=== PATIENT | female | born 1930 | race Caucasian/White ===

== ENCOUNTER 2017-06-25 09:47 | Emergency (ER) | payer MEDICARE ==
[2017-06-25] MEDS ORDERED: Sodium Chloride 0.9% 2.5 ML Syringe FLUSH PRN (09:49)
[2017-06-25] MEDS ORDERED: Sodium Chloride 0.9% 10 ML Syringe FLUSH PRN (09:49)
[2017-06-25] MEDS ORDERED: Ondansetron 4 MG/2 ML SDV IVPUSH ONE (09:53)
--- NOTE | 2017-06-25 09:57 | EDM.PDOC ---
ED HPI GENERAL MEDICAL PROBLEM - General Chief Complaint: Back Pain or Injury Stated Complaint: AMB Time Seen by Provider: 06/25/17 09:48 Source of Information: Reports: EMS History Limitations: Reports: No Limitations - History of Present Illness INITIAL COMMENTS - FREE TEXT/NARRATIVE: History of present illness: []Patient fell yesterday without loss of consciousness was helped by her daughter. She arrived by EMS in a c-collar. She hit the back of her head and complains of a headache, neck pain, left shoulder pain and right knee pain. Not ambulated since this injury. She denies any chest pain or any new shortness of breath. Review of systems: As per history of present illness and below otherwise all systems reviewed and negative. Past medical history: As per history of present illness and as reviewed below otherwise noncontributory. Surgical history: As per history of present illness and as reviewed below otherwise noncontributory. Social history: No reported history of drug or alcohol abuse. Family history: As per history of present illness and as reviewed below otherwise noncontributory. Physical exam: General: Well developed, well nourished in NAD HEENT: Atraumatic, normocephalic, pupils reactive, negative for conjunctival pallor or scleral icterus, mucous membranes moist, throat clear, neck supple, nontender, trachea midline. Lungs: Clear to auscultation, breath sounds equal bilaterally, chest nontender. Heart: S1S2, regular, negative for clicks, rubs, or JVD. Abdomen: Soft, nondistended, nontender. Negative for masses or hepatosplenomegaly. Negative for costovertebral tenderness. Pelvis: Stable nontender. Genitourinary: Deferred. Rectal: Deferred. Extremities: Atraumatic, no obvious injuries, tenderness of the left shoulder without any swelling erythema or deformities, tenderness of the right knee without any obvious deformities tenderness or swelling. Neurovascular unremarkable. Neuro: Awake, alert, oriented. Cranial nerves II through XII unremarkable. Cerebellum unremarkable. Motor and sensory unremarkable throughout. Exam nonfocal. Diagnostics: []CT head and neck are negative, x-rays of her left shoulder and right knee are also negative. Labs are normal UA shows a mild UTI Therapeutics: [] Impression: []UTI, fall Plan: []Tylenol or Motrin for pain Bactrim as directed Definitive disposition and diagnosis as appropriate pending reevaluation and review of above. Lower Back Pain Score (Numeric/FACES): 6 - Related Data Allergies Allergy/AdvReac Type Severity Reaction Status Date / Time acetaminophen Allergy Hallucinati Verified 06/25/17 10:15 [From Darvocet-N] ons candesartan [From Atacand] Allergy Hallucinati Verified 06/25/17 10:15 ons enalaprilat [From Vasotec] Allergy Hallucinati Verified 06/25/17 10:15 ons lisinopril Allergy Hallucinati Verified 06/25/17 10:15 ons morphine Allergy Hallucinati Verified 06/25/17 10:15 ons propoxyphene Allergy Hallucinati Verified 06/25/17 10:15 [From Darvocet-N] ons tramadol Allergy Hallucinati Verified 06/25/17 10:15 ons Home Meds: Home Meds Acetaminophen 500 mg PO DAILY 06/25/17 [History] Albuterol [Proventil HFA] 200 puff INH DAILY 06/25/17 [History] Aspirin 325 mg PO DAILY 06/25/17 [History] Budesonide/Formoterol [Symbicort 80-4.5 MCG] 6.9 gm INH DAILYRT 06/25/17 [ History] Calcium Carbonate 1,250 mg PO DAILY 06/25/17 [History] Carboxymethylcellulose [Methocel E 4 M] 1 gm PO DAILY 06/25/17 [History] Diclofenac Sodium 1 unit TOP DAILY 06/25/17 [History] Furosemide 20 mg PO DAILY 06/25/17 [History] Losartan [Cozaar] 50 mg PO DAILY 06/25/17 [History] Lutein/Zeaxanthin [Lutein-Zeaxanthin 25-5 mg Sfgl] 1 cap PO DAILY 06/25/17 [ History] Metoprolol Tartrate 50 mg PO DAILY 06/25/17 [History] Multivitamin [Multivitamins] 1 tab PO DAILY 06/25/17 [History] Potassium Chloride 10 meq PO DAILY 06/25/17 [History] Sulfamethoxazole/Trimethoprim [Bactrim Ds Tablet] 1 each PO BID #20 tablet 06/25 [Rx] atorvaSTATin [Lipitor] 40 mg PO DAILY 06/25/17 [History] Review of Systems - Review of Systems Review Of Systems: See Below (See history of present illness) ED EXAM, GENERAL - Physical Exam Exam: See Below (See history of present illness) Course - Vital Signs Last Recorded V/S: Last Vital Signs Temp 96.6 F 06/25/17 10:37 Pulse 66 06/25/17 12:10 Resp 13 06/25/17 12:10 BP 170/77 H 06/25/17 12:10 Pulse Ox 93 L 06/25/17 12:10 - Orders/Labs/Meds Orders: Active Orders 24 hr Category Date Time Status Ibuprofen [Motrin] Med 06/25/17 12:31 Once 400 mg PO ONETIME ONE Sodium Chloride 0.9% [Saline Flush] Med 06/25/17 09:49 Active 10 ml FLUSH ASDIRECTED PRN Sodium Chloride 0.9% [Saline Flush] Med 06/25/17 09:49 Active 2.5 ml FLUSH ASDIRECTED PRN Saline Lock Insert [OM.PC] Stat Oth 06/25/17 09:49 Ordered Medication Orders Sodium Chloride (Saline Flush) 10 ml FLUSH ASDIRECTED PRN PRN Reason: Keep Vein Open Last Admin: 06/25/17 10:48 Dose: 10 ml Sodium Chloride (Saline Flush) 2.5 ml FLUSH ASDIRECTED PRN PRN Reason: Keep Vein Open Last Admin: 06/25/17 10:48 Dose: 2.5 ml Labs: Laboratory Tests 06/25/17 06/25/17 06/25/17 Range/Units 10:05 10:05 10:18 WBC 6.21 (4.0-11.0) K/uL RBC 3.85 L (4.30-5.90) M/uL Hgb 11.6 L (12.0-16.0) g/dL Hct 36.2 (36.0-46.0) % MCV 94.0 (80.0-98.0) fL MCH 30.1 (27.0-32.0) pg MCHC 32.0 (31.0-37.0) g/dL RDW Std Deviation 48.4 (28.0-62.0) fl RDW Coeff of Rosalinda 14 (11.0-15.0) % Plt Count 164 (150-400) K/uL MPV 9.20 (7.40-12.00) fL Neut % (Auto) 65.5 (48.0-80.0) % Lymph % (Auto) 18.2 (16.0-40.0) % [place] % (Auto) 7.7 (0.0-15.0) % Eos % (Auto) 8.1 H (0.0-7.0) % Baso % (Auto) 0.5 (0.0-1.5) % Neut # (Auto) 4.1 (1.4-5.7) K/uL Lymph # (Auto) 1.1 (0.6-2.4) K/uL [place] # (Auto) 0.5 (0.0-0.8) K/uL Eos # (Auto) 0.5 (0.0-0.7) K/uL Baso # (Auto) 0.0 (0.0-0.1) K/uL Nucleated RBC % 0.0 /100WBC Nucleated RBCs # 0 K/uL Sodium 138 (136-146) mmol/L Potassium 4.7 (3.5-5.1) mmol/L Chloride 106 (98-110) mmol/L Carbon Dioxide 23 (21-31) mmol/L BUN 11 (6.0-23.0) mg/dL Creatinine 0.8 (0.6-1.5) mg/dL Est Cr Clr Drug Dosing 27.85 mL/min Estimated GFR (MDRD) > 60.0 ml/min Glucose 97 (60-110) mg/dL Calcium 9.8 (8.8-10.8) mg/dL Total Bilirubin 1.0 (0.1-1.5) mg/dL AST 24 (5-40) IU/L ALT 12 (8-54) IU/L Alkaline Phosphatase 75 (40-150) Total Protein 6.3 (6.0-8.0) g/dL Albumin 3.8 (3.4-4.8) g/dL Globulin 2.5 (2.0-3.5) g/dL Albumin/Globulin Ratio 1.5 (1.3-2.8) Urine Color YELLOW Urine Appearance CLEAR Urine pH 5.5 (5.0-8.0) Ur Specific Mineral <= 1.005 (1.001-1.035) Urine Protein NEGATIVE (NEGATIVE) mg/dL Urine Glucose (UA) NEGATIVE (NEGATIVE) mg/dL Urine Ketones NEGATIVE (NEGATIVE) mg/dL Urine Occult Blood TRACE-INTACT (NEGATIVE) Urine Nitrite POSITIVE H (NEGATIVE) Urine Bilirubin NEGATIVE (NEGATIVE) Urine Urobilinogen 0.2 (<2.0) EU/dL Ur Leukocyte Esterase SMALL (NEGATIVE) Urine RBC 0-1 (0-2/HPF) Urine WBC 2-3 (0-5/HPF) Ur Epithelial Cells RARE (NONE-FEW) Urine Bacteria 3+ H (NEGATIVE) Meds: Medications Generic Name Dose Route Start Last Admin Trade Name Freq PRN Reason Stop Dose Admin Sodium Chloride 10 ml 06/25/17 09:49 06/25/17 10:48 Saline Flush FLUSH 10 ml ASDIRECTED PRN Administration Keep Vein Open Sodium Chloride 2.5 ml 06/25/17 09:49 06/25/17 10:48 Saline Flush FLUSH 2.5 ml ASDIRECTED PRN Administration Keep Vein Open Discontinued Medications Generic Name Dose Route Start Last Admin Trade Name Freq PRN Reason Stop Dose Admin Morphine Sulfate 2 mg 06/25/17 09:53 06/25/17 10:52 Morphine IVPUSH 06/25/17 09:54 Not Given ONETIME ONE Ondansetron HCl 4 mg 06/25/17 09:53 06/25/17 10:48 Zofran IVPUSH 06/25/17 09:54 4 mg ONETIME ONE Administration Departure - Departure Time of Disposition: 12:31 Disposition: Home, Self-Care 01 Condition: Good Clinical Impression: Fall Qualifiers: Encounter type: initial encounter Qualified Code(s): W19.XXXA - Unspecified fall, initial encounter UTI (urinary tract infection) Qualifiers: Urinary tract infection type: site unspecified Hematuria presence: without hematuria Qualified Code(s): N39.0 - Urinary tract infection, site not specified - Discharge Information Prescriptions: Sulfamethoxazole/Trimethoprim [Bactrim Ds Tablet] 1 each PO BID #20 tablet Referrals: Bradley Palma MD [Primary Care Provider] - Forms: ED Department Discharge Additional Instructions: The following information is given to patients seen in the emergency department who are being discharged to home. This information is to outline your options for follow-up care. We provide all patients seen in our emergency department with a follow-up referral. The need for follow-up, as well as the timing and circumstances, are variable depending upon the specifics of your emergency department visit. If you don't have a primary care physician on staff, we will provide you with a referral. We always advise you to contact your personal physician following an emergency department visit to inform them of the circumstance of the visit and for follow-up with them and/or the need for any referrals to a consulting specialist. The emergency department will also refer you to a specialist when appropriate. This referral assures that you have the opportunity for follow-up care with a specialist. All of these measure are taken in an effort to provide you with optimal care, which includes your follow-up. Under all circumstances we always encourage you to contact your private physician who remains a resource for coordinating your care. When calling for follow-up care, please make the office aware that this follow-up is from your recent emergency room visit. If for any reason you are refused follow-up, please contact the [facility] Emergency Department at and asked to speak to the emergency department charge nurse. Bactrim as directed Tylenol or Motrin for pain follow-up with PMD [facility] [address] [place] [id number] - My Orders Last 24 Hours: My Active Orders 06/25/17 09:49 Sodium Chloride 0.9% [Saline Flush] 10 ml FLUSH ASDIRECTED PRN Sodium Chloride 0.9% [Saline Flush] 2.5 ml FLUSH ASDIRECTED PRN Saline Lock Insert [OM.PC] Stat 06/25/17 12:31 Ibuprofen [Motrin] 400 mg PO ONETIME ONE - Assessment/Plan Last 24 Hours: My Active Orders 06/25/17 09:49 Sodium Chloride 0.9% [Saline Flush] 10 ml FLUSH ASDIRECTED PRN Sodium Chloride 0.9% [Saline Flush] 2.5 ml FLUSH ASDIRECTED PRN Saline Lock Insert [OM.PC] Stat 06/25/17 12:31 Ibuprofen [Motrin] 400 mg PO ONETIME ONE
[2017-06-25] MEDS: Morphine 2 MG/ML Syringe IVPUSH ONE ×2 (10:48→10:52)
[2017-06-25 10:56] LABS: CHLORIDE,CL 106 mmol/L (98-110); SODIUM,NA 138 mmol/L (136-146)
--- NOTE | 2017-06-25 11:40 | CT ---
EXAMINATION: Non contrast CT head. Coronal and sagittal reformats. HISTORY: Pain FINDINGS: No evidence of intra or extra axial hemorrhage, mass, midline shift, hydrocephalus or edema. Moderat e generalized atrophy and periventricular and subcortical white matter hypodensities. No hypoattenuation changes in the major vascular territories to suggest acute infarct. No abnormal intracranial calcifications are detected. No evidence of substantial vascular calcificat ions. Paranasal sinuses and mastoid air cells are well aerated without substantial findings. Old left lami na papyracea fracture. Pituitary fossa appears unremarkable. Calvarium is intact. No evidence of skull fracture. IMPRESSION: 1. No acute intracranial findings. 2. Generalized atrophy and small vessel ischemic changes.
--- NOTE | 2017-06-25 12:09 | CR ---
EXAMINATION: Left shoulder HISTORY: Pain COMPARISON: None TECHNIQUE: 3 views FINDINGS: Severe joint space narrowing is noted within the glenohumeral joint and moderate acromiocla vicular osseous changes. No fracture or acute osseous abnormality. Bone mineralization is normal to o steopenic. 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
--- NOTE | 2017-06-25 12:11 | CR ---
EXAMINATION: Right knee HISTORY: Pain COMPARISON: None TECHNIQUE: 3 views FINDINGS: There is no acute osseous abnormality, effusion, dislocation, or fracture. Right total knee hardware is demonstrated in good position and alignment. Joint space narrowing and degenerative limon ges noted within the patellofemoral compartment. Bone mineralization is otherwise osteopenic. Vascula r calcifications are noted. IMPRESSION: Degenerative and postoperative changes without acute findings.
--- NOTE | 2017-06-25 12:15 | CT ---
EXAMINATION: CT cervical spine HISTORY: Pain COMPARISON: None TECHNIQUE: Axial CT images obtained through the cervical spine without contrast. Coronal and sagittal reconstructions obtained. FINDINGS: Mild reversal of the normal cervical lordosis. The vertebral body heights appear maintained . No definite fracture or acute osseous abnormality. The osseous structures are notable the osteopeni c. Trace anterolisthesis of C4 on C5. Mild marginal osteophytes osteophyte disc complexes noted throu ghout the cervical spine. Mild vascular calcifications within the carotids. The lung apices are clear . Paravertebral soft tissues appear normal. IMPRESSION: 1. Moderate degenerative changes and osteopenia without acute findings.
[2017-06-25] MEDS ORDERED: Ibuprofen 400 MG Tab PO ONE (12:31)
== END 2017-06-25 12:59 | disposition home or self-care (01) ==
LOC: MW.ED 09:47
DX: M54.2 Cervicalgia (principal); R51 Headache; M25.512 Pain in left shoulder; M25.561 Pain in right knee; N39.0 Urinary tract infection, site not specified; Z79.82 Long term (current) use of aspirin; Z79.899 Other long term (current) drug therapy; Z88.5 Allergy status to narcotic agent; Z88.8 Allergy status to other drugs, medicaments and biological substances; Z88.6 Allergy status to analgesic agent; W19.XXXA Unspecified fall, initial encounter
CPT/HCPCS: 36415; 70450; 72125; 73030; 73562; 80053; 81001; 85025; 96374; 99284; A9270; J2405; J2270

== ENCOUNTER 2017-07-15 15:55 | Emergency (ER) | payer MEDICARE ==
[2017-07-15] MEDS ORDERED: Albuterol/Ipratropium 3.0-0.5 MG/3 ML Neb Soln NEB ONE (17:13)
--- NOTE | 2017-07-15 17:16 | EDM.PDOC ---
ED HPI GENERAL MEDICAL PROBLEM - General Chief Complaint: Respiratory Problem Stated Complaint: coughing up blood Time Seen by Provider: 07/15/17 16:15 Source of Information: Reports: Patient, Family History Limitations: Reports: No Limitations - History of Present Illness INITIAL COMMENTS - FREE TEXT/NARRATIVE: HISTORY AND PHYSICAL: History of present illness: [Pt is brought to the ER by her daughter, whom she lives with. Patient has had a cough for the past 3 days, which has worsened today. Daughter thinks that she may have seen some blood streaked in patient's sputum today and is concerned. Has noticed some wheezing at times. Appetite has been normal. No fever or chills. Patient denies ST, ear aches, runny nose. She has had no sputum production, abd pain, change in bowel or bladder. No chest pain, SOA or difficulty breathing. No swelling to her feet or lower legs. Denies body aches and pains. No recent illness or infection other than today's symptoms. Has not taken any medications for her symptoms. ] Review of systems: As per history of present illness and below otherwise all systems reviewed and negative. Past medical history: As per history of present illness and as reviewed below otherwise noncontributory. Surgical history: As per history of present illness and as reviewed below otherwise noncontributory. Social history: No reported history of drug or alcohol abuse. Family history: As per history of present illness and as reviewed below otherwise noncontributory. Physical exam: HEENT: Atraumatic, normocephalic. Oral mucous membranes are pink and moist. Neck supple, no lymphadenopathy. PERRLA. Conjunctiva clear. Lungs: Wheezing is appreciated throughout all lung renee. Cough is primarily dry. Heart: S1S2, regular rate and rhythm. Abdomen: Soft, nondistended, nontender. Pelvis: Stable nontender. Ambulates well with a wheeled walker. Genitourinary: Deferred. Rectal: Deferred. Extremities: Atraumatic, no swelling or cyanosis to feet or lower legs. Neurovascular unremarkable. Neuro: Awake, alert, oriented. Motor and sensory unremarkable throughout. Exam nonfocal. Diagnostics: [CBC, CMP, influenza A and B swab, chest x-ray] Therapeutics: [DuoNeb] Impression: [Bronchitis Influenza B] Plan: [Chest x-ray is clear. White count shows no elevation, hemoglobin stable. Rx's written for DuoNeb (#30) si per nebulizer TID 0 RF's, Medrol dose pack (#1) sig: use as directed 0 RF's. Daughter verbalized understanding of plan. She would like to pecan picker Rx's tomorrow at their preferred pharmacy. *Of note, it is not noticed until end of shift that patient tested positive for Influenza B. Daughter is notified of this, and that patient is outside the treatment window of benefit for Tamiflu. Encouraged close monitoring and strict return precautions. She is in agreement with today's plan and verbalized understanding.] Definitive disposition and diagnosis as appropriate pending reevaluation and review of above. back pain Pain Score (Numeric/FACES): 5 - Related Data Allergies Allergy/AdvReac Type Severity Reaction Status Date / Time acetaminophen Allergy Hallucinati Verified 06/25/17 10:15 [From Darvocet-N] ons candesartan [From Atacand] Allergy Hallucinati Verified 06/25/17 10:15 ons enalaprilat [From Vasotec] Allergy Hallucinati Verified 06/25/17 10:15 ons lisinopril Allergy Hallucinati Verified 06/25/17 10:15 ons morphine Allergy Hallucinati Verified 06/25/17 10:15 ons propoxyphene Allergy Hallucinati Verified 06/25/17 10:15 [From Darvocet-N] ons tramadol Allergy Hallucinati Verified 06/25/17 10:15 ons Home Meds: Home Meds RX: Acetaminophen 500 mg PO DAILY 06/25/17 [History] RX: Albuterol [Proventil HFA] 200 puff INH DAILY 06/25/17 [History] RX: Aspirin 325 mg PO DAILY 06/25/17 [History] RX: Budesonide/Formoterol [Symbicort 80-4.5 MCG] 6.9 gm INH DAILYRT 06/25/17 [ History] RX: Calcium Carbonate 1,250 mg PO DAILY 06/25/17 [History] RX: Carboxymethylcellulose [Methocel E 4 M] 1 gm PO DAILY 06/25/17 [History] RX: Diclofenac Sodium 1 unit TOP DAILY 06/25/17 [History] RX: Furosemide 20 mg PO DAILY 06/25/17 [History] RX: Losartan [Cozaar] 50 mg PO DAILY 06/25/17 [History] RX: Lutein/Zeaxanthin [Lutein-Zeaxanthin 25-5 mg Sfgl] 1 cap PO DAILY 06/25/17 [ History] RX: Metoprolol Tartrate 50 mg PO DAILY 06/25/17 [History] RX: Multivitamin [Multivitamins] 1 tab PO DAILY 06/25/17 [History] RX: Potassium Chloride 10 meq PO DAILY 06/25/17 [History] RX: atorvaSTATin [Lipitor] 40 mg PO DAILY 06/25/17 [History] Sulfamethoxazole/Trimethoprim [Bactrim Ds Tablet] 1 each PO BID #20 tablet 06/25 [Rx] Past Medical History HEENT History: Reports: Other (See Below) Other HEENT History: nasal polups Cardiovascular History: Reports: Afib, High Cholesterol, Other (See Below) Other Cardiovascular History: Enlagred heart Respiratory History: Reports: None Gastrointestinal History: Reports: None Genitourinary History: Reports: None TIME BUYER History: Reports: None Musculoskeletal History: Reports: None Neurological History: Reports: TIA, Other (See Below) Other Neuro History: Brain bleed Psychiatric History: Reports: None Endocrine/Metabolic History: Reports: None Hematologic History: Reports: None Immunologic History: Reports: None Oncologic (Cancer) History: Reports: None Dermatologic History: Reports: None - Past Surgical History Head Surgeries/Procedures: Reports: None HEENT Surgical History: Reports: None Cardiovascular Surgical History: Reports: None Respiratory Surgical History: Reports: None GI Surgical History: Reports: None Female Surgical History: Reports: None Endocrine Surgical History: Reports: None Neurological Surgical History: Reports: None Musculoskeletal Surgical History: Reports: Hip Replacement, Joint Replacement, Knee Replacement, Shoulder Replacement Oncologic Surgical History: Reports: None Dermatological Surgical History: Reports: None Social & Family History - Family History Family Medical History: Noncontributory - Tobacco Use Smoking Status *Q: Former Smoker Used Tobacco, but Quit: Yes Month Tobacco Last Used: 35 years ago Second Hand Smoke Exposure: No - Caffeine Use Caffeine Use: Reports: Coffee Caffeine Use Comment: 1 cup - Recreational Drug Use Recreational Drug Use: No ED ROS GENERAL - Review of Systems Review Of Systems: ROS reveals no pertinent complaints other than HPI. ED EXAM, GENERAL - Physical Exam Exam: See Below Course - Vital Signs Last Recorded V/S: Last Vital Signs Temp 97.6 F 03/04/18 16:22 Pulse 62 07/15/17 16:22 Resp 16 07/15/17 16:22 BP 129/69 07/15/17 16:22 Pulse Ox 96 07/15/17 16:22 - Orders/Labs/Meds Orders: Active Orders 24 hr Category Date Time Status RT Aerosol Therapy [RC] ASDIRECTED Care 07/15/17 17:13 Active Chest 2V [CR] Stat Exams 07/15/17 16:20 Taken Labs: Laboratory Tests 07/15/17 07/15/17 Range/Units 16:30 16:30 WBC 3.28 L (4.0-11.0) K/uL RBC 3.78 L (4.30-5.90) M/uL Hgb 11.2 L (12.0-16.0) g/dL Hct 35.2 L (36.0-46.0) % MCV 93.1 (80.0-98.0) fL MCH 29.6 (27.0-32.0) pg MCHC 31.8 (31.0-37.0) g/dL RDW Std Deviation 50.0 (28.0-62.0) fl RDW Coeff of Rosalinda 15 (11.0-15.0) % Plt Count 210 (150-400) K/uL MPV 8.60 (7.40-12.00) fL Neut % (Auto) 43.0 L (48.0-80.0) % Lymph % (Auto) 41.2 H (16.0-40.0) % [place] % (Auto) 8.8 (0.0-15.0) % Eos % (Auto) 6.7 (0.0-7.0) % Baso % (Auto) 0.3 (0.0-1.5) % Neut # (Auto) 1.4 (1.4-5.7) K/uL Lymph # (Auto) 1.4 (0.6-2.4) K/uL [place] # (Auto) 0.3 (0.0-0.8) K/uL Eos # (Auto) 0.2 (0.0-0.7) K/uL Baso # (Auto) 0.0 (0.0-0.1) K/uL Nucleated RBC % 0.0 /100WBC Nucleated RBCs # 0 K/uL Sodium 139 (136-145) mmol/L Potassium 4.4 (3.5-5.1) mmol/L Chloride 104 (98-107) mmol/L Carbon Dioxide 28.3 (21.0-32.0) mmol/L BUN 14 (7.0-18.0) mg/dL Creatinine 1.1 H (0.6-1.0) mg/dL Est Cr Clr Drug Dosing 29.24 mL/min Estimated GFR (MDRD) 46.9 ml/min Glucose 97 (74-106) mg/dL Calcium 9.2 (8.5-10.1) mg/dL Total Bilirubin 0.2 (0.2-1.0) mg/dL AST 27 (15-37) U/L ALT 18 (14-63) U/L Alkaline Phosphatase 156 H (46-116) U/L Total Protein 6.8 (6.4-8.2) g/dL Albumin 3.7 (3.4-5.0) g/dL Globulin 3.1 (2.0-3.5) g/dL Albumin/Globulin Ratio 1.2 L (1.3-2.8) Meds: Medications Discontinued Medications Generic Name Dose Route Start Last Admin Trade Name Freq PRN Reason Stop Dose Admin Albuterol/Ipratropium 3 ml 07/15/17 17:13 07/15/17 17:26 Duoneb 3.0-0.5 Mg/3 Ml NEB 07/15/17 17:14 3 ml ONETIME ONE Administration Departure - Departure Time of Disposition: 18:05 Disposition: Home, Self-Care 01 Condition: Good Clinical Impression: Bronchitis, Influenza B - Discharge Information Instructions: Acute Bronchitis, Adult Referrals: Bradley Palma MD [Primary Care Provider] - Forms: ED Department Discharge Additional Instructions: The following information is given to patients seen in the emergency department who are being discharged to home. This information is to outline your options for follow-up care. We provide all patients seen in our emergency department with a follow-up referral. The need for follow-up, as well as the timing and circumstances, are variable depending upon the specifics of your emergency department visit. If you don't have a primary care physician on staff, we will provide you with a referral. We always advise you to contact your personal physician following an emergency department visit to inform them of the circumstance of the visit and for follow-up with them and/or the need for any referrals to a consulting specialist. The emergency department will also refer you to a specialist when appropriate. This referral assures that you have the opportunity for follow-up care with a specialist. All of these measure are taken in an effort to provide you with optimal care, which includes your follow-up. Under all circumstances we always encourage you to contact your private physician who remains a resource for coordinating your care. When calling for follow-up care, please make the office aware that this follow-up is from your recent emergency room visit. If for any reason you are refused follow-up, please contact the [facility] emergency department at and asked to speak to the emergency department charge nurse. [facility] [address] [place] [id number] Follow-up with your primary care provider or at the clinic listed above in 48- 72 hours. Take medications as prescribed. Use inhaler as needed every 4-6 hours. Return to ER as needed as discussed. - My Orders Last 24 Hours: My Active Orders 07/15/17 16:20 Chest 2V [CR] Stat 07/15/17 17:13 RT Aerosol Therapy [RC] ASDIRECTED - Assessment/Plan Last 24 Hours: My Active Orders 07/15/17 16:20 Chest 2V [CR] Stat 07/15/17 17:13 RT Aerosol Therapy [RC] ASDIRECTED
--- NOTE | 2017-07-16 07:53 | CR ---
EXAM DATE: 07/15/17 PATIENT'S AGE: 87 Patient: JULIANA COOL Facility: [place], [place] Site . Site : 1930 Study: XRay Chest [id number] 4:57:32 PM Ordering Physician: Doctor Fink Final Report: HISTORY: Cough. COMPARISON: 12/04/2010. FINDINGS: Stable cardiomegaly. No evidence for pulmonary edema. The lungs are clear. No evidence for pneumonia. Costophrenic angles sharp. Right shoulder arthroplasty. Dictated by Brianna Nye MD @ Jul 15 2017 5:25PM (Electronic Signature) Report Signed by Proxy. LAMAR
== END 2017-07-15 18:53 | disposition home or self-care (01) ==
LOC: MW.ED 15:55
DX: J10.1 Influenza due to other identified influenza virus with other respiratory manifestations (principal); Z87.891 Personal history of nicotine dependence; I48.91 Unspecified atrial fibrillation; E78.00 Pure hypercholesterolemia, unspecified; Z79.82 Long term (current) use of aspirin; Z79.899 Other long term (current) drug therapy; Z88.5 Allergy status to narcotic agent; Z88.6 Allergy status to analgesic agent; Z88.8 Allergy status to other drugs, medicaments and biological substances
CPT/HCPCS: 36415; 71046; 71046-26; 80053; 85025; 87804; 94640; 99283; 99284-25

== ENCOUNTER 2017-08-20 11:18 | Observation (INO) | payer MEDICARE ==
[2017-08-20] MEDS ORDERED: Sodium Chloride 0.9% 2.5 ML Syringe FLUSH PRN (11:24)
[2017-08-20] MEDS ORDERED: Sodium Chloride 0.9% 10 ML Syringe FLUSH PRN (11:24)
--- NOTE | 2017-08-20 11:27 | EDM.PDOC ---
ED HPI GENERAL MEDICAL PROBLEM - General Stated Complaint: POSSIBLE STROKE, CONFUSE Time Seen by Provider: 08/20/17 11:22 - History of Present Illness INITIAL COMMENTS - FREE TEXT/NARRATIVE: HISTORY AND PHYSICAL: History of present illness: Patient is an 87-year-old female history of TIA who presents with concern of altered mental status this is described as a visual disturbance in which she saw [place] and black stripe color pattern on the blind in on her dog she made her daughter aware of this who brought her here her daughter states in the past she has had TIAs that have begun with these vague visual disturbances upon arrival here patient is awake she is alert she knows her name she knows she is in the hospital in [place] and that her daughter brought her here and does describe the event above. She denies any numbness weakness chest pain shortness of breath nausea vomiting or other complaints. Review of systems: As per history of present illness and below otherwise all systems reviewed and negative. Past medical history: As per history of present illness and as reviewed below otherwise noncontributory. Surgical history: As per history of present illness and as reviewed below otherwise noncontributory. Social history: No reported history of drug or alcohol abuse. Family history: As per history of present illness and as reviewed below otherwise noncontributory. Physical exam: HEENT: Atraumatic, normocephalic, pupils reactive, negative for conjunctival pallor or scleral icterus, mucous membranes right throat clear, neck supple, nontender, trachea midline. Lungs: Clear to auscultation, breath sounds equal bilaterally, chest nontender. Heart: S1S2, regular, negative for clicks, rubs, or JVD. Abdomen: Soft, nondistended, nontender. Negative for masses or hepatosplenomegaly. Negative for costovertebral tenderness. Pelvis: Stable nontender. Genitourinary: Deferred. Rectal: Deferred. Extremities: Atraumatic, negative for cords or calf pain. Neurovascular unremarkable. 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 - Related Data Allergies Allergy/AdvReac Type Severity Reaction Status Date / Time acetaminophen Allergy Hallucinati Verified 08/20/17 11:25 [From Darvocet-N] ons candesartan [From Atacand] Allergy Hallucinati Verified 08/20/17 11:25 ons enalaprilat [From Vasotec] Allergy Hallucinati Verified 08/20/17 11:25 ons lisinopril Allergy Hallucinati Verified 08/20/17 11:25 ons morphine Allergy Hallucinati Verified 08/20/17 11:25 ons propoxyphene Allergy Hallucinati Verified 08/20/17 11:25 [From Darvocet-N] ons tramadol Allergy Hallucinati Verified 08/20/17 11:25 ons Home Meds: Home Meds Acetaminophen 500 mg PO DAILY 06/25/17 [History] Albuterol [Proventil HFA] 200 puff INH DAILY 06/25/17 [History] Aspirin 325 mg PO DAILY 06/25/17 [History] Budesonide/Formoterol [Symbicort 80-4.5 MCG] 6.9 gm INH DAILYRT 06/25/17 [ History] Calcium Carbonate 1,250 mg PO DAILY 06/25/17 [History] Carboxymethylcellulose [Methocel E 4 M] 1 gm PO DAILY 06/25/17 [History] Diclofenac Sodium 1 unit TOP DAILY 06/25/17 [History] Furosemide 20 mg PO DAILY 06/25/17 [History] Losartan [Cozaar] 50 mg PO DAILY 06/25/17 [History] Lutein/Zeaxanthin [Lutein-Zeaxanthin 25-5 mg Sfgl] 1 cap PO DAILY 06/25/17 [ History] Metoprolol Tartrate 50 mg PO DAILY 06/25/17 [History] Multivitamin [Multivitamins] 1 tab PO DAILY 06/25/17 [History] Potassium Chloride 10 meq PO DAILY 06/25/17 [History] atorvaSTATin [Lipitor] 40 mg PO DAILY 06/25/17 [History] Past Medical History HEENT History: Reports: Other (See Below) Other HEENT History: nasal polups Cardiovascular History: Reports: Afib, High Cholesterol, Other (See Below) Other Cardiovascular History: Enlagred heart Respiratory History: Reports: None Gastrointestinal History: Reports: None Genitourinary History: Reports: None 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 Musculoskeletal History: Reports: None Neurological History: Reports: TIA, Other (See Below) Other Neuro History: Brain bleed Psychiatric History: Reports: None Endocrine/Metabolic History: Reports: None Hematologic History: Reports: None Immunologic History: Reports: None Oncologic (Cancer) History: Reports: None Dermatologic History: Reports: None - Past Surgical History Head Surgeries/Procedures: Reports: None HEENT Surgical History: Reports: None Cardiovascular Surgical History: Reports: None Respiratory Surgical History: Reports: None GI Surgical History: Reports: None Female Surgical History: Reports: None Endocrine Surgical History: Reports: None Neurological Surgical History: Reports: None Musculoskeletal Surgical History: Reports: Hip Replacement, Joint Replacement, Knee Replacement, Shoulder Replacement Oncologic Surgical History: Reports: None Dermatological Surgical History: Reports: None Social & Family History - Family History Family Medical History: Noncontributory - Tobacco Use Smoking Status *Q: Former Smoker Used Tobacco, but Quit: Yes Month/Year Tobacco Last Used: 35 years ago Second Hand Smoke Exposure: No - Caffeine Use Caffeine Use: Reports: Coffee Caffeine Use Comment: 1 cup - Recreational Drug Use Recreational Drug Use: No ED ROS GENERAL - Review of Systems Review Of Systems: ROS reveals no pertinent complaints other than HPI. ED EXAM, GENERAL - Physical Exam Exam: See Below (dictation) Course - Vital Signs Last Recorded V/S: Last Vital Signs Temp 35.6 C 08/20/17 11:26 Pulse 65 08/20/17 12:46 Resp 16 08/20/17 12:46 BP 157/76 H 08/20/17 12:46 Pulse Ox 96 08/20/17 12:46 - Orders/Labs/Meds Orders: Active Orders 24 hr Category Date Time Status Cardiac Monitoring [RC] . DIRECTED Care 08/20/17 11:23 Active EKG Documentation Completion [RC] STAT Care 08/20/17 11:23 Active EKG Documentation Completion [RC] STAT Care 08/20/17 11:25 Active Oxygen Therapy, ED [RC] ASDIRECTED Care 08/20/17 11:23 Active Pulse Oximetry [RC] ASDIRECTED Care 08/20/17 11:23 Active CULTURE BLOOD [BC] Stat Lab 08/20/17 11:55 Received CULTURE BLOOD [BC] Stat Lab 08/20/17 12:06 Results CULTURE URINE [RM] Stat Lab 08/20/17 11:55 Ordered DRUG SCREEN, URINE [URCHEM] Stat Lab 08/20/17 11:55 Ordered UA W/MICROSCOPIC [URIN] Stat Lab 08/20/17 11:55 Ordered Sodium Chloride 0.9% [Normal Saline] 500 ml Med 08/20/17 11:30 Active IV STAT Sodium Chloride 0.9% [Saline Flush] Med 08/20/17 11:24 Active 10 ml FLUSH ASDIRECTED PRN Sodium Chloride 0.9% [Saline Flush] Med 08/20/17 11:24 Active 2.5 ml FLUSH ASDIRECTED PRN Blood Culture x2 Reflex Set [OM.PC] Stat Oth 08/20/17 11:24 Ordered Saline Lock Insert [OM.PC] Stat Ot 08/20/17 11:23 Ordered Medication Orders Sodium Chloride (Normal Saline) 500 mls @ 999 mls/hr IV STAT CARLYN Last Admin: 08/20/17 11:58 Dose: 999 mls/hr Sodium Chloride (Saline Flush) 10 ml FLUSH ASDIRECTED PRN PRN Reason: Keep Vein Open Sodium Chloride (Saline Flush) 2.5 ml FLUSH ASDIRECTED PRN PRN Reason: Keep Vein Open Labs: Laboratory Tests 08/20/17 08/20/17 08/20/17 Range/Units 11:35 11:35 11:35 WBC 4.07 (4.0-11.0) K/uL RBC 3.52 L (4.30-5.90) M/uL Hgb 10.5 L (12.0-16.0) g/dL Hct 32.7 L (36.0-46.0) % MCV 92.9 (80.0-98.0) fL MCH 29.8 (27.0-32.0) pg MCHC 32.1 (31.0-37.0) g/dL RDW Std Deviation 51.9 (28.0-62.0) fl RDW Coeff of Rosalinda 15 (11.0-15.0) % Plt Count 210 (150-400) K/uL MPV 8.80 (7.40-12.00) fL Neut % (Auto) 49.1 (48.0-80.0) % Lymph % (Auto) 36.4 (16.0-40.0) % Beck[place] % (Auto) 6.9 (0.0-15.0) % Eos % (Auto) 6.9 (0.0-7.0) % Baso % (Auto) 0.7 (0.0-1.5) % Neut # (Auto) 2.0 (1.4-5.7) K/uL Lymph # (Auto) 1.5 (0.6-2.4) K/uL Beckham # (Auto) 0.3 (0.0-0.8) K/uL Eos # (Auto) 0.3 (0.0-0.7) K/uL Baso # (Auto) 0.0 (0.0-0.1) K/uL Nucleated RBC % 0.0 /100WBC Nucleated RBCs # 0 K/uL INR 1.13 Sodium 144 (136-145) mmol/L Potassium 3.8 (3.5-5.1) mmol/L Chloride 108 H (98-107) mmol/L Carbon Dioxide 27.7 (21.0-32.0) mmol/L BUN 14 (7.0-18.0) mg/dL Creatinine 0.9 (0.6-1.0) mg/dL Est Cr Clr Drug Dosing 37.31 mL/min Estimated GFR (MDRD) 59.1 ml/min Glucose 99 (74-106) mg/dL Calcium 9.2 (8.5-10.1) mg/dL Total Bilirubin 0.6 (0.2-1.0) mg/dL AST 19 (15-37) IU/L ALT 12 L (14-63) IU/L Alkaline Phosphatase 97 (46-116) U/L Ammonia (19-54) ug/dL Troponin I 0.090 H* (0.000-0.056) ng/mL Total Protein 6.1 L (6.4-8.2) g/dL Albumin <0.6 L (3.4-5.0) g/dL Globulin 6.1 H (2.0-3.5) g/dL Albumin/Globulin Ratio 0.0 L (1.3-2.8) Urine Color Urine Appearance Urine pH (5.0-8.0) Ur Specific [place] (1.001-1.035) Urine Protein (NEGATIVE) mg/dL Urine Glucose (UA) (NEGATIVE) mg/dL Urine Ketones (NEGATIVE) mg/dL Urine Occult Blood (NEGATIVE) Urine Nitrite (NEGATIVE) Urine Bilirubin (NEGATIVE) Urine Urobilinogen (<2.0) EU/dL Ur Leukocyte Esterase (NEGATIVE) Urine RBC (0-2/HPF) Urine WBC (0-5/HPF) Ur Epithelial Cells (NONE-FEW) Urine Bacteria (NEGATIVE) Urine Opiates Screen (NEGATIVE) Ur Oxycodone Screen (NEGATIVE) Urine Methadone Screen (NEGATIVE) Ur Barbiturates Screen (NEGATIVE) Ur Phencyclidine Scrn (NEGATIVE) Ur Amphetamine Screen (NEGATIVE) U Methamphetamines Scrn (NEGATIVE) U Benzodiazepines Scrn (NEGATIVE) U Cocaine Metab Screen (NEGATIVE) U Marijuana (THC) Screen (NEGATIVE) Ethyl Alcohol <3 mg/dL 08/20/17 08/20/17 08/20/17 Range/Units 11:35 11:55 11:55 WBC (4.0-11.0) K/uL RBC (4.30-5.90) M/uL Hgb (12.0-16.0) g/dL Hct (36.0-46.0) % MCV (80.0-98.0) fL MCH (27.0-32.0) pg MCHC (31.0-37.0) g/dL RDW Std Deviation (28.0-62.0) fl RDW Coeff of Rosalinda (11.0-15.0) % Plt Count (150-400) K/uL MPV (7.40-12.00) fL Neut % (Auto) (48.0-80.0) % Lymph % (Auto) (16.0-40.0) % Beckham % (Auto) (0.0-15.0) % Eos % (Auto) (0.0-7.0) % Baso % (Auto) (0.0-1.5) % Neut # (Auto) (1.4-5.7) K/uL Lymph # (Auto) (0.6-2.4) K/uL Beckham # (Auto) (0.0-0.8) K/uL Eos # (Auto) (0.0-0.7) K/uL Baso # (Auto) (0.0-0.1) K/uL Nucleated RBC % /100WBC Nucleated RBCs # K/uL INR Sodium (136-145) mmol/L Potassium (3.5-5.1) mmol/L Chloride (98-107) mmol/L Carbon Dioxide (21.0-32.0) mmol/L BUN (7.0-18.0) mg/dL Creatinine (0.6-1.0) mg/dL Est Cr Clr Drug Dosing mL/min Estimated GFR (MDRD) ml/min Glucose (74-106) mg/dL Calcium (8.5-10.1) mg/dL Total Bilirubin (0.2-1.0) mg/dL AST (15-37) IU/L ALT (14-63) IU/L Alkaline Phosphatase (46-116) U/L Ammonia <17 L (19-54) ug/dL Troponin I (0.000-0.056) ng/mL Total Protein (6.4-8.2) g/dL Albumin (3.4-5.0) g/dL Globulin (2.0-3.5) g/dL Albumin/Globulin Ratio (1.3-2.8) Urine Color YELLOW Urine Appearance CLEAR Urine pH 5.0 (5.0-8.0) Ur Specific [place] 1.010 (1.001-1.035) Urine Protein NEGATIVE (NEGATIVE) mg/dL Urine Glucose (UA) NEGATIVE (NEGATIVE) mg/dL Urine Ketones NEGATIVE (NEGATIVE) mg/dL Urine Occult Blood TRACE-LYSED (NEGATIVE) Urine Nitrite NEGATIVE (NEGATIVE) Urine Bilirubin NEGATIVE (NEGATIVE) Urine Urobilinogen 0.2 (<2.0) EU/dL Ur Leukocyte Esterase NEGATIVE (NEGATIVE) Urine RBC 1-2 (0-2/HPF) Urine WBC 0-1 (0-5/HPF) Ur Epithelial Cells RARE (NONE-FEW) Urine Bacteria RARE (NEGATIVE) Urine Opiates Screen NEGATIVE (NEGATIVE) Ur Oxycodone Screen NEGATIVE (NEGATIVE) Urine Methadone Screen NEGATIVE (NEGATIVE) Ur Barbiturates Screen NEGATIVE (NEGATIVE) Ur Phencyclidine Scrn NEGATIVE (NEGATIVE) Ur Amphetamine Screen NEGATIVE (NEGATIVE) U Methamphetamines Scrn NEGATIVE (NEGATIVE) U Benzodiazepines Scrn NEGATIVE (NEGATIVE) U Cocaine Metab Screen NEGATIVE (NEGATIVE) U Marijuana (THC) Screen NEGATIVE (NEGATIVE) Ethyl Alcohol mg/dL Meds: Medications Generic Name Dose Route Start Last Admin Trade Name Freq PRN Reason Stop Dose Admin Sodium Chloride 500 mls @ 999 mls/hr 08/20/17 11:30 08/20/17 11:58 Normal Saline IV 999 mls/hr STAT CARLYN Administration Sodium Chloride 10 ml 08/20/17 11:24 Saline Flush FLUSH ASDIRECTED PRN Keep Vein Open Sodium Chloride 2.5 ml 08/20/17 11:24 Saline Flush FLUSH ASDIRECTED PRN Keep Vein Open Departure - Departure Time of Disposition: 13:15 Disposition: Refer to Observation Condition: Good Clinical Impression: Altered mental status, History of atrial fibrillation, History of TIA ( transient ischemic attack) - Discharge Information Referrals: PCP,None [Primary Care Provider] - - My Orders Last 24 Hours: My Active Orders 08/20/17 11:23 Cardiac Monitoring [RC] . DIRECTED EKG Documentation Completion [RC] STAT Oxygen Therapy, ED [RC] ASDIRECTED Pulse Oximetry [RC] ASDIRECTED Saline Lock Insert [OM.PC] Stat 08/20/17 11:24 Sodium Chloride 0.9% [Saline Flush] 10 ml FLUSH ASDIRECTED PRN Sodium Chloride 0.9% [Saline Flush] 2.5 ml FLUSH ASDIRECTED PRN Blood Culture x2 Reflex Set [OM.PC] Stat 08/20/17 11:25 EKG Documentation Completion [RC] STAT 08/20/17 11:30 Sodium Chloride 0.9% [Normal Saline] 500 ml IV STAT 08/20/17 11:55 CULTURE BLOOD [BC] Stat CULTURE URINE [RM] Stat DRUG SCREEN, URINE [URCHEM] Stat UA W/MICROSCOPIC [URIN] Stat 08/20/17 12:06 CULTURE BLOOD [BC] Stat - Assessment/Plan Last 24 Hours: My Active Orders 08/20/17 11:23 Cardiac Monitoring [RC] . DIRECTED EKG Documentation Completion [RC] STAT Oxygen Therapy, ED [RC] ASDIRECTED Pulse Oximetry [RC] ASDIRECTED Saline Lock Insert [OM.PC] Stat 08/20/17 11:24 Sodium Chloride 0.9% [Saline Flush] 10 ml FLUSH ASDIRECTED PRN Sodium Chloride 0.9% [Saline Flush] 2.5 ml FLUSH ASDIRECTED PRN Blood Culture x2 Reflex Set [OM.PC] Stat 08/20/17 11:25 EKG Documentation Completion [RC] STAT 08/20/17 11:30 Sodium Chloride 0.9% [Normal Saline] 500 ml IV STAT 08/20/17 11:55 CULTURE BLOOD [BC] Stat CULTURE URINE [RM] Stat DRUG SCREEN, URINE [URCHEM] Stat UA W/MICROSCOPIC [URIN] Stat 08/20/17 12:06 CULTURE BLOOD [BC] Stat
[2017-08-20] MEDS ORDERED: Sodium Chloride 0.9% 500 ML IV SCH (11:30)
[2017-08-20 12:10] LABS: CHLORIDE,CL 108 mmol/L (98-107); SODIUM,NA 144 mmol/L (136-145)
--- NOTE | 2017-08-20 12:41 | CR ---
EXAMINATION: Portable chest radiograph. HISTORY: Shortness of breath. FINDINGS: The trachea is midline. The heart is enlarged. Mild aortic calcifications noted. Cardiomediastinal si lhouette is otherwise normal. No pulmonary infiltrates, effusions or pneumothorax. Osseous structures appear osteopenic. Right shoulder hardware noted. Advanced degenerative changes no hanna within the left glenohumeral joint. IMPRESSION: 1. Cardiomegaly without an acute pulmonary finding.
--- NOTE | 2017-08-20 12:54 | CT ---
EXAMINATION: Non contrast CT head. Coronal and sagittal reformats. HISTORY: Pain FINDINGS: No evidence of intra or extra axial hemorrhage, mass, midline shift, hydrocephalus or edema. There i s moderate generalized atrophy with periventricular and subcortical white matter hypodensities. No hypoattenuation changes in the major vascular territories to suggest acute infarct. No abnormal intracranial calcifications are detected. Mild vascular calcifications. Opacification of a few ethmoid air cells is noted. Old left lamina papyracea fracture noted. Old nasa l bone fractures also noted. Pituitary fossa appears unremarkable. Calvarium is intact. No evidence of skull fracture. IMPRESSION: 1. Moderate generalized atrophy and small vessel ischemic changes without acute intracranial findings .
[2017-08-20] MEDS ORDERED: Ondansetron 4 MG Tab.DIS PO PRN (14:12)
[2017-08-20] MEDS ORDERED: Ibuprofen 800 MG Tab PO PRN (14:12)
[2017-08-20] MEDS ORDERED: Albuterol/Ipratropium 3.0-0.5 MG/3 ML Neb Soln NEB PRN (14:12)
--- NOTE | 2017-08-20 14:31 | PCM.HP ---
H&P History of Present Illness - General Date of Service: 08/20/17 Admit Problem/Dx: Admission Diagnosis/Problem Admission Diagnosis/Problem Altered mental status Source of Information: Patient, Family (daughter) History Limitations: Reports: No Limitations - History of Present Illness Initial Comments - Free Text/Narative: 87-year-old female with atrial fibrillation, dyslipidemia and a history of TIA, is being admitted with visual hallucinations and for suspected TIA. Patient was brought into the ER by her daughter after the patient stated she was "seeing things". The patient states that she was seeing little girls running around her room last night and then this morning was seeing black and orange stripes on the fall and on her cat. The daughter states that with the patient's previous TIAs, that the patient would have these visual hallucinations. Patient does not have any other acute concerns at this time and has not had any other neurological deficits. She does have a history of TIA 4 but the daughter notes that in the past her symptoms have come quickly. Patient is currently taking aspirin for her atrial fibrillation. She was previously on other blood thinners but was taken off this medication after she suffered a brain bleed 3 years ago. Patient also suffered a fall at the end of June and hit the back of her head. She was brought into the ER and had a head CT done which was negative. Patient is alert and oriented 3. She denies any chest pain, palpitations, shortness of breath, wheezing, cough, abdominal pain, vomiting, constipation, diarrhea, numbness/tingling/weakness in the upper and lower extremities bilaterally, changes in speech, fever. ER course: CBC and CMP were fairly unremarkable. Head CT was negative. Chest x-ray shows cardiomegaly. Tox screen was negative. Urinalysis was negative. Initial troponin was elevated at 0.090. Patient is asymptomatic in terms of chest pain or palpitations. She also received 500 mL of IV fluid. - Related Data Allergies/Adverse Reactions: Allergies Allergy/AdvReac Type Severity Reaction Status Date / Time acetaminophen Allergy Hallucinati Verified 08/20/17 11:25 [From Darvocet-N] ons candesartan [From Atacand] Allergy Hallucinati Verified 08/20/17 11:25 ons enalaprilat [From Vasotec] Allergy Hallucinati Verified 08/20/17 11:25 ons lisinopril Allergy Hallucinati Verified 08/20/17 11:25 ons morphine Allergy Hallucinati Verified 08/20/17 11:25 ons propoxyphene Allergy Hallucinati Verified 08/20/17 11:25 [From Carlos] ons tramadol Allergy Hallucinati Verified 08/20/17 11:25 ons Home Medications: Home Meds Acetaminophen 500 mg PO DAILY 06/25/17 [History] Albuterol [Proventil HFA] 200 puff INH DAILY 06/25/17 [History] Aspirin 325 mg PO DAILY 06/25/17 [History] Budesonide/Formoterol [Symbicort 80-4.5 MCG] 6.9 gm INH DAILYRT 06/25/17 [ History] Calcium Carbonate 1,250 mg PO DAILY 06/25/17 [History] Carboxymethylcellulose [Methocel E 4 M] 1 gm PO DAILY 06/25/17 [History] Diclofenac Sodium 1 unit TOP DAILY 06/25/17 [History] Furosemide 20 mg PO DAILY 06/25/17 [History] Losartan [Cozaar] 50 mg PO DAILY 06/25/17 [History] Lutein/Zeaxanthin [Lutein-Zeaxanthin 25-5 mg Sfgl] 1 cap PO DAILY 06/25/17 [ History] Metoprolol Tartrate 50 mg PO DAILY 06/25/17 [History] Multivitamin [Multivitamins] 1 tab PO DAILY 06/25/17 [History] Potassium Chloride 10 meq PO DAILY 06/25/17 [History] atorvaSTATin [Lipitor] 40 mg PO DAILY 06/25/17 [History] Past Medical History HEENT History: Reports: Other (See Below) Other HEENT History: nasal polups Cardiovascular History: Reports: Afib, High Cholesterol, Other (See Below) Other Cardiovascular History: Enlagred heart Respiratory History: Reports: None Gastrointestinal History: Reports: None Genitourinary History: Reports: None PHOTOGRAPHIC PLATEMAKER History: Reports: None Musculoskeletal History: Reports: None Neurological History: Reports: TIA, Other (See Below) Other Neuro History: Brain bleed Psychiatric History: Reports: None Endocrine/Metabolic History: Reports: None Hematologic History: Reports: None Immunologic History: Reports: None Oncologic (Cancer) History: Reports: None Dermatologic History: Reports: None - Past Surgical History Head Surgeries/Procedures: Reports: None HEENT Surgical History: Reports: None Cardiovascular Surgical History: Reports: None Respiratory Surgical History: Reports: None GI Surgical History: Reports: None Female Surgical History: Reports: None Endocrine Surgical History: Reports: None Neurological Surgical History: Reports: None Musculoskeletal Surgical History: Reports: Hip Replacement, Joint Replacement, Knee Replacement, Shoulder Replacement Oncologic Surgical History: Reports: None Dermatological Surgical History: Reports: None Social & Family History - Family History Family Medical History: Noncontributory - Tobacco Use Smoking Status *Q: Former Smoker Used Tobacco, but Quit: Yes Month/Year Tobacco Last Used: 35 years ago Second Hand Smoke Exposure: No - Caffeine Use Caffeine Use: Reports: Coffee Caffeine Use Comment: 1 cup - Recreational Drug Use Recreational Drug Use: No H&P Review of Systems - Review of Systems: Review Of Systems: See Below General: Reports: No Symptoms HEENT: Reports: No Symptoms Pulmonary: Reports: No Symptoms Cardiovascular: Reports: No Symptoms Gastrointestinal: Reports: No Symptoms Genitourinary: Reports: No Symptoms Musculoskeletal: Reports: No Symptoms Skin: Reports: No Symptoms Psychiatric: Reports: No Symptoms Neurological: Reports: Other (Visual hallucinations) Hematologic/Lymphatic: Reports: No Symptoms Immunologic: Reports: No Symptoms Exam - Exam Exam: See Below - Vital Signs Vital Signs: Last Vital Signs Temp 96.1 F 08/20/17 11:26 Pulse 68 08/20/17 13:33 Resp 16 08/20/17 12:46 BP 162/82 H 08/20/17 13:33 Pulse Ox 96 08/20/17 12:46 Weight: 162 lb 0.636 oz - Exam General: Alert, Oriented, Cooperative HEENT: Conjunctiva Clear, EACs Clear, EOMI, Hearing Intact, Mucosa Moist & [place] , PERRLA Neck: Supple, Trachea Midline, 2 Lungs: Clear to Auscultation, Normal Respiratory Effort Cardiovascular: Regular Rate, Regular Rhythm GI/Abdominal Exam: Normal Bowel Sounds, Soft, Non-Tender, No Organomegaly, No Distention, No Abnormal Bruit, No Mass, Pelvis Stable Extremities: Normal Inspection, Normal Range of Motion, Non-Tender, No Pedal Edema, Normal Capillary Refill Peripheral Pulses: 2+: Radial (L), Radial (R), Posterior Tibial (L), Posterior Tibial (R) Skin: Warm, Dry, Intact Neurological: Cranial Nerves Intact, Strength Equal Bilateral, Normal Speech, Sensation Intact Neuro Extensive - Mental Status: Alert, Oriented x3, Normal Mood/Affect, Normal Cognition, Memory Intact Neuro Extensive - Motor, Sensory, Reflexes: CN II-XII Intact Psychiatric: Alert, Normal Affect, Normal Mood - Patient Data Lab Results Last 24 hrs: Laboratory Results - last 24 hr 08/20/17 08/20/17 08/20/17 Range/Units 11:35 11:35 11:35 WBC 4.07 (4.0-11.0) K/uL RBC 3.52 L (4.30-5.90) M/uL Hgb 10.5 L (12.0-16.0) g/dL Hct 32.7 L (36.0-46.0) % MCV 92.9 (80.0-98.0) fL MCH 29.8 (27.0-32.0) pg MCHC 32.1 (31.0-37.0) g/dL RDW Std Deviation 51.9 (28.0-62.0) fl RDW Coeff of Rosalinda 15 (11.0-15.0) % Plt Count 210 (150-400) K/uL MPV 8.80 (7.40-12.00) fL Neut % (Auto) 49.1 (48.0-80.0) % Lymph % (Auto) 36.4 (16.0-40.0) % Lee % (Auto) 6.9 (0.0-15.0) % Eos % (Auto) 6.9 (0.0-7.0) % Baso % (Auto) 0.7 (0.0-1.5) % Neut # (Auto) 2.0 (1.4-5.7) K/uL Lymph # (Auto) 1.5 (0.6-2.4) K/uL Lee # (Auto) 0.3 (0.0-0.8) K/uL Eos # (Auto) 0.3 (0.0-0.7) K/uL Baso # (Auto) 0.0 (0.0-0.1) K/uL Nucleated RBC % 0.0 /100WBC Nucleated RBCs # 0 K/uL INR 1.13 Sodium 144 (136-145) mmol/L Potassium 3.8 (3.5-5.1) mmol/L Chloride 108 H (98-107) mmol/L Carbon Dioxide 27.7 (21.0-32.0) mmol/L BUN 14 (7.0-18.0) mg/dL Creatinine 0.9 (0.6-1.0) mg/dL Est Cr Clr Drug Dosing 37.31 mL/min Estimated GFR (MDRD) 59.1 ml/min Glucose 99 (74-106) mg/dL Calcium 9.2 (8.5-10.1) mg/dL Total Bilirubin 0.6 (0.2-1.0) mg/dL AST 19 (15-37) IU/L ALT 12 L (14-63) IU/L Alkaline Phosphatase 97 (46-116) U/L Ammonia (19-54) ug/dL Troponin I 0.090 H* (0.000-0.056) ng/mL Total Protein 6.1 L (6.4-8.2) g/dL Albumin <0.6 L (3.4-5.0) g/dL Globulin 6.1 H (2.0-3.5) g/dL Albumin/Globulin Ratio 0.0 L (1.3-2.8) Urine Color Urine Appearance Urine pH (5.0-8.0) Ur Specific [place] (1.001-1.035) Urine Protein (NEGATIVE) mg/dL Urine Glucose (UA) (NEGATIVE) mg/dL Urine Ketones (NEGATIVE) mg/dL Urine Occult Blood (NEGATIVE) Urine Nitrite (NEGATIVE) Urine Bilirubin (NEGATIVE) Urine Urobilinogen (<2.0) EU/dL Ur Leukocyte Esterase (NEGATIVE) Urine RBC (0-2/HPF) Urine WBC (0-5/HPF) Ur Epithelial Cells (NONE-FEW) Urine Bacteria (NEGATIVE) Urine Opiates Screen (NEGATIVE) Ur Oxycodone Screen (NEGATIVE) Urine Methadone Screen (NEGATIVE) Ur Barbiturates Screen (NEGATIVE) Ur Phencyclidine Scrn (NEGATIVE) Ur Amphetamine Screen (NEGATIVE) U Methamphetamines Scrn (NEGATIVE) U Benzodiazepines Scrn (NEGATIVE) U Cocaine Metab Screen (NEGATIVE) U Marijuana (THC) Screen (NEGATIVE) Ethyl Alcohol <3 mg/dL 08/20/17 08/20/17 08/20/17 Range/Units 11:35 11:55 11:55 WBC (4.0-11.0) K/uL RBC (4.30-5.90) M/uL Hgb (12.0-16.0) g/dL Hct (36.0-46.0) % MCV (80.0-98.0) fL MCH (27.0-32.0) pg MCHC (31.0-37.0) g/dL RDW Std Deviation (28.0-62.0) fl RDW Coeff of Rosalinda (11.0-15.0) % Plt Count (150-400) K/uL MPV (7.40-12.00) fL Neut % (Auto) (48.0-80.0) % Lymph % (Auto) (16.0-40.0) % Lee % (Auto) (0.0-15.0) % Eos % (Auto) (0.0-7.0) % Baso % (Auto) (0.0-1.5) % Neut # (Auto) (1.4-5.7) K/uL Lymph # (Auto) (0.6-2.4) K/uL Lee # (Auto) (0.0-0.8) K/uL Eos # (Auto) (0.0-0.7) K/uL Baso # (Auto) (0.0-0.1) K/uL Nucleated RBC % /100WBC Nucleated RBCs # K/uL INR Sodium (136-145) mmol/L Potassium (3.5-5.1) mmol/L Chloride (98-107) mmol/L Carbon Dioxide (21.0-32.0) mmol/L BUN (7.0-18.0) mg/dL Creatinine (0.6-1.0) mg/dL Est Cr Clr Drug Dosing mL/min Estimated GFR (MDRD) ml/min Glucose (74-106) mg/dL Calcium (8.5-10.1) mg/dL Total Bilirubin (0.2-1.0) mg/dL AST (15-37) IU/L ALT (14-63) IU/L Alkaline Phosphatase (46-116) U/L Ammonia <17 L (19-54) ug/dL Troponin I (0.000-0.056) ng/mL Total Protein (6.4-8.2) g/dL Albumin (3.4-5.0) g/dL Globulin (2.0-3.5) g/dL Albumin/Globulin Ratio (1.3-2.8) Urine Color YELLOW Urine Appearance CLEAR Urine pH 5.0 (5.0-8.0) Ur Specific [place] 1.010 (1.001-1.035) Urine Protein NEGATIVE (NEGATIVE) mg/dL Urine Glucose (UA) NEGATIVE (NEGATIVE) mg/dL Urine Ketones NEGATIVE (NEGATIVE) mg/dL Urine Occult Blood TRACE-LYSED (NEGATIVE) Urine Nitrite NEGATIVE (NEGATIVE) Urine Bilirubin NEGATIVE (NEGATIVE) Urine Urobilinogen 0.2 (<2.0) EU/dL Ur Leukocyte Esterase NEGATIVE (NEGATIVE) Urine RBC 1-2 (0-2/HPF) Urine WBC 0-1 (0-5/HPF) Ur Epithelial Cells RARE (NONE-FEW) Urine Bacteria RARE (NEGATIVE) Urine Opiates Screen NEGATIVE (NEGATIVE) Ur Oxycodone Screen NEGATIVE (NEGATIVE) Urine Methadone Screen NEGATIVE (NEGATIVE) Ur Barbiturates Screen NEGATIVE (NEGATIVE) Ur Phencyclidine Scrn NEGATIVE (NEGATIVE) Ur Amphetamine Screen NEGATIVE (NEGATIVE) U Methamphetamines Scrn NEGATIVE (NEGATIVE) U Benzodiazepines Scrn NEGATIVE (NEGATIVE) U Cocaine Metab Screen NEGATIVE (NEGATIVE) U Marijuana (THC) Screen NEGATIVE (NEGATIVE) Ethyl Alcohol mg/dL Result Diagrams: 08/20/17 11:35 08/20/17 11:35 Nadir Results Last 24 hrs: Microbiology 08/20/17 12:06 Anaerobic Blood Culture - Final Blood - Venous - Lab Draw - Problem List (1) Altered mental status SNOMED Code(s): 380625486 ICD Code: R41.82 - ALTERED MENTAL STATUS, UNSPECIFIED Status: Acute Current Visit: Yes (2) History of TIA (transient ischemic attack) SNOMED Code(s): 030577768 ICD Code: Z86.73 - PRSNL HX OF TIA (TIA), AND CEREB INFRC W/O RESID DEFICITS Status: Acute Current Visit: Yes Problem List Initiated/Reviewed/Updated: Yes Orders Last 24hrs: Active Orders 24 hr Category Date Time Status Patient Status [ADT] Stat ADT 08/20/17 13:17 Active Cardiac Monitoring [RC] CONTINUOUS Care 08/20/17 14:12 Ordered Cardiac Monitoring [RC] Q8H Care 08/20/17 11:23 Active EKG Documentation Completion [RC] STAT Care 08/20/17 11:23 Active EKG Documentation Completion [RC] STAT Care 08/20/17 11:25 Active Height and Weight [RC] DAILY Care 08/20/17 14:12 Ordered Intake and Output [RC] QSHIFT Care 08/20/17 14:12 Ordered Notify Provider Vital Signs [RC] ASDIRECTED Care 08/20/17 14:12 Ordered Oxygen Therapy [RC] PRN Care 08/20/17 14:12 Ordered Oxygen Therapy, ED [RC] ASDIRECTED Care 08/20/17 11:23 Active Pulse Oximetry [RC] ASDIRECTED Care 08/20/17 11:23 Active RT Aerosol Therapy [RC] ASDIRECTED Care 08/20/17 14:15 Ordered Telemetry Monitoring [Cardiac Monitoring] [RC] . Care 08/20/17 14:19 Ordered DIRECTED Up With Assistance [RC] ASDIRECTED Care 08/20/17 14:12 Ordered VTE/DVT Education [RC] PER UNIT ROUTINE Care 08/20/17 14:12 Ordered Vital Signs [RC] Q4H Care 08/20/17 14:12 Ordered PT Evaluation and Treatment [CONS] Routine Cons 08/20/17 14:12 Ordered Heart Healthy Diet [DIET] Diet 08/20/17 Breakfast Ordered Brain w wo Cont [MR] Routine Exams 08/20/17 14:18 Ordered BASIC METABOLIC PANEL,BMP [CHEM] AM Lab 08/21/17 05:11 Ordered CBC WITH AUTO DIFF [HEME] AM Lab 08/21/17 05:11 Ordered CULTURE BLOOD [BC] Stat Lab 08/20/17 11:55 Received CULTURE BLOOD [BC] Stat Lab 08/20/17 12:06 Results CULTURE URINE [RM] Stat Lab 08/20/17 11:55 Ordered DRUG SCREEN, URINE [URCHEM] Stat Lab 08/20/17 11:55 Ordered LIPID PANEL [CHEM] Routine Lab 08/20/17 14:17 Ordered MAGNESIUM [CHEM] AM Lab 08/21/17 05:11 Ordered TROPONIN I [CHEM] Q6H Lab 08/20/17 17:30 Ordered TROPONIN I [CHEM] Q6H Lab 08/20/17 23:30 Ordered UA W/MICROSCOPIC [URIN] Stat Lab 08/20/17 11:55 Ordered Albuterol Med 08/21/17 09:00 Ordered 200 puff INH DAILY Albuterol/Ipratropium [DuoNeb 3.0-0.5 MG/3 ML] Med 08/20/17 14:12 Ordered 3 ml NEB Q4HRRT PRN Aspirin Med 08/21/17 09:00 Ordered 325 mg PO DAILY Budesonide/Formoterol Med 08/21/17 06:00 Ordered 6.9 gm INH DAILYRT Calcium Carbonate [Calcium Carbonate] Med 08/21/17 09:00 Ordered 1,250 mg PO DAILY Carboxymethylcellulose [Methocel E 4 M] Med 08/21/17 09:00 Ordered 1 gm PO DAILY Diclofenac Sodium [Diclofenac Sodium] Med 08/21/17 09:00 Ordered 1 unit TOP DAILY Furosemide [Lasix] Med 08/21/17 09:00 Ordered 20 mg PO DAILY Losartan [Cozaar] Med 08/21/17 09:00 Ordered 50 mg PO DAILY Lutein/Zeaxanthin [Lutein-Zeaxanthin 25-5 mg Sfgl] Med 08/21/17 09:00 Ordered 1 cap PO DAILY Metoprolol Tartrate [Lopressor] Med 08/21/17 09:00 Ordered 50 mg PO DAILY Multivitamin [Multivitamins] Med 08/21/17 09:00 Ordered 1 tab PO DAILY Ondansetron [Zofran ODT] Med 08/20/17 14:12 Ordered 4 mg PO Q4H PRN Potassium Chloride [Potassium Chloride] Med 08/21/17 09:00 Ordered 10 meq PO DAILY Sodium Chloride 0.9% [Normal Saline] 500 ml Med 08/20/17 11:30 Active IV STAT Sodium Chloride 0.9% [Saline Flush] Med 08/20/17 11:24 Active 10 ml FLUSH ASDIRECTED PRN Sodium Chloride 0.9% [Saline Flush] Med 08/20/17 11:24 Active 2.5 ml FLUSH ASDIRECTED PRN atorvaSTATin [Lipitor] Med 08/21/17 09:00 Ordered 40 mg PO DAILY Blood Culture x2 Reflex Set [OM.PC] Stat Oth 08/20/17 11:24 Ordered Saline Lock Insert [OM.PC] Stat Oth 08/20/17 11:23 Ordered Sequential Compression Device [OM.PC] Per Unit Routine Oth 08/20/17 14:13 Ordered Medication Orders Albuterol/Ipratropium (Duoneb 3.0-0.5 Mg/3 Ml) 3 ml NEB Q4HRRT PRN PRN Reason: Shortness Of Breath/wheezing Aspirin (Aspirin) 325 mg PO DAILY CARLYN Atorvastatin Calcium (Lipitor) 40 mg PO DAILY [facility] Furosemide (Lasix) 20 mg PO DAILY [facility] Sodium Chloride (Normal Saline) 500 mls @ 999 mls/hr IV STAT CARLYN Last Admin: 08/20/17 11:58 Dose: 999 mls/hr Losartan Potassium (Cozaar) 50 mg PO DAILY CARLYN Metoprolol Tartrate (Lopressor) 50 mg PO DAILY CARLYN Non-Formulary Medication (Albuterol) 200 puff INH DAILY CARLYN Non-Formulary Medication (Budesonide/Formoterol) 6.9 gm INH DAILYRT CARLYN Non-Formulary Medication (Calcium Carbonate [Calcium Carbonate]) 1,250 mg PO DAILY CARLYN Non-Formulary Medication (Carboxymethylcellulose [Methocel E 4 M]) 1 gm PO DAILY CARLYN Non-Formulary Medication (Diclofenac Sodium [Diclofenac Sodium]) 1 unit TOP DAILY CARLYN Non-Formulary Medication (Lutein/Zeaxanthin [Lutein-Zeaxanthin 25-5 Mg Sfgl]) 1 cap PO DAILY CARLYN Non-Formulary Medication (Multivitamin [Multivitamins]) 1 tab PO DAILY CARLYN Non-Formulary Medication (Potassium Chloride [Potassium Chloride]) 10 meq PO DAILY CARLYN Ondansetron HCl (Zofran Odt) 4 mg PO Q4H PRN PRN Reason: nausea, able to take PO Sodium Chloride (Saline Flush) 10 ml FLUSH ASDIRECTED PRN PRN Reason: Keep Vein Open Sodium Chloride (Saline Flush) 2.5 ml FLUSH ASDIRECTED PRN PRN Reason: Keep Vein Open Assessment/Plan Comment:: 87-year-old female being admitted with visual hallucinations and subsequent altered mental status #1. Visual hallucinations with altered mental status: -Patient is currently asymptomatic and alert and oriented 3. She denies visual hallucinations or auditory hallucinations at this time. -Workup in the ER was essentially unremarkable including CBC, CMP, head CT and chest x-ray. -Patient has no other neurological deficits. I did speak with Dr. Thao, neurologist, who suggested an MRI of the brain. If the MRI is normal, then the patient can be sent to Dr. Thao for further assessment as an outpatient. -Lipid panel is pending. -Blood cultures pending. #2. Elevated troponin: -Initial troponin was 0.09. We'll trend troponins. Patient is asymptomatic and denies chest pain or palpitations. -Patient placed on telemetry. Patient is full code. All home medications have been restarted. Disposition: 1-2 days pending improvement and workup.
[2017-08-20] MEDS ORDERED: Acetaminophen 500 MG Tab PO SCH (15:00)
[2017-08-20] MEDS ORDERED: Acetaminophen 325 MG Tab PO PRN (18:08)
[2017-08-20] MEDS ORDERED: atorvaSTATin 40 MG Tab PO SCH (21:00)
[2017-08-20] MEDS ORDERED: Losartan 50 MG Tab PO SCH (21:00)
[2017-08-20] MEDS ORDERED: Calcium Carbonate 500 MG Tab.Chew PO SCH (21:00)
[2017-08-20] MEDS ORDERED: Metoprolol Tartrate 50 MG Tab PO SCH (21:00)
[2017-08-20] MEDS ORDERED: Aspirin 325 MG Tab PO SCH (21:00)
[2017-08-21] MEDS ORDERED: BUDESONIDE INH SCH (06:00)
[2017-08-21] MEDS ORDERED: FORMOTEROL INH SCH (06:00)
[2017-08-21 06:24] LABS: CHLORIDE,CL 109 mmol/L (98-107); SODIUM,NA 142 mmol/L (136-145)
[2017-08-21] MEDS ORDERED: Magnesium Sulfate/Water 2 GM in Premix Bag 1 BAG IV ONE (07:35)
[2017-08-21] MEDS ORDERED: ALBUTEROL INH SCH (09:00)
[2017-08-21] MEDS ORDERED: Potassium Chloride 10 MEQ Tab.ER PO SCH (09:00)
[2017-08-21] MEDS ORDERED: Losartan 50 MG Tab PO SCH ×2 (09:00)
[2017-08-21] MEDS ORDERED: Multivitamins with Iron/Calcium/Folic Acid/Minerals Tab PO SCH (09:00)
[2017-08-21] MEDS ORDERED: Furosemide 20 MG Tab PO SCH ×3 (09:00)
[2017-08-21] MEDS ORDERED: ZEAXANTHIN PO SCH (09:00)
[2017-08-21] MEDS ORDERED: Metoprolol Tartrate 50 MG Tab PO SCH ×2 (09:00)
[2017-08-21] MEDS ORDERED: DICLOFENAC SODIUM TOP SCH (09:00)
[2017-08-21] MEDS ORDERED: LUTEIN PO SCH (09:00)
[2017-08-21] MEDS ORDERED: CARBOXYMETHYLCELLULOSE PO SCH (09:00)
[2017-08-21] MEDS ORDERED: Calcium Carbonate/Vitamin D3 1500 MG-400 Units Tab PO SCH (09:00)
--- NOTE | 2017-08-21 10:57 | MR ---
EXAM DATE: 08/20/17 PATIENT'S AGE: 87 Patient: JULIANA COOL Facility: [facility], [place], [place] Site . Site : [id number] Study: MRI Head W/ and W/O Cont [id number]/9/2018 8:15:24 PM Ordering Physician: Tonya Ortiz Final Report: INDICATION: 87-year-old female. Hallucinations. History of TIA. TECHNIQUE: T1 sagittal, T1 axial, FLAIR axial, T2 axial, diffusion axial, ADC map axial, susceptibility weighted axial, T1 coronal and 3 plane postcontrast T1 weighted images are acquired. 10 mL MultiHance. FINDINGS: There is a subtle small focus of restricted diffusion/dark ADC in the left [place] lyn[place]. Susceptibility sequences are degraded by artifact of unknown etiology. Ventricles and cortical sulci are moderately prominent. Patchy white matter T2 prolongation is present in the cerebral hemispheres. There is a patent cavum septum pellucidum/cavum septum vergae. Small foci of T2 prolongation are present in the brainstem and right cerebellar white matter. Cerebellar tonsils are normally situated. There is no pathologic extra-axial fluid collection. Benign mucosal thickening is present in the paranasal sinuses. Mastoid air cells are clear. Usual flow voids in the [place]. Findings of right cataract extraction. The mesial temporal lobes are unremarkable. There is no pathologic intracranial enhancement. Subtle focus of enhancement in the right [place] is suggestive of an occult vascular malformation such as capillary telangiectasia. There is no corresponding pathologic T2 signal. IMPRESSION: 1. Subtle focus of restricted diffusion in the left [place] is suggestive of recent lacunar-type ischemia/infarction. 2. Susceptibility weighted images are nondiagnostic due for technical reasons. 3. Moderate atrophy and moderate to marked microvascular ischemic disease. 4. 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 Dictated by Rajan Pineda MD @ Aug 21 2017 9:46AM (Electronic Signature) Report Signed by Proxy. [facility] C[facility]ERYolande
--- NOTE | 2017-08-22 14:24 | PCM.DCSUM1 ---
<Trav Granados - Last Filed: 08/22/17 14:20> Discharge Summary - Hospital Course Free Text/Narrative:: Admission diagnosis: #1. Altered mental status Discharge diagnosis: #1. Altered mental status, improved 87-year-old female that was admitted with altered mental status and visual hallucinations. Head CT and chest x-ray were unremarkable. CBC and BMP were unremarkable. Patient had no focal neurological deficits when presenting to the ER or throughout her admission. She had no hallucinations during admission. Initial troponin was elevated at 0.090 but the patient was asymptomatic. Troponins were trended and did trend down at the time of discharge. Urinalysis, toxicology screen, alcohol screen and lipid panel were all unremarkable. Urine and blood cultures were negative. MRI of the brain had evidence that there may have been a recent lacunar type ischemia/infarction. I did discuss the case with Dr. Thao, neurologist, and she had recommended getting an MRI of the brain. I discussed the results of the MRI with Dr. Thao and she recommended that the patient follow-up with her as an outpatient and that nothing else needed to be done as inpatient. At the time of discharge, the patient was tolerating oral intake, voiding appropriately, ambulating without assistance. - Discharge Data Discharge Date: 08/21/17 Discharge Disposition: Home, Self-Care 01 Condition: Good - Discharge Diagnosis/Problem(s) (1) Altered mental status SNOMED Code(s): 326798332 ICD Code: R41.82 - ALTERED MENTAL STATUS, UNSPECIFIED Status: Acute (2) History of TIA (transient ischemic attack) SNOMED Code(s): 981951840 ICD Code: Z86.73 - PRSNL HX OF TIA (TIA), AND CEREB INFRC W/O RESID DEFICITS Status: Acute - Patient Summary/Data Consults: Consultations 08/20/17 14:12 PT Evaluation and Treatment [CONS] Routine - Patient Instructions Diet: Heart Healthy Diet Activity: As Tolerated Driving: Do Not Drive Showering/Bathing: May Shower Notify Provider of: Fever, Increased Pain, Nausea and/or Vomiting - Discharge Plan Home Medications: Home Meds Acetaminophen 500 mg PO DAILY PRN 06/25/17 [History] Aspirin 325 mg PO BEDTIME 06/25/17 [History] Budesonide/Formoterol [Symbicort 80-4.5 MCG] 6.9 gm INH BID 06/25/17 [History] Calcium Carbonate 500 mg PO BID 06/25/17 [History] Carboxymethylcellulose [Methocel E 4 M] 1 gm PO DAILY 06/25/17 [History] Furosemide 20 mg PO DAILY 06/25/17 [History] Losartan [Cozaar] 50 mg PO BID 06/25/17 [History] Lutein/Zeaxanthin [Lutein-Zeaxanthin 25-5 mg Sfgl] 1 cap PO DAILY 06/25/17 [ History] Metoprolol Tartrate 50 mg PO BID 06/25/17 [History] Multivitamin [Multivitamins] 1 tab PO DAILY 06/25/17 [History] Potassium Chloride 10 meq PO DAILY 06/25/17 [History] atorvaSTATin [Lipitor] 40 mg PO BEDTIME 06/25/17 [History] Patient's Own Medication [Ptom] 1 each TOP DAILY each 08/21/17 [Rx] Patient Handouts: Confusion Referrals: [facility] [Outside] Maricruz Thao MD [Physician] - 10/24/17 10:00 am Bradley Palma MD [Physician] - 08/28/17 10:15 am - Discharge Summary/Plan Comment DC Time >30 min.: No Discharge Summary/Plan Comment: Admission diagnosis: #1. Altered mental status Discharge diagnosis: #1. Altered mental status, improved 87-year-old female that was admitted with altered mental status and visual hallucinations. Head CT and chest x-ray were unremarkable. CBC and BMP were unremarkable. Patient had no focal neurological deficits when presenting to the ER or throughout her admission. She had no hallucinations during admission. Initial troponin was elevated at 0.090 but the patient was asymptomatic. Troponins were trended and did trend down at the time of discharge. Urinalysis, toxicology screen, alcohol screen and lipid panel were all unremarkable. Urine and blood cultures were negative. MRI of the brain had evidence that there may have been a recent lacunar type ischemia/infarction. I did discuss the case with Dr. Thao, neurologist, and she had recommended getting an MRI of the brain. I discussed the results of the MRI with Dr. Thao and she recommended that the patient follow-up with her as an outpatient and that nothing else needed to be done as inpatient. At the time of discharge, the patient was tolerating oral intake, voiding appropriately, ambulating without assistance. Discharge plan: #1. Patient will follow up with her PCP Dr. Palma #2. An appointment has been set up with Dr. Thao, neurologist. #3. All medications were restarted. Patient is currently taking a daily aspirin. - Patient Data Vitals - Most Recent: Last Vital Signs Temp 97.7 F 08/21/17 08:00 Pulse 72 08/21/17 09:19 Resp 16 08/21/17 08:00 BP 136/73 08/21/17 09:19 Pulse Ox 94 L 08/21/17 08:00 Weight - Most Recent: 73.5 kg AUGUSTO Results - Last 24 hrs: Microbiology 08/20/17 12:06 Aerobic Blood Culture - Preliminary Blood - Venous - Lab Draw NO GROWTH AFTER 2 DAYS Anaerobic Blood Culture - Final 08/20/17 11:55 Aerobic Blood Culture - Preliminary Blood - Venous NO GROWTH AFTER 2 DAYS Anaerobic Blood Culture - Preliminary NO GROWTH AFTER 2 DAYS 08/20/17 11:55 Urine Culture - Final Urine, Catheterized No Growth Med Orders - Current: Current Medications Discontinued Medications Acetaminophen (Tylenol Extra Strength) 500 mg PO DAILY [facility] Last Admin: 08/20/17 16:33 Dose: Not Given Acetaminophen (Tylenol) 650 mg PO Q4H PRN PRN Reason: Pain Last Admin: 08/21/17 08:44 Dose: 650 mg Albuterol/Ipratropium (Duoneb 3.0-0.5 Mg/3 Ml) 3 ml NEB Q4HRRT PRN PRN Reason: Shortness Of Breath/wheezing Aspirin (Aspirin) 325 mg PO BEDTIME [facility] Last Admin: 08/20/17 20:44 Dose: 325 mg Atorvastatin Calcium (Lipitor) 40 mg PO BEDTIME [facility] Last Admin: 08/20/17 20:45 Dose: 40 mg Calcium Carbonate/Glycine (Tums) 500 mg PO BID CARLYN Furosemide (Lasix) 20 mg PO DAILY CARLYN Furosemide (Lasix) 10 mg PO DAILY CARLYN Furosemide (Lasix) 20 mg PO DAILY [facility] Last Admin: 08/21/17 09:18 Dose: 20 mg Sodium Chloride (Normal Saline) 500 mls @ 999 mls/hr IV STAT [facility] Last Admin: 08/20/17 11:58 Dose: 999 mls/hr Magnesium Sulfate 2 gm/ Premix 50 mls @ 25 mls/hr IV ONETIME ONE Stop: 08/21/17 09:34 Last Admin: 08/21/17 08:38 Dose: 25 mls/hr Ibuprofen (Motrin) 800 mg PO Q6H PRN PRN Reason: Pain (mild 1-3) Losartan Potassium (Cozaar) 50 mg PO DAILY [facility] Losartan Potassium (Cozaar) 50 mg PO BID [facility] Last Admin: 08/20/17 20:44 Dose: 50 mg Losartan Potassium (Cozaar) 50 mg PO BID [facility] Last Admin: 08/21/17 09:19 Dose: 50 mg Metoprolol Tartrate (Lopressor) 50 mg PO DAILY [facility] Metoprolol Tartrate (Lopressor) 50 mg PO BID [facility] Last Admin: 08/20/17 20:43 Dose: 50 mg Metoprolol Tartrate (Lopressor) 50 mg PO BID [facility] Last Admin: 08/21/17 09:19 Dose: 50 mg Multivitamins/Minerals (Thera M Plus) 1 tab PO DAILY [facility] Last Admin: 08/21/17 08:38 Dose: 1 tab Non-Formulary Medication (Albuterol) 200 puff INH DAILY [facility] Non-Formulary Medication (Budesonide/[facility]oter[facility]) [facility] Ondansetron HCl (Zofran Odt) 4 mg PO Q4H PRN PRN Reason: nausea, able to take PO Carboxymethylcellulo se [Methocel E 4 M] 1 Gm 1 each PO DAILY [facility] Last Admin: 08/21/17 08:37 Dose: Not Given Diclofenac Sodium [ Diclofenac Sodium] 1 Unit 1 each TOP DAILY [facility] Last Admin: 08/21/17 08:36 Dose: Not Given Lutein/Zeaxanthin [ Lutein-Zeaxanthin 25 -5 Mg Sfgl] 1 Cap 1 each PO DAILY [facility] Last Admin: 08/21/17 08:38 Dose: Not Given Potassium Chloride (Klor-Con 10) 10 meq PO DAILY [facility] Last Admin: 08/21/17 08:38 Dose: 10 meq Sodium Chloride (Saline Flush) 10 ml FLUSH ASDIRECTED PRN PRN Reason: Keep Vein Open Sodium Chloride (Saline Flush) 2.5 ml FLUSH ASDIRECTED PRN PRN Reason: Keep Vein Open <Angel Castaneda - Last Filed: 08/26/17 13:15> Discharge Summary - Patient Summary/Data Consults: Consultations 08/20/17 14:12 PT Evaluation and Treatment [CONS] Routine - Patient Data Vitals - Most Recent: Last Vital Signs Temp 36.5 C 08/21/17 08:00 Pulse 72 08/21/17 09:19 Resp 16 08/21/17 08:00 BP 136/73 08/21/17 09:19 Pulse Ox 94 L 08/21/17 08:00 [place]UG[place]O Results - Last 24 hrs: Microbiology 08/20/17 12:06 Aerobic Blood Culture - Final Blood - Venous - Lab Draw NO GROWTH AFTER 5 DAYS Anaerobic Blood Culture - Final 08/20/17 11:55 Aerobic Blood Culture - Final Blood - Venous NO GROWTH AFTER 5 DAYS Anaerobic Blood Culture - Final NO GROWTH AFTER 5 DAYS Med Orders - Current: Current Medications Discontinued Medications Acetaminophen (Tylenol Extra Strength) 500 mg PO DAILY [facility] Last Admin: 08/20/17 16:33 Dose: Not Given Acetaminophen (Tylenol) 650 mg PO Q4H PRN PRN Reason: Pain Last Admin: 08/21/17 08:44 Dose: 650 mg Albuterol/Ipratropium (Duoneb 3.0-0.5 Mg/3 Ml) 3 ml NEB Q4HRRT PRN PRN Reason: Shortness Of Breath/wheezing Aspirin (Aspirin) 325 mg PO BEDTIME [facility] Last Admin: 08/20/17 20:44 Dose: 325 mg Atorvastatin Calcium (Lipitor) 40 mg PO BEDTIME [facility] Last Admin: 08/20/17 20:45 Dose: 40 mg Calcium Carbonate/Glycine (Tums) 500 mg PO BID [facility] Furosemide (Lasix) 20 mg PO DAILY [facility] Furosemide (Lasix) 10 mg PO DAILY [facility] Furosemide (Lasix) 20 mg PO DAILY [facility] Last Admin: 08/21/17 09:18 Dose: 20 mg Sodium Chloride (Normal Saline) 500 mls @ 999 mls/hr IV STAT [facility] Last Admin: 08/20/17 11:58 Dose: 999 mls/hr Magnesium Sulfate 2 gm/ Premix 50 mls @ 25 mls/hr IV ONETIME ONE Stop: 08/21/17 09:34 Last Admin: 08/21/17 08:38 Dose: 25 mls/hr Ibuprofen (Motrin) 800 mg PO Q6H PRN PRN Reason: Pain (mild 1-3) Losartan Potassium (Cozaar) 50 mg PO DAILY [facility] Losartan Potassium (Cozaar) 50 mg PO BID [facility] Last Admin: 08/20/17 20:44 Dose: 50 mg Losartan Potassium (Cozaar) 50 mg PO BID [facility] Last Admin: 08/21/17 09:19 Dose: 50 mg Metoprolol Tartrate (Lopressor) 50 mg PO DAILY [facility] Metoprolol Tartrate (Lopressor) 50 mg PO BID [facility] Last Admin: 08/20/17 20:43 Dose: 50 mg Metoprolol Tartrate (Lopressor) 50 mg PO BID [facility] Last Admin: 08/21/17 09:19 Dose: 50 mg Multivitamins/Minerals (Thera M Plus) 1 tab PO DAILY [facility] Last Admin: 08/21/17 08:38 Dose: 1 tab Non-Formulary Medication (Albuterol) 200 puff INH DAILY [facility] Non-Formulary Medication (Budesonide/[facility]oterol) [facility] Ondansetron HCl (Zofran Odt) 4 mg PO Q4H PRN PRN Reason: nausea, able to take PO Carboxymethylcellulo se [Methocel E 4 M] 1 Gm 1 each PO DAILY [facility] Last Admin: 08/21/17 08:37 Dose: Not Given Diclofenac Sodium [ Diclofenac Sodium] 1 Unit 1 each TOP DAILY [facility] Last Admin: 08/21/17 08:36 Dose: Not Given Lutein/Zeaxanthin [ Lutein-Zeaxanthin 25 -5 Mg Sfgl] 1 Cap 1 each PO DAILY [facility] Last Admin: 08/21/17 08:38 Dose: Not Given Potassium Chloride (Klor-Con 10) 10 meq PO DAILY [facility] Last Admin: 08/21/17 08:38 Dose: 10 meq Sodium Chloride (Saline Flush) 10 ml FLUSH ASDIRECTED PRN PRN Reason: Keep Vein Open Sodium Chloride (Saline Flush) 2.5 ml FLUSH ASDIRECTED PRN PRN Reason: Keep Vein Open - Free Text/Narrative Note: I have examined the patient. I have discussed findings and treatment plan with the resident. I agree with the assessment and plan outlined in the following resident's note.
== END 2017-08-21 12:30 | disposition home or self-care (01) ==
LOC: MW.ED 11:18 → MW.MS 13:35
PROVIDERS: ADMIT Internal Medicine; ATTEND Internal Medicine
DX: R41.82 Altered mental status, unspecified (principal); E78.00 Pure hypercholesterolemia, unspecified; Z86.73 Personal history of transient ischemic attack (TIA), and cerebral infarction without residual deficits; Z79.82 Long term (current) use of aspirin; Z79.899 Other long term (current) drug therapy; Z88.8 Allergy status to other drugs, medicaments and biological substances; I48.91 Unspecified atrial fibrillation; Z87.891 Personal history of nicotine dependence
CPT/HCPCS: 36415; 70450; 70553; 71045; 80048; 80053; 80061; 80305; 81001; 82140; 83735; 84484; 85025; 85610; 87040; 87086; 93005; 96360; 97161; 99285; A9270; G0480; J3475; J7040; 96361; 96374; G0378

== ENCOUNTER 2018-01-31 13:27 | Emergency (ER) | payer MEDICARE, OTHER ==
--- NOTE | 2018-01-31 13:34 | EDM.PDOC ---
ED HPI GENERAL MEDICAL PROBLEM - General Chief Complaint: Chest Pain Stated Complaint: CHEST PAINS Time Seen by Provider: 01/31/18 13:34 Source of Information: Reports: Patient - History of Present Illness INITIAL COMMENTS - FREE TEXT/NARRATIVE: HISTORY AND PHYSICAL: History of present illness: [Patient presents with reproducible chest wall pain that is been worsening over the last month, she had a previous admission in December with similar symptoms she has known rotator cuff injury and is scheduled for surgery pending a colonoscopy on Sunday with Dr. Delaney due to guaiac positive stools. She follows with cardiology was cleared her for surgery recently she has an EKG from today is unchanged from previous Patient seemed more tired than usual today she woke up at 8 AM and was up and around the house for a while and went back to bed waking up at noon On her admission she did have a urinary tract infection throughout Escherichia coli were awaiting for her urine to see if she has repeat infection that may contribute to fatigue, she has chronically elevated troponins she is not experiencing any shortness of breath or diaphoresis no new symptomology outside of fatigue no radiation to neck or jaw or arm has chronic pain, I can increased pain that she is complaining of with movement of her left arm and palpation over anterior chest she rates 4 out of 10 ] Review of systems: As per history of present illness and below otherwise all systems reviewed and negative. Past medical history: As per history of present illness and as reviewed below otherwise noncontributory. Surgical history: As per history of present illness and as reviewed below otherwise noncontributory. Social history: No reported history of drug or alcohol abuse. Family history: As per history of present illness and as reviewed below otherwise noncontributory. Physical exam: HEENT: Atraumatic, normocephalic, pupils reactive, negative for conjunctival pallor or scleral icterus, mucous membranes moist, throat clear, neck supple, nontender, trachea midline. Lungs: Clear to auscultation, breath sounds equal bilaterally, chest nontender. Heart: S1S2, regular, negative for clicks, rubs, or JVD. Abdomen: Soft, nondistended, nontender. Negative for masses or hepatosplenomegaly. Negative for costovertebral tenderness. Pelvis: Stable nontender. Genitourinary: Deferred. Rectal: Deferred. Extremities: Atraumatic, negative for cords or calf pain. Neurovascular unremarkable. Neuro: Awake, alert, oriented. Cranial nerves II through XII unremarkable. Cerebellum unremarkable. Motor and sensory unremarkable throughout. Exam nonfocal. Diagnostics: [CBC CMP troponin urine culture EKG Chest 1 view ] Therapeutics: []Macrobid 100 a twice a day #14 no refill Patient offered observation admission and declined/refused as were on diversion and require transfer Impression: UTI Fatigue secondary to above [ chronic troponin elevation Guaiac positive stools ] rotator cuff injury on the left chronic history baseline Definitive disposition and diagnosis as appropriate pending reevaluation and review of above. Chest Pain Score (Numeric/FACES): 10 - Related Data Allergies Allergy/AdvReac Type Severity Reaction Status Date / Time candesartan [From Atacand] Allergy Hallucinati Verified 01/31/18 13:37 ons enalaprilat [From Vasotec] Allergy Hallucinati Verified 01/31/18 13:37 ons lisinopril Allergy Hallucinati Verified 01/31/18 13:37 ons morphine Allergy Hallucinati Verified 01/31/18 13:37 ons propoxyphene Allergy Hallucinati Verified 01/31/18 13:37 [From Darvocet-N] ons tramadol Allergy Hallucinati Verified 01/31/18 13:37 ons Home Meds: Home Meds Acetaminophen 500 mg PO DAILY PRN 06/25/17 [History] Aspirin 325 mg PO BEDTIME 06/25/17 [History] Budesonide/Formoterol [Symbicort 80-4.5 MCG] 6.9 gm INH BID 06/25/17 [History] Calcium Carbonate 500 mg PO BID 06/25/17 [History] Furosemide 20 mg PO DAILY 06/25/17 [History] Losartan [Cozaar] 50 mg PO BID 06/25/17 [History] Lutein/Zeaxanthin [Lutein-Zeaxanthin 25-5 mg Sfgl] 1 cap PO DAILY 06/25/17 [ History] Metoprolol Tartrate 50 mg PO BEDTIME 06/25/17 [History] Multivitamin [Multivitamins] 1 tab PO DAILY 06/25/17 [History] Potassium Chloride 10 meq PO DAILY 06/25/17 [History] atorvaSTATin [Lipitor] 40 mg PO BEDTIME 06/25/17 [History] Diclofenac Sodium [Voltaren] 100 gm TP ASDIRECTED PRN 12/18/17 [History] Metoprolol Tartrate 50 mg PO DAILY 12/18/17 [History] Past Medical History HEENT History: Reports: Other (See Below) Other HEENT History: nasal polups Cardiovascular History: Reports: Afib, High Cholesterol, Other (See Below) Other Cardiovascular History: Enlagred heart Respiratory History: Reports: None Gastrointestinal History: Reports: None Genitourinary History: Reports: None GLASS VIAL FILLER History: Reports: None Musculoskeletal History: Reports: None Neurological History: Reports: TIA, Other (See Below) Other Neuro History: Brain bleed Psychiatric History: Reports: None Endocrine/Metabolic History: Reports: None Hematologic History: Reports: None Immunologic History: Reports: None Oncologic (Cancer) History: Reports: None Dermatologic History: Reports: None - Infectious Disease History Infectious Disease History: Reports: None - Past Surgical History Head Surgeries/Procedures: Reports: None HEENT Surgical History: Reports: None Cardiovascular Surgical History: Reports: None Respiratory Surgical History: Reports: None GI Surgical History: Reports: None Female Surgical History: Reports: None Endocrine Surgical History: Reports: None Neurological Surgical History: Reports: None Musculoskeletal Surgical History: Reports: Hip Replacement, Joint Replacement, Knee Replacement, Shoulder Replacement Oncologic Surgical History: Reports: None Dermatological Surgical History: Reports: None Social & Family History - Family History Family Medical History: Noncontributory - Caffeine Use Caffeine Use: Reports: Coffee Caffeine Use Comment: 1 cup ED ROS GENERAL - Review of Systems Review Of Systems: See Below ED EXAM, GENERAL - Physical Exam Exam: See Below Course - Vital Signs Last Recorded V/S: Last Vital Signs Temp 97.6 F 01/31/18 13:35 Pulse 60 01/31/18 14:34 Resp 15 01/31/18 14:34 BP 152/61 H 01/31/18 14:34 Pulse Ox 98 01/31/18 14:34 - Orders/Labs/Meds Orders: Active Orders 24 hr Category Date Time Status EKG Documentation Completion [RC] STAT Care 01/31/18 13:35 Active CULTURE URINE [RM] Stat Lab 01/31/18 13:24 Received Sodium Chloride 0.9% [Normal Saline] 1,000 ml Med 01/31/18 13:45 Active IV STAT Medication Orders Sodium Chloride (Normal Saline) 1,000 mls @ 125 mls/hr IV STAT CARLYN Last Admin: 01/31/18 13:49 Dose: 125 mls/hr Labs: Laboratory Tests 01/31/18 01/31/18 01/31/18 Range/Units 13:26 13:33 13:33 WBC 4.47 (4.0-11.0) K/uL RBC 3.82 L (4.30-5.90) M/uL Hgb 10.8 L (12.0-16.0) g/dL Hct 33.4 L (36.0-46.0) % MCV 87.4 (80.0-98.0) fL MCH 28.3 (27.0-32.0) pg MCHC 32.3 (31.0-37.0) g/dL RDW Std Deviation 51.1 (28.0-62.0) fl RDW Coeff of Rosalinda 16 H (11.0-15.0) % Plt Count 223 (150-400) K/uL MPV 8.90 (7.40-12.00) fL Neut % (Auto) 51.5 (48.0-80.0) % Lymph % (Auto) 35.6 (16.0-40.0) % [place] % (Auto) 6.0 (0.0-15.0) % Eos % (Auto) 6.0 (0.0-7.0) % Baso % (Auto) 0.9 (0.0-1.5) % Neut # (Auto) 2.3 (1.4-5.7) K/uL Lymph # (Auto) 1.6 (0.6-2.4) K/uL [place] # (Auto) 0.3 (0.0-0.8) K/uL Eos # (Auto) 0.3 (0.0-0.7) K/uL Baso # (Auto) 0.0 (0.0-0.1) K/uL Nucleated RBC % 0.0 /100WBC Nucleated RBCs # 0 K/uL Sodium 140 (136-145) mmol/L Potassium 4.2 (3.5-5.1) mmol/L Chloride 105 (98-107) mmol/L Carbon Dioxide 27.6 (21.0-32.0) mmol/L BUN 11 (7.0-18.0) mg/dL Creatinine 1.0 (0.6-1.0) mg/dL Est Cr Clr Drug Dosing 27.93 mL/min Estimated GFR (MDRD) 52.3 ml/min Glucose 102 (74-106) mg/dL Calcium 9.6 (8.5-10.1) mg/dL Total Bilirubin 0.7 (0.2-1.0) mg/dL AST 18 (15-37) IU/L ALT 14 (14-63) IU/L Alkaline Phosphatase 82 (46-116) U/L Troponin I 0.091 H* (0.000-0.056) ng/mL Total Protein 6.9 (6.4-8.2) g/dL Albumin 3.9 (3.4-5.0) g/dL Globulin 3.0 (2.0-3.5) g/dL Albumin/Globulin Ratio 1.3 (1.3-2.8) Urine Color YELLOW Urine Appearance SLT CLOUDY Urine pH 7.5 (5.0-8.0) Ur Specific [place] 1.020 (1.001-1.035) Urine Protein NEGATIVE (NEGATIVE) mg/dL Urine Glucose (UA) NEGATIVE (NEGATIVE) mg/dL Urine Ketones NEGATIVE (NEGATIVE) mg/dL Urine Occult Blood TRACE-INTACT (NEGATIVE) Urine Nitrite POSITIVE H (NEGATIVE) Urine Bilirubin NEGATIVE (NEGATIVE) Urine Urobilinogen 0.2 (<2.0) EU/dL Ur Leukocyte Esterase TRACE (NEGATIVE) Urine RBC 0-2 (0-2/HPF) Urine WBC 4-10 (0-5/HPF) Ur Epithelial Cells OCCASIONAL (NONE-FEW) Urine Bacteria 2+ H (NEGATIVE) Urine Mucus FEW (NONE-MOD) Meds: Medications Generic Name Dose Route Start Last Admin Trade Name Freq PRN Reason Stop Dose Admin Sodium Chloride 1,000 mls @ 125 mls/hr 01/31/18 13:45 01/31/18 13:49 Normal Saline IV 125 mls/hr STAT CARLYN Administration Discontinued Medications Generic Name Dose Route Start Last Admin Trade Name Freq PRN Reason Stop Dose Admin Aspirin 324 mg 01/31/18 13:35 01/31/18 13:49 Aspirin PO 01/31/18 13:36 324 mg ONETIME ONE Administration Departure - Departure Time of Disposition: 16:04 Disposition: Home, Self-Care 01 Condition: Good Clinical Impression: UTI (urinary tract infection) Qualifiers: Urinary tract infection type: site unspecified Hematuria presence: without hematuria Qualified Code(s): N39.0 - Urinary tract infection, site not specified - Discharge Information Referrals: PCP,None [Primary Care Provider] - Forms: ED Department Discharge Additional Instructions: The following information is given to patients seen in the emergency department who are being discharged to home. This information is to outline your options for follow-up care. We provide all patients seen in our emergency department with a follow-up referral. The need for follow-up, as well as the timing and circumstances, are variable depending upon the specifics of your emergency department visit. If you don't have a primary care physician on staff, we will provide you with a referral. We always advise you to contact your personal physician following an emergency department visit to inform them of the circumstance of the visit and for follow-up with them and/or the need for any referrals to a consulting specialist. The emergency department will also refer you to a specialist when appropriate. This referral assures that you have the opportunity for follow-up care with a specialist. All of these measure are taken in an effort to provide you with optimal care, which includes your follow-up. Under all circumstances we always encourage you to contact your private physician who remains a resource for coordinating your care. When calling for follow-up care, please make the office aware that this follow-up is from your recent emergency room visit. If for any reason you are refused follow-up, please contact the [facility] emergency department at and asked to speak to the emergency department charge nurse. - My Orders Last 24 Hours: My Active Orders 01/31/18 13:24 CULTURE URINE [RM] Stat 01/31/18 13:35 EKG Documentation Completion [RC] STAT 01/31/18 13:45 Sodium Chloride 0.9% [Normal Saline] 1,000 ml IV STAT - Assessment/Plan Last 24 Hours: My Active Orders 01/31/18 13:24 CULTURE URINE [RM] Stat 01/31/18 13:35 EKG Documentation Completion [RC] STAT 01/31/18 13:45 Sodium Chloride 0.9% [Normal Saline] 1,000 ml IV STAT
[2018-01-31] MEDS ORDERED: Aspirin 81 MG Tab.Chew PO ONE (13:35)
[2018-01-31] MEDS ORDERED: Sodium Chloride 0.9% 1,000 ML IV SCH (13:45)
--- NOTE | 2018-01-31 14:17 | CR ---
EXAMINATION: Portable chest radiograph. HISTORY: Pain. FINDINGS: The trachea is midline. The heart is enlarged. Aortic calcifications are noted. The cardiomediastinal silhouette is within normal limits. No pulmonary infiltrates, effusions or pneumothorax. Osseous structures appear osteopenic. Right glenohumeral replacement hardware noted. Advanced degener ative changes within the left shoulder. IMPRESSION: Cardiomegaly without an acute cardiopulmonary finding.
== END 2018-01-31 16:41 | disposition home or self-care (01) ==
LOC: MW.ED 13:27
DX: N39.0 Urinary tract infection, site not specified (principal); I48.91 Unspecified atrial fibrillation; E78.00 Pure hypercholesterolemia, unspecified; Z88.8 Allergy status to other drugs, medicaments and biological substances; Z88.5 Allergy status to narcotic agent; Z79.899 Other long term (current) drug therapy
CPT/HCPCS: 36415; 71045; 80053; 81001; 84484; 85025; 87086; 87088; 87186; 93005; 99285; A9270; J7040

== ENCOUNTER 2018-02-09 13:08 | Emergency (ER) | payer MEDICARE ==
--- NOTE | 2018-02-09 13:12 | EDM.PDOC ---
ED HPI GENERAL MEDICAL PROBLEM - General Stated Complaint: AMB Time Seen by Provider: 02/09/18 13:12 Source of Information: Reports: Patient - History of Present Illness INITIAL COMMENTS - FREE TEXT/NARRATIVE: HISTORY AND PHYSICAL: History of present illness: [Patient was in her home generally walking with the assistance of a walker, she is scheduled for shoulder replacement upcoming, 1 step in her house stepping down from the kitchen Today she did fall with her walker down that step landing on the left shoulder which is to be replaced exact mechanism or what all absorbed impact fall is uncertain she is on Coumadin No fever nausea vomiting chills sweats See my previous note from last week for other recent details ] Review of systems: As per history of present illness and below otherwise all systems reviewed and negative. Past medical history: As per history of present illness and as reviewed below otherwise noncontributory. Surgical history: As per history of present illness and as reviewed below otherwise noncontributory. Social history: No reported history of drug or alcohol abuse. Family history: As per history of present illness and as reviewed below otherwise noncontributory. Physical exam: HEENT: Atraumatic, normocephalic, pupils reactive, negative for conjunctival pallor or scleral icterus, mucous membranes moist, throat clear, neck supple, nontender, trachea midline. Lungs: Clear to auscultation, breath sounds equal bilaterally, chest nontender. Heart: S1S2, regular, negative for clicks, rubs, or JVD. Abdomen: Soft, nondistended, nontender. Negative for masses or hepatosplenomegaly. Negative for costovertebral tenderness. Pelvis: Stable nontender. Genitourinary: Deferred. Rectal: Deferred. Extremities: Atraumatic, negative for cords or calf pain. Neurovascular unremarkable. Neuro: Awake, alert, oriented. Cranial nerves II through XII unremarkable. Cerebellum unremarkable. Motor and sensory unremarkable throughout. Exam nonfocal. DiagnostEBC CMP INR EKG Chest 1 view Pelvis 1v Left shoulder complete Cervical spine CT no contrast Head CT no contrast Therapeutics: Tylenol #3 shoulder immobilizer Impression: [] nondisplaced fracture of the left greater tuberosity of humerus Definitive disposition and diagnosis as appropriate pending reevaluation and review of above. Left Shoulder Pain Score (Numeric/FACES): 10 - Related Data Allergies Allergy/AdvReac Type Severity Reaction Status Date / Time candesartan [From Atacand] Allergy Hallucinati Verified 02/09/18 13:27 ons enalaprilat [From Vasotec] Allergy Hallucinati Verified 02/09/18 13:27 ons lisinopril Allergy Hallucinati Verified 02/09/18 13:27 ons morphine Allergy Hallucinati Verified 02/09/18 13:27 ons propoxyphene Allergy Hallucinati Verified 02/09/18 13:27 [From Darvocet-N] ons tramadol Allergy Hallucinati Verified 02/09/18 13:27 ons Home Meds: Home Meds Acetaminophen 500 mg PO DAILY PRN 06/25/17 [History] Aspirin 325 mg PO BEDTIME 06/25/17 [History] Budesonide/Formoterol [Symbicort 80-4.5 MCG] 6.9 gm INH BID 06/25/17 [History] Calcium Carbonate 500 mg PO BID 06/25/17 [History] Furosemide 20 mg PO DAILY 06/25/17 [History] Losartan [Cozaar] 50 mg PO BID 06/25/17 [History] Lutein/Zeaxanthin [Lutein-Zeaxanthin 25-5 mg Sfgl] 1 cap PO DAILY 06/25/17 [ History] Metoprolol Tartrate 50 mg PO BEDTIME 06/25/17 [History] Multivitamin [Multivitamins] 1 tab PO DAILY 06/25/17 [History] Potassium Chloride 10 meq PO DAILY 06/25/17 [History] atorvaSTATin [Lipitor] 40 mg PO BEDTIME 06/25/17 [History] Metoprolol Tartrate 50 mg PO DAILY 12/18/17 [History] Past Medical History HEENT History: Reports: Other (See Below) Other HEENT History: nasal polups Cardiovascular History: Reports: Afib, High Cholesterol, Other (See Below) Other Cardiovascular History: Enlagred heart Respiratory History: Reports: None Gastrointestinal History: Reports: None Genitourinary History: Reports: None DIRECTOR TRANSITION History: Reports: None Musculoskeletal History: Reports: None Neurological History: Reports: TIA, Other (See Below) Other Neuro History: Brain bleed Psychiatric History: Reports: None Endocrine/Metabolic History: Reports: None Hematologic History: Reports: None Immunologic History: Reports: None Oncologic (Cancer) History: Reports: None Dermatologic History: Reports: None - Infectious Disease History Infectious Disease History: Reports: None - Past Surgical History Head Surgeries/Procedures: Reports: None HEENT Surgical History: Reports: None Cardiovascular Surgical History: Reports: None Respiratory Surgical History: Reports: None GI Surgical History: Reports: None Female Surgical History: Reports: None Endocrine Surgical History: Reports: None Neurological Surgical History: Reports: None Musculoskeletal Surgical History: Reports: Hip Replacement, Joint Replacement, Knee Replacement, Shoulder Replacement Oncologic Surgical History: Reports: None Dermatological Surgical History: Reports: None Social & Family History - Family History Family Medical History: Noncontributory - Caffeine Use Caffeine Use: Reports: Coffee Caffeine Use Comment: 1 cup ED ROS GENERAL - Review of Systems Review Of Systems: See Below ED EXAM, GENERAL - Physical Exam Exam: See Below Course - Vital Signs Last Recorded V/S: Last Vital Signs Temp 98.3 F 02/09/18 13:20 Pulse 94 02/09/18 13:20 Resp 22 H 02/09/18 13:20 BP 164/99 H 02/09/18 13:20 Pulse Ox 90 L 02/09/18 13:20 - Orders/Labs/Meds Orders: Active Orders 24 hr Category Date Time Status EKG Documentation Completion [RC] STAT Care 02/09/18 13:22 Active Cervical Spine wo Cont [CT] Stat Exams 02/09/18 13:15 Taken Chest 1V Frontal [CR] Stat Exams 02/09/18 13:09 Taken Head wo Cont [CT] Stat Exams 02/09/18 13:15 Taken Pelvis 1V or 2V [CR] Stat Exams 02/09/18 13:09 Taken Shoulder Comp Lt [CR] Stat Exams 02/09/18 13:10 Taken UA W/MICROSCOPIC [URIN] Stat Lab 02/09/18 13:09 Ordered Labs: Laboratory Tests 02/09/18 02/09/18 02/09/18 Range/Units 13:31 13:31 13:31 WBC 4.31 (4.0-11.0) K/uL RBC 3.69 L (4.30-5.90) M/uL Hgb 10.1 L (12.0-16.0) g/dL Hct 32.6 L (36.0-46.0) % MCV 88.3 (80.0-98.0) fL MCH 27.4 (27.0-32.0) pg MCHC 31.0 (31.0-37.0) g/dL RDW Std Deviation 50.4 (28.0-62.0) fl RDW Coeff of Rosalinda 16 H (11.0-15.0) % Plt Count 189 (150-400) K/uL MPV 8.50 (7.40-12.00) fL Neut % (Auto) 66.1 (48.0-80.0) % Lymph % (Auto) 21.1 (16.0-40.0) % Weber % (Auto) 8.4 (0.0-15.0) % Eos % (Auto) 3.5 (0.0-7.0) % Baso % (Auto) 0.9 (0.0-1.5) % Neut # (Auto) 2.9 (1.4-5.7) K/uL Lymph # (Auto) 0.9 (0.6-2.4) K/uL Weber # (Auto) 0.4 (0.0-0.8) K/uL Eos # (Auto) 0.2 (0.0-0.7) K/uL Baso # (Auto) 0.0 (0.0-0.1) K/uL Nucleated RBC % 0.0 /100WBC Nucleated RBCs # 0 K/uL INR 1.13 Sodium 139 (136-145) mmol/L Potassium 4.5 (3.5-5.1) mmol/L Chloride 105 (98-107) mmol/L Carbon Dioxide 28.3 (21.0-32.0) mmol/L BUN 12 (7.0-18.0) mg/dL Creatinine 0.9 (0.6-1.0) mg/dL Est Cr Clr Drug Dosing 35.74 mL/min Estimated GFR (MDRD) 59.1 ml/min Glucose 109 H (74-106) mg/dL Calcium 9.4 (8.5-10.1) mg/dL Total Bilirubin 0.6 (0.2-1.0) mg/dL AST 14 L (15-37) IU/L ALT 12 L (14-63) IU/L Alkaline Phosphatase 79 (46-116) U/L Total Protein 6.7 (6.4-8.2) g/dL Albumin 3.8 (3.4-5.0) g/dL Globulin 2.9 (2.0-3.5) g/dL Albumin/Globulin Ratio 1.3 (1.3-2.8) Departure - Departure Time of Disposition: 14:59 Disposition: Home, Self-Care 01 Condition: Good Clinical Impression: Fracture of greater tuberosity of humerus Clinical Impression: (Ruled Out): Fracture of greater trochanter - Discharge Information Referrals: PCP,None [Primary Care Provider] - Additional Instructions: The following information is given to patients seen in the emergency department who are being discharged to home. This information is to outline your options for follow-up care. We provide all patients seen in our emergency department with a follow-up referral. The need for follow-up, as well as the timing and circumstances, are variable depending upon the specifics of your emergency department visit. If you don't have a primary care physician on staff, we will provide you with a referral. We always advise you to contact your personal physician following an emergency department visit to inform them of the circumstance of the visit and for follow-up with them and/or the need for any referrals to a consulting specialist. The emergency department will also refer you to a specialist when appropriate. This referral assures that you have the opportunity for follow-up care with a specialist. All of these measure are taken in an effort to provide you with optimal care, which includes your follow-up. Under all circumstances we always encourage you to contact your private physician who remains a resource for coordinating your care. When calling for follow-up care, please make the office aware that this follow-up is from your recent emergency room visit. If for any reason you are refused follow-up, please contact the [facility] emergency department at and asked to speak to the emergency department charge nurse. - My Orders Last 24 Hours: My Active Orders 02/09/18 13:09 Chest 1V Frontal [CR] Stat Pelvis 1V or 2V [CR] Stat UA W/MICROSCOPIC [URIN] Stat 02/09/18 13:10 Shoulder Comp Lt [CR] Stat 02/09/18 13:15 Cervical Spine wo Cont [CT] Stat Head wo Cont [CT] Stat 02/09/18 13:22 EKG Documentation Completion [RC] STAT - Assessment/Plan Last 24 Hours: My Active Orders 02/09/18 13:09 Chest 1V Frontal [CR] Stat Pelvis 1V or 2V [CR] Stat UA W/MICROSCOPIC [URIN] Stat 02/09/18 13:10 Shoulder Comp Lt [CR] Stat 02/09/18 13:15 Cervical Spine wo Cont [CT] Stat Head wo Cont [CT] Stat 02/09/18 13:22 EKG Documentation Completion [RC] STAT
--- NOTE | 2018-02-11 13:23 | CT ---
EXAM DATE: 02/09/18 PATIENT'S AGE: 87 Patient: JULIANA COOL Facility: [place], [place] Site . Site : 1930 Study: CT Spine Cervical WO CONT [id number]/29/2018 2:10:11 PM Ordering Physician: Aaron Jacobs Final Report: INDICATION: Fall TECHNIQUE: CT cervical spine without contrast. COMPARISON: June 25, 2017 FINDINGS: Vertebrae: Alignment is normal. There are no fractures or suspicious bony lesions. Discs and facet joints: There are degenerative disc changes most severe at C5-6 and C6-7. There are multilevel degenerative changes in the facets. Extraspinal findings: Paraspinous soft tissues are unremarkable. IMPRESSION: 1. No sign of acute injury. 2. Multilevel degenerative spondylosis. Please note that all CT scans at this facility use dose modulation, iterative reconstruction, and/or weight-based dosing when appropriate to reduce radiation dose to as low as reasonably achievable. Dictated by Mal Maria MD @ Feb 09 2018 2:48PM (Electronic Signature) Report Signed by Proxy. [facility]
--- NOTE | 2018-02-11 13:23 | CT ---
EXAM DATE: 02/09/18 PATIENT'S AGE: 87 Patient: JULIANA COOL Facility: [place], [place] Site . Site : 1930 Study: CT Head WO CONT [id number]/29/2018 2:09:36 PM Ordering Physician: Aaron Jacobs Final Report: INDICATION: Fall. History of stroke. TECHNIQUE: Head CT without contrast. COMPARISON: August 20, 2017. FINDINGS: CSF spaces: Within normal limits for age. Brain parenchyma: There are nonspecific low attenuation white matter changes consistent with chronic microvascular disease. No sign of mass, hemorrhage, or midline shift. Skull base and calvarium: The visualized paranasal sinuses and mastoid air cells demonstrate no acute or significant findings. The visualized orbits are grossly unremarkable. No skull fractures. IMPRESSION: No acute abnormality. Stable age-related changes. Please note that all CT scans at this facility use dose modulation, iterative reconstruction, and/or weight-based dosing when appropriate to reduce radiation dose to as low as reasonably achievable. Dictated by Mal Maria MD @ Feb 09 2018 2:41PM (Electronic Signature) Report Signed by Proxy. [facility]ITAL[facility]ol[facility]
--- NOTE | 2018-02-11 13:24 | CR ---
EXAM DATE: 02/09/18 PATIENT'S AGE: 87 Patient: JULIANA COOL Facility: [place], [place] Site . Site : 1930 Study: XRay Pelvis [id number]/29/2018 2:14:02 PM Ordering Physician: Aaron Jacobs Final Report: INDICATION: Fall. Trauma. COMPARISON: None. FINDINGS: AP view of the pelvis was obtained. There is an old left hip fracture reduced secured with a gamma screw and an sideplate as well as 2nd screw into the left femoral neck. There is his appearance of old fractures in the left inferior and superior pubic rami. There are moderate degenerative changes in the right hip and mild degenerative changes in the left hip. There are degenerative changes in the lumbar spine. IMPRESSION: No acute fracture seen. Dictated by Otto Choi MD @ 02/09/2018 2:40:22 PM Dictated by: Otto Choi MD @ 02/09/2018 14:40:50 (Electronic Signature) Report Signed by Proxy. [facility]
--- NOTE | 2018-02-11 13:25 | CR ---
EXAM DATE: 02/09/18 PATIENT'S AGE: 87 Patient: JULIANA COOL Facility: [place], [place] Site . Site : 1930 Study: XRay Shoulder Left [id number]/2018 2:14:46 PM Ordering Physician: Aaron Jacobs Final Report: INDICATION: Fall. Pain. COMPARISON: 10/02/2017. FINDINGS: Two views of the left shoulder were obtained. There are marked degenerative changes in the glenohumeral joint and moderate degenerative changes in the acromioclavicular joint a there is nondisplaced fracture in the greater tuberosity. There is no other definite fracture seen or dislocation. IMPRESSION: Nondisplaced fracture greater tuberosity. Marked degenerative changes glenohumeral joint. Dictated by Otto Choi MD @ 02/09/2018 2:37:58 PM Dictated by: Otto Choi MD @ 02/09/2018 14:38:29 (Electronic Signature) Report Signed by Proxy. [facility]
--- NOTE | 2018-02-11 13:26 | CR ---
EXAM DATE: 02/09/18 PATIENT'S AGE: 87 Patient: JULIANA COOL Facility: [place], [place] Site . Site : 1930 Study: XRay Chest [id number]/29/2018 2:15:26 PM Ordering Physician: Aaron Jacobs Final Report: INDICATION: Fall. Pain. COMPARISON: 02/08/2018. FINDINGS: AP view of the chest was obtained. The cardiac silhouette is enlarged. There are atherosclerotic calcifications. The pulmonary vasculature is within normal limits. The lungs are clear bilaterally. There is no pneumothorax seen. There is scoliosis and degenerative changes in the spine. There are marked degenerative changes in the left shoulder. There is a right shoulder arthroplasty. IMPRESSION: 1. Stable chest x-ray. 2. Cardiomegaly. 3. No evidence of acute pulmonary disease. Dictated by Otto Choi MD @ 02/09/2018 2:42:44 PM Dictated by: Otto Choi MD @ 02/09/2018 14:42:55 (Electronic Signature) Report Signed by Proxy. [facility]
== END 2018-02-09 16:20 | disposition home or self-care (01) ==
LOC: MW.ED 13:08
DX: S42.255A Nondisplaced fracture of greater tuberosity of left humerus, initial encounter for closed fracture (principal); Z88.5 Allergy status to narcotic agent; Z88.8 Allergy status to other drugs, medicaments and biological substances; Z79.82 Long term (current) use of aspirin; Z79.899 Other long term (current) drug therapy; W19.XXXA Unspecified fall, initial encounter; Y92.219 Unspecified school as the place of occurrence of the external cause
CPT/HCPCS: 36415; 70450; 71045; 72125; 72170; 73030; 80053; 85025; 85610; 93005; 99285; G0390; 99284

== ENCOUNTER 2019-03-22 22:17 | Observation (INO) | payer MEDICARE, OTHER, SELFPAY ==
[2019-03-22] MEDS ORDERED: Ondansetron 4 MG/2 ML SDV IVPUSH ONE (22:46)
[2019-03-22] MEDS ORDERED: Pantoprazole 40 MG Vial IVPUSH ONE (22:46)
[2019-03-22] MEDS ORDERED: Sodium Chloride 0.9% 10 ML Syringe FLUSH PRN (22:46)
[2019-03-22] MEDS ORDERED: Sodium Chloride 0.9% 2.5 ML Syringe FLUSH PRN (22:46)
--- NOTE | 2019-03-22 22:50 | EDM.PDOC ---
ED HPI GENERAL MEDICAL PROBLEM - General Chief Complaint: Gastrointestinal Problem Stated Complaint: VOMITTING Time Seen by Provider: 03/22/19 22:42 - History of Present Illness INITIAL COMMENTS - FREE TEXT/NARRATIVE: HISTORY AND PHYSICAL: History of present illness: The patient is an 88-year-old female with a history of hypertension hypercholesterolemia a stroke in the past and atrial fibrillation, for which she only takes aspirin 325 mg daily and no other anticoagulation, and presents with an episode of diffuse mid and upper abdominal pain while she was on the toilet urinating and then one episode which was an amount of bright red blood and some food and 3 clots per the daughter. She did not have a bowel movement today and her bowel movement yesterday was normal and not diarrhea black or bloody. The patient has no GI history of ulcer disease. Currently in the ED she does not feel nauseated and she says that she feels achy in her abdomen but not the way it felt earlier. She has no chest pain or shortness of breath no lightheadedness or dizziness. Review of systems: As per history of present illness and below otherwise all systems reviewed and negative. Past medical history: As per history of present illness and as reviewed below otherwise noncontributory. Surgical history: As per history of present illness and as reviewed below otherwise noncontributory. Social history: No reported history of drug or alcohol abuse. Family history: As per history of present illness and as reviewed below otherwise noncontributory. Physical exam: General: Well-developed well-nourished female who is nontoxic and vital signs are noted by me. HEENT: Atraumatic, normocephalic, pupils reactive, negative for conjunctival pallor or scleral icterus, mucous membranes moist, throat clear, neck supple, nontender, trachea midline. Lungs: Clear to auscultation, breath sounds equal bilaterally, chest nontender. Heart: S1S2, regular rate and slightly irregular rhythm but no overt murmurs Abdomen: Soft, nondistended, nontender. Bowel sounds are hyperactive and there is some tympany on percussion but no rebound or guarding Negative for masses or hepatosplenomegaly. Negative for costovertebral tenderness. Pelvis: Stable nontender. Genitourinary: Deferred. Rectal: Hemoccult negative with light brown stool per nursing Extremities: Atraumatic, negative for cords or calf pain. Neurovascular unremarkable. Neuro: Awake, alert, oriented. Cranial nerves II through XII unremarkable. Cerebellum unremarkable. Motor and sensory unremarkable throughout. Exam nonfocal. Diagnostics: EKG CBC CMP amylase lipase INR type and screen UA with reflex Therapeutics: IV O2 monitor gentle IV fluids Protonix bolus and drip Zofran Repeat blood pressure here is 124/68 and currently still awaiting the x-ray results and the UA test. At this point the patient has not had any more vomiting here and I will likely plan on admission here to our hospital. Patient has not had any nausea or abdominal pain or vomiting here in the ED and she and family at bedside are aware of results. I discussed this case with Dr. Castaneda at 0033 and he accepts the patient for observation admission Impression: Hematemesis Definitive disposition and diagnosis as appropriate pending reevaluation and review of above. - Related Data Allergies Allergy/AdvReac Type Severity Reaction Status Date / Time candesartan [From Atacand] Allergy Hallucinati Verified 03/22/19 22:18 ons enalaprilat [From Vasotec] Allergy Hallucinati Verified 03/22/19 22:18 ons lisinopril Allergy Hallucinati Verified 03/22/19 22:18 ons morphine Allergy Hallucinati Verified 03/22/19 22:18 ons propoxyphene Allergy Hallucinati Verified 03/22/19 22:18 [From Darvocet-N] ons tramadol Allergy Hallucinati Verified 03/22/19 22:18 ons Home Meds: Home Meds Acetaminophen 650 mg PO DAILY PRN 06/25/17 [History] Aspirin 325 mg PO BEDTIME 06/25/17 [History] Budesonide/Formoterol [Symbicort 80-4.5 MCG] 6.9 gm INH ASDIRECTED 06/25/17 [ History] Calcium Carbonate 500 mg PO BID 06/25/17 [History] Furosemide 20 mg PO DAILY 06/25/17 [History] Losartan [Cozaar] 50 mg PO BID 06/25/17 [History] Multivitamin [Multivitamins] 1 tab PO DAILY 06/25/17 [History] Potassium Chloride 10 meq PO DAILY 06/25/17 [History] atorvaSTATin [Lipitor] 20 mg PO BEDTIME 06/25/17 [History] Metoprolol Tartrate 50 mg PO BID 08/07/18 [History] Bisacodyl 10 mg RECTAL ASDIRECTED 03/22/19 [History] Cyanocobalamin (Vitamin B-12) [B-12] 1,000 mg PO DAILY 03/22/19 [History] Diclofenac Sodium [Voltaren 1% Gel] 100 gm TOP ASDIRECTED 03/22/19 [History] Ferrous Sulfate [Iron] 325 mg PO DAILY 03/22/19 [History] Folic Acid 1 mg PO DAILY 03/22/19 [History] Polyethylene Glycol 3350 [MiraLAX] 17 gm PO ASDIRECTED 03/22/19 [History] Psyllium Husk 3.4 gm PO ASDIRECTED 03/22/19 [History] levETIRAcetam [Keppra] 500 mg PO BID 03/22/19 [History] Past Medical History HEENT History: Reports: Other (See Below) Other HEENT History: nasal polups Cardiovascular History: Reports: Afib, High Cholesterol, Other (See Below) Other Cardiovascular History: Enlagred heart Respiratory History: Reports: None Gastrointestinal History: Reports: None Genitourinary History: Reports: None [employer] History: Reports: None Musculoskeletal History: Reports: None Neurological History: Reports: TIA, Other (See Below) Other Neuro History: Brain bleed Psychiatric History: Reports: None Endocrine/Metabolic History: Reports: None Hematologic History: Reports: None Immunologic History: Reports: None Oncologic (Cancer) History: Reports: None Dermatologic History: Reports: None - Infectious Disease History Infectious Disease History: Reports: None - Past Surgical History Head Surgeries/Procedures: Reports: None HEENT Surgical History: Reports: None Cardiovascular Surgical History: Reports: None Respiratory Surgical History: Reports: None GI Surgical History: Reports: None Female Surgical History: Reports: None Endocrine Surgical History: Reports: None Neurological Surgical History: Reports: None Musculoskeletal Surgical History: Reports: Hip Replacement, Joint Replacement, Knee Replacement, Shoulder Replacement Oncologic Surgical History: Reports: None Dermatological Surgical History: Reports: None Social & Family History - Family History Family Medical History: Noncontributory - Tobacco Use Smoking Status *Q: Former Smoker Used Tobacco, but Quit: Yes Month/Year Tobacco Last Used: 1979 - Caffeine Use Caffeine Use: Reports: Coffee, Soda Caffeine Use Comment: 1 cup - Recreational Drug Use Recreational Drug Use: No ED ROS GENERAL - Review of Systems Review Of Systems: ROS reveals no pertinent complaints other than HPI. ED EXAM, GENERAL - Physical Exam Exam: See Below (See dictation) Course - Vital Signs Last Recorded V/S: Last Vital Signs Temp 36.0 C 03/22/19 22:32 Pulse 72 03/23/19 00:05 Resp 12 03/23/19 00:05 BP 137/69 03/23/19 00:05 Pulse Ox 98 03/23/19 00:05 - Orders/Labs/Meds Orders: Active Orders 24 hr Category Date Time Status Patient Status [ADT] Stat ADT 03/23/19 00:35 Ordered Cardiac Monitoring [RC] . DIRECTED Care 03/22/19 22:46 Active EKG Documentation Completion [RC] STAT Care 03/22/19 22:46 Active Oxygen Therapy, ED [RC] ASDIRECTED Care 03/22/19 22:46 Active Pulse Oximetry [RC] ASDIRECTED Care 03/22/19 22:46 Active Abdomen Series w Chest 1V [CR] Stat Exams 03/22/19 23:38 Taken UA RFX [place] AND CULT IF INDIC [URIN] Stat Lab 03/22/19 22:46 Ordered Pantoprazole [ProTONIX IV] 80 mg Med 03/23/19 00:45 Active Sodium Chloride 0.9% [Normal Saline] 100 ml IV .Continuous Sodium Chloride 0.9% [Normal Saline] 500 ml Med 03/22/19 23:00 Active IV STAT Sodium Chloride 0.9% [Saline Flush] Med 03/22/19 22:46 Active 10 ml FLUSH ASDIRECTED PRN Sodium Chloride 0.9% [Saline Flush] Med 03/22/19 22:46 Active 2.5 ml FLUSH ASDIRECTED PRN Saline Lock Insert [OM.PC] Stat Oth 03/22/19 22:46 Ordered Medication Orders Sodium Chloride (Normal Saline) 500 mls @ 999 mls/hr IV STAT CARLYN Pantoprazole Sodium 80 mg/ (Sodium Chloride) 100 mls @ 10 mls/hr IV .Continuous CARLYN Sodium Chloride (Saline Flush) 10 ml FLUSH ASDIRECTED PRN PRN Reason: Keep Vein Open Sodium Chloride (Saline Flush) 2.5 ml FLUSH ASDIRECTED PRN PRN Reason: Keep Vein Open Labs: Laboratory Tests 11/09/19 11/09/19 11/09/19 Range/Units 22:10 22:10 22:10 WBC 6.69 (4.0-11.0) K/uL RBC 3.27 L (4.30-5.90) M/uL Hgb 10.3 L (12.0-16.0) g/dL Hct 32.3 L (36.0-46.0) % MCV 98.8 H (80.0-98.0) fL MCH 31.5 (27.0-32.0) pg MCHC 31.9 (31.0-37.0) g/dL RDW Std Deviation 49.0 (28.0-62.0) fl RDW Coeff of Rosalinda 14 (11.0-15.0) % Plt Count 186 (150-400) K/uL MPV 9.10 (7.40-12.00) fL Neut % (Auto) 53.4 (48.0-80.0) % Lymph % (Auto) 34.1 (16.0-40.0) % Pitt % (Auto) 6.9 (0.0-15.0) % Eos % (Auto) 4.9 (0.0-7.0) % Baso % (Auto) 0.7 (0.0-1.5) % Neut # (Auto) 3.6 (1.4-5.7) K/uL Lymph # (Auto) 2.3 (0.6-2.4) K/uL Pitt # (Auto) 0.5 (0.0-0.8) K/uL Eos # (Auto) 0.3 (0.0-0.7) K/uL Baso # (Auto) 0.1 (0.0-0.1) K/uL Nucleated RBC % 0.0 /100WBC Nucleated RBCs # 0 K/uL INR 1.16 Sodium 144 (136-145) mmol/L Potassium 4.1 (3.5-5.1) mmol/L Chloride 107 (98-107) mmol/L Carbon Dioxide 30.1 (21.0-32.0) mmol/L BUN 36 H (7.0-18.0) mg/dL Creatinine 1.0 (0.6-1.0) mg/dL Est Cr Clr Drug Dosing 30.16 mL/min Estimated GFR (MDRD) 52.2 ml/min Glucose 108 H (74-106) mg/dL Calcium 8.7 (8.5-10.1) mg/dL Total Bilirubin 0.4 (0.2-1.0) mg/dL AST 13 L (15-37) IU/L ALT 13 L (14-63) IU/L Alkaline Phosphatase 58 (46-116) U/L Total Protein 6.5 (6.4-8.2) g/dL Albumin 3.6 (3.4-5.0) g/dL Globulin 2.9 (2.6-4.0) g/dL Albumin/Globulin Ratio 1.2 (0.9-1.6) Amylase 38 (25-115) U/L Lipase 150 (73-393) U/L Blood Type Antibody Screen 03/22/19 Range/Units 22:50 WBC (4.0-11.0) K/uL RBC (4.30-5.90) M/uL Hgb (12.0-16.0) g/dL Hct (36.0-46.0) % MCV (80.0-98.0) fL MCH (27.0-32.0) pg MCHC (31.0-37.0) g/dL RDW Std Deviation (28.0-62.0) fl RDW Coeff of Rosalinda (11.0-15.0) % Plt Count (150-400) K/uL MPV (7.40-12.00) fL Neut % (Auto) (48.0-80.0) % Lymph % (Auto) (16.0-40.0) % Pitt % (Auto) (0.0-15.0) % Eos % (Auto) (0.0-7.0) % Baso % (Auto) (0.0-1.5) % Neut # (Auto) (1.4-5.7) K/uL Lymph # (Auto) (0.6-2.4) K/uL Pitt # (Auto) (0.0-0.8) K/uL Eos # (Auto) (0.0-0.7) K/uL Baso # (Auto) (0.0-0.1) K/uL Nucleated RBC % /100WBC Nucleated RBCs # K/uL INR Sodium (136-145) mmol/L Potassium (3.5-5.1) mmol/L Chloride (98-107) mmol/L Carbon Dioxide (21.0-32.0) mmol/L BUN (7.0-18.0) mg/dL Creatinine (0.6-1.0) mg/dL Est Cr Clr Drug Dosing mL/min Estimated GFR (MDRD) ml/min Glucose (74-106) mg/dL Calcium (8.5-10.1) mg/dL Total Bilirubin (0.2-1.0) mg/dL AST (15-37) IU/L ALT (14-63) IU/L Alkaline Phosphatase (46-116) U/L Total Protein (6.4-8.2) g/dL Albumin (3.4-5.0) g/dL Globulin (2.6-4.0) g/dL Albumin/Globulin Ratio (0.9-1.6) Amylase (25-115) U/L Lipase (73-393) U/L Blood Type A POSITIVE Antibody Screen NEGATIVE Meds: Medications Generic Name Dose Route Start Last Admin Trade Name Freq PRN Reason Stop Dose Admin Sodium Chloride 500 mls @ 999 mls/hr 03/22/19 23:00 Normal Saline IV STAT CARLYN Pantoprazole Sodium 80 mg/ 100 mls @ 10 mls/hr 03/23/19 00:45 Sodium Chloride IV .Continuous CARLYN Sodium Chloride 10 ml 03/22/19 22:46 Saline Flush FLUSH ASDIRECTED PRN Keep Vein Open Sodium Chloride 2.5 ml 03/22/19 22:46 Saline Flush FLUSH ASDIRECTED PRN Keep Vein Open Discontinued Medications Generic Name Dose Route Start Last Admin Trade Name Freq PRN Reason Stop Dose Admin Sodium Chloride Confirm 03/22/19 22:59 Normal Saline Administered 03/22/19 23:00 Dose 20 mls @ as directed .ROUTE .STK-MED ONE Ondansetron HCl 4 mg 03/22/19 22:46 Zofran IVPUSH 03/22/19 22:47 ONETIME ONE Pantoprazole Sodium 80 mg 03/22/19 22:46 Protonix Iv IVPUSH 03/22/19 22:47 .BOLUS ONE Departure - Departure Time of Disposition: 00:37 Disposition: Refer to Observation Condition: Good Clinical Impression: Hematemesis Qualifiers: Nausea presence: with nausea Qualified Code(s): K92.0 - Hematemesis - Discharge Information Referrals: Bradley Palma MD [Primary Care Provider] - Forms: ED Department Discharge - My Orders Last 24 Hours: My Active Orders 03/22/19 22:46 Cardiac Monitoring [RC] . DIRECTED EKG Documentation Completion [RC] STAT Oxygen Therapy, ED [RC] ASDIRECTED Pulse Oximetry [RC] ASDIRECTED UA RFX [place] AND CULT IF INDIC [URIN] Stat Sodium Chloride 0.9% [Saline Flush] 10 ml FLUSH ASDIRECTED PRN Sodium Chloride 0.9% [Saline Flush] 2.5 ml FLUSH ASDIRECTED PRN Saline Lock Insert [OM.PC] Stat 03/22/19 23:00 Sodium Chloride 0.9% [Normal Saline] 500 ml IV STAT 03/22/19 23:38 Abdomen Series w Chest 1V [CR] Stat 03/23/19 00:35 Patient Status [ADT] Stat 03/23/19 00:45 Pantoprazole [ProTONIX IV] 80 mg Sodium Chloride 0.9% [Normal Saline] 100 ml IV .Continuous - Assessment/Plan Last 24 Hours: My Active Orders 03/22/19 22:46 Cardiac Monitoring [RC] . DIRECTED EKG Documentation Completion [RC] STAT Oxygen Therapy, ED [RC] ASDIRECTED Pulse Oximetry [RC] ASDIRECTED UA RFX [place] AND CULT IF INDIC [URIN] Stat Sodium Chloride 0.9% [Saline Flush] 10 ml FLUSH ASDIRECTED PRN Sodium Chloride 0.9% [Saline Flush] 2.5 ml FLUSH ASDIRECTED PRN Saline Lock Insert [OM.PC] Stat 03/22/19 23:00 Sodium Chloride 0.9% [Normal Saline] 500 ml IV STAT 03/22/19 23:38 Abdomen Series w Chest 1V [CR] Stat 03/23/19 00:35 Patient Status [ADT] Stat 03/23/19 00:45 Pantoprazole [ProTONIX IV] 80 mg Sodium Chloride 0.9% [Normal Saline] 100 ml IV .Continuous
[2019-03-22] MEDS ORDERED: Sodium Chloride 0.9% 20 ML ONE (22:59)
[2019-03-22] MEDS ORDERED: Sodium Chloride 0.9% 500 ML IV SCH (23:00)
[2019-03-22 23:05] LABS: CARBON DIOXIDE,CO2 30.1 mmol/L (21.0-32.0); POTASSIUM,K 4.1 mmol/L (3.5-5.1)
--- NOTE | 2019-03-23 00:40 | CR ---
Indication: Abdominal pain Technique: Two views of the chest in two views of the abdomen and pelvis. Findings: Mildly enlarged cardiac silhouette. Left bilateral humeral prostheses. Abundant stool in the colon. Bowel gas pattern nonobstructive postsurgical changes of the left femur possible old left inferior pubic ramus fracture. Impression: Nonobstructive bowel gas pattern with large colonic stool volume. Dictated by Ashtyn Lee MD @ Mar 23 2019 12:35AM Signed by Dr. Ashtyn Lee @ Mar 23 2019 12:37AM
[2019-03-23] MEDS ORDERED: Pantoprazole 80 MG in Sodium Chloride 0.9% 100 ML IV SCH (00:45)
[2019-03-23] MEDS ORDERED: Sodium Chloride 0.9% 1,000 ML IV SCH (00:45)
[2019-03-23 07:07] LABS: CARBON DIOXIDE,CO2 28.5 mmol/L (21.0-32.0); POTASSIUM,K 4.1 mmol/L (3.5-5.1)
--- NOTE | 2019-03-23 07:42 | PCM.HP.2 ---
H&P History of Present Illness - General Date of Service: 03/23/19 Admit Problem/Dx: Admission Diagnosis/Problem Admission Diagnosis/Problem Hematemesis - History of Present Illness Initial Comments - Free Text/Narative: 88 y/o female with history of Afib on aspirin, presenting to the ER complaining of hematemesis. Per daughter, the patient started vomiting yesterday with some dark blood clots. No blood in stool. In the ER, she was noted to have Hg 12, now down to Hg 8 after fluids. Started on protonix drip. Overnight, the patient did not have any emesis. Has not had a bowel movement. Xray showed significant amount of stool in colon. She is complaining of abdominal pain, dysuria. No chest pain, dyspnea. - Related Data Allergies/Adverse Reactions: Allergies Allergy/AdvReac Type Severity Reaction Status Date / Time candesartan [From Atacand] Allergy Hallucinati Verified 03/22/19 22:18 ons enalaprilat [From Vasotec] Allergy Hallucinati Verified 03/22/19 22:18 ons lisinopril Allergy Hallucinati Verified 03/22/19 22:18 ons morphine Allergy Hallucinati Verified 03/22/19 22:18 ons propoxyphene Allergy Hallucinati Verified 03/22/19 22:18 [From Darvocet-N] ons tramadol Allergy Hallucinati Verified 03/22/19 22:18 ons Home Medications: Home Meds Acetaminophen 1,000 mg PO BID PRN 06/25/17 [History] Aspirin 325 mg PO BEDTIME 06/25/17 [History] Budesonide/Formoterol [Symbicort 80-4.5 MCG] 6.9 gm INH ASDIRECTED 06/25/17 [ History] Furosemide 20 mg PO DAILY 06/25/17 [History] Losartan [Cozaar] 50 mg PO BID 06/25/17 [History] Multivitamin [Multivitamins] 1 tab PO DAILY 06/25/17 [History] Potassium Chloride 10 meq PO BID 06/25/17 [History] atorvaSTATin [Lipitor] 20 mg PO BEDTIME 06/25/17 [History] Metoprolol Tartrate 50 mg PO BID 12/18/17 [History] Bisacodyl 10 mg RECTAL ASDIRECTED 03/22/19 [History] Diclofenac Sodium [Voltaren 1% Gel] 100 gm TOP ASDIRECTED 03/22/19 [History] Polyethylene Glycol 3350 [MiraLAX] 17 gm PO ASDIRECTED 03/22/19 [History] Psyllium Husk 3.4 gm PO ASDIRECTED 03/22/19 [History] levETIRAcetam [Keppra] 500 mg PO BID 03/22/19 [History] Past Medical History HEENT History: Reports: Hard of Hearing, Impaired Vision, Other (See Below) Other HEENT History: nasal polyps, wears glasses, upper dentures-not with pt Cardiovascular History: Reports: Afib, High Cholesterol, Other (See Below) Other Cardiovascular History: Enlagred heart Respiratory History: Reports: None Gastrointestinal History: Reports: None Genitourinary History: Reports: Urinary Incontinence 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: Reports: Musculoskeletal History: Reports: None Neurological History: Reports: TIA, Other (See Below) Other Neuro History: Brain bleed Psychiatric History: Reports: None Endocrine/Metabolic History: Reports: None Hematologic History: Reports: None Immunologic History: Reports: None Oncologic (Cancer) History: Reports: None Dermatologic History: Reports: None - Infectious Disease History Infectious Disease History: Reports: Chicken Pox, Measles - Past Surgical History Head Surgeries/Procedures: Reports: None HEENT Surgical History: Reports: None Cardiovascular Surgical History: Reports: None Respiratory Surgical History: Reports: None GI Surgical History: Reports: None Female Surgical History: Reports: None Endocrine Surgical History: Reports: None Neurological Surgical History: Reports: None Musculoskeletal Surgical History: Reports: Hip Replacement, Joint Replacement, Knee Replacement, Shoulder Replacement Other Musculoskeletal Surgeries/Procedures:: bilat shoulder, bilat knee, r hip Oncologic Surgical History: Reports: None Dermatological Surgical History: Reports: None Social & Family History - Family History Family Medical History: Noncontributory - Tobacco Use Smoking Status *Q: Former Smoker Used Tobacco, but Quit: Yes Month/Year Tobacco Last Used: 1979 - Caffeine Use Caffeine Use: Reports: Coffee Caffeine Use Comment: 1 cup - Recreational Drug Use Recreational Drug Use: No H&P Review of Systems - Review of Systems: Review Of Systems: ROS reveals no pertinent complaints other than HPI. Exam - Exam Exam: See Below - Vital Signs Vital Signs: Last Vital Signs Temp 36.4 C 03/23/19 03:17 Pulse 77 03/23/19 03:00 Resp 17 11/10/19 03:17 BP 130/63 03/23/19 03:17 Pulse Ox 96 03/23/19 03:17 Weight: 64.41 kg - Exam General: Alert, Other (disoriented to place) HEENT: Other (dry oral mucosa) Lungs: Clear to Auscultation, Normal Respiratory Effort. No: Crackles, Wheezing Cardiovascular: Regular Rate, Regular Rhythm GI/Abdominal Exam: Normal Bowel Sounds, Soft, No Distention, Other (tender in pelvic region) Extremities: Normal Inspection, No Pedal Edema Skin: Warm, Dry - Patient Data Lab Results Last 24 hrs: Laboratory Results - last 24 hr 03/22/19 03/22/19 03/22/19 Range/Units 22:10 22:10 22:10 WBC 6.69 (4.0-11.0) K/uL RBC 3.27 L (4.30-5.90) M/uL Hgb 10.3 L (12.0-16.0) g/dL Hct 32.3 L (36.0-46.0) % MCV 98.8 H (80.0-98.0) fL MCH 31.5 (27.0-32.0) pg MCHC 31.9 (31.0-37.0) g/dL RDW Std Deviation 49.0 (28.0-62.0) fl RDW Coeff of Rosalinda 14 (11.0-15.0) % Plt Count 186 (150-400) K/uL MPV 9.10 (7.40-12.00) fL Neut % (Auto) 53.4 (48.0-80.0) % Lymph % (Auto) 34.1 (16.0-40.0) % Wells % (Auto) 6.9 (0.0-15.0) % Eos % (Auto) 4.9 (0.0-7.0) % Baso % (Auto) 0.7 (0.0-1.5) % Neut # (Auto) 3.6 (1.4-5.7) K/uL Lymph # (Auto) 2.3 (0.6-2.4) K/uL [place] # (Auto) 0.5 (0.0-0.8) K/uL Eos # (Auto) 0.3 (0.0-0.7) K/uL Baso # (Auto) 0.1 (0.0-0.1) K/uL Nucleated RBC % 0.0 /100WBC Nucleated RBCs # 0 K/uL INR 1.16 Sodium 144 (136-145) mmol/L Potassium 4.1 (3.5-5.1) mmol/L Chloride 107 (98-107) mmol/L Carbon Dioxide 30.1 (21.0-32.0) mmol/L BUN 36 H (7.0-18.0) mg/dL Creatinine 1.0 (0.6-1.0) mg/dL Est Cr Clr Drug Dosing 30.16 mL/min Estimated GFR (MDRD) 52.2 ml/min Glucose 108 H (74-106) mg/dL Calcium 8.7 (8.5-10.1) mg/dL Total Bilirubin 0.4 (0.2-1.0) mg/dL AST 13 L (15-37) IU/L ALT 13 L (14-63) IU/L Alkaline Phosphatase 58 (46-116) U/L Total Protein 6.5 (6.4-8.2) g/dL Albumin 3.6 (3.4-5.0) g/dL Globulin 2.9 (2.6-4.0) g/dL Albumin/Globulin Ratio 1.2 (0.9-1.6) Amylase 38 (25-115) U/L Lipase 150 (73-393) U/L Urine Color Urine Appearance Urine pH (5.0-8.0) Ur Specific [place] (1.001-1.035) Urine Protein (NEGATIVE) mg/dL Urine Glucose (UA) (NEGATIVE) mg/dL Urine Ketones (NEGATIVE) mg/dL Urine Occult Blood (NEGATIVE) Urine Nitrite (NEGATIVE) Urine Bilirubin (NEGATIVE) Urine Urobilinogen (<2.0) EU/dL Ur Leukocyte Esterase (NEGATIVE) Urine RBC (0-2/HPF) Urine WBC (0-5/HPF) Ur Epithelial Cells (NONE-FEW) Urine Bacteria (NEGATIVE) Blood Type Antibody Screen 03/22/19 03/23/19 03/23/19 Range/Units 22:50 00:30 06:20 WBC 4.95 (4.0-11.0) K/uL RBC 2.72 L (4.30-5.90) M/uL Hgb 8.4 L (12.0-16.0) g/dL Hct 26.4 L (36.0-46.0) % MCV 97.1 (80.0-98.0) fL MCH 30.9 (27.0-32.0) pg MCHC 31.8 (31.0-37.0) g/dL RDW Std Deviation 47.2 (28.0-62.0) fl RDW Coeff of Rosalinda 13 (11.0-15.0) % Plt Count 151 (150-400) K/uL MPV 9.00 (7.40-12.00) fL Neut % (Auto) 51.9 (48.0-80.0) % Lymph % (Auto) 39.0 (16.0-40.0) % Wells % (Auto) 5.9 (0.0-15.0) % Eos % (Auto) 2.6 (0.0-7.0) % Baso % (Auto) 0.6 (0.0-1.5) % Neut # (Auto) 2.6 (1.4-5.7) K/uL Lymph # (Auto) 1.9 (0.6-2.4) K/uL [place] # (Auto) 0.3 (0.0-0.8) K/uL Eos # (Auto) 0.1 (0.0-0.7) K/uL Baso # (Auto) 0.0 (0.0-0.1) K/uL Nucleated RBC % 0.0 /100WBC Nucleated RBCs # 0 K/uL INR Sodium (136-145) mmol/L Potassium (3.5-5.1) mmol/L Chloride (98-107) mmol/L Carbon Dioxide (21.0-32.0) mmol/L BUN (7.0-18.0) mg/dL Creatinine (0.6-1.0) mg/dL Est Cr Clr Drug Dosing mL/min Estimated GFR (MDRD) ml/min Glucose (74-106) mg/dL Calcium (8.5-10.1) mg/dL Total Bilirubin (0.2-1.0) mg/dL AST (15-37) IU/L ALT (14-63) IU/L Alkaline Phosphatase (46-116) U/L Total Protein (6.4-8.2) g/dL Albumin (3.4-5.0) g/dL Globulin (2.6-4.0) g/dL Albumin/Globulin Ratio (0.9-1.6) Amylase (25-115) U/L Lipase (73-393) U/L Urine Color YELLOW Urine Appearance SLT CLOUDY Urine pH 7.0 (5.0-8.0) Ur Specific [place] 1.010 (1.001-1.035) Urine Protein NEGATIVE (NEGATIVE) mg/dL Urine Glucose (UA) NEGATIVE (NEGATIVE) mg/dL Urine Ketones TRACE H (NEGATIVE) mg/dL Urine Occult Blood TRACE-INTACT H (NEGATIVE) Urine Nitrite NEGATIVE (NEGATIVE) Urine Bilirubin NEGATIVE (NEGATIVE) Urine Urobilinogen 0.2 (<2.0) EU/dL Ur Leukocyte Esterase TRACE H (NEGATIVE) Urine RBC 2-4 (0-2/HPF) Urine WBC 1-4 (0-5/HPF) Ur Epithelial Cells OCCASIONAL (NONE-FEW) Urine Bacteria FEW (NEGATIVE) Blood Type A POSITIVE Antibody Screen NEGATIVE 03/23/19 Range/Units 06:20 WBC (4.0-11.0) K/uL RBC (4.30-5.90) M/uL Hgb (12.0-16.0) g/dL Hct (36.0-46.0) % MCV (80.0-98.0) fL MCH (27.0-32.0) pg MCHC (31.0-37.0) g/dL RDW Std Deviation (28.0-62.0) fl RDW Coeff of Rosalinda (11.0-15.0) % Plt Count (150-400) K/uL MPV (7.40-12.00) fL Neut % (Auto) (48.0-80.0) % Lymph % (Auto) (16.0-40.0) % Wells % (Auto) (0.0-15.0) % Eos % (Auto) (0.0-7.0) % Baso % (Auto) (0.0-1.5) % Neut # (Auto) (1.4-5.7) K/uL Lymph # (Auto) (0.6-2.4) K/uL [place] # (Auto) (0.0-0.8) K/uL Eos # (Auto) (0.0-0.7) K/uL Baso # (Auto) (0.0-0.1) K/uL Nucleated RBC % /100WBC Nucleated RBCs # K/uL INR Sodium 145 (136-145) mmol/L Potassium 4.1 (3.5-5.1) mmol/L Chloride 110 H (98-107) mmol/L Carbon Dioxide 28.5 (21.0-32.0) mmol/L BUN 38 H (7.0-18.0) mg/dL Creatinine 1.0 (0.6-1.0) mg/dL Est Cr Clr Drug Dosing 31.55 mL/min Estimated GFR (MDRD) 52.2 ml/min Glucose 73 L (74-106) mg/dL Calcium 8.8 (8.5-10.1) mg/dL Total Bilirubin (0.2-1.0) mg/dL AST (15-37) IU/L ALT (14-63) IU/L Alkaline Phosphatase (46-116) U/L Total Protein (6.4-8.2) g/dL Albumin (3.4-5.0) g/dL Globulin (2.6-4.0) g/dL Albumin/Globulin Ratio (0.9-1.6) Amylase (25-115) U/L Lipase (73-393) U/L Urine Color Urine Appearance Urine pH (5.0-8.0) Ur Specific [place] (1.001-1.035) Urine Protein (NEGATIVE) mg/dL Urine Glucose (UA) (NEGATIVE) mg/dL Urine Ketones (NEGATIVE) mg/dL Urine Occult Blood (NEGATIVE) Urine Nitrite (NEGATIVE) Urine Bilirubin (NEGATIVE) Urine Urobilinogen (<2.0) EU/dL Ur Leukocyte Esterase (NEGATIVE) Urine RBC (0-2/HPF) Urine WBC (0-5/HPF) Ur Epithelial Cells (NONE-FEW) Urine Bacteria (NEGATIVE) Blood Type Antibody Screen Result Diagrams: 03/23/19 06:20 03/23/19 06:20 Problem List Initiated/Reviewed/Updated: Yes Orders Last 24hrs: Active Orders 24 hr Category Date Time Status Patient Status [ADT] Stat ADT 03/23/19 00:35 Active Cardiac Monitoring [RC] . DIRECTED Care 03/22/19 22:46 Active Influenza Vaccine Charge [RC] .DISCHARGE Care 03/23/19 09:00 Active Oxygen Therapy, ED [RC] ASDIRECTED Care 03/22/19 22:46 Active Pulse Oximetry [RC] ASDIRECTED Care 03/22/19 22:46 Active NPO [Nothing Per Oral Diet] [DIET] Diet 03/23/19 Breakfast Active CULTURE URINE [RM] Stat Lab 03/23/19 00:30 Received Hemoccult [OCCULT BLOOD DIAGNOSTIC] [OP] Routine Lab 03/23/19 07:41 Ordered FLU Vacc [id number](65YR UP)/PF [Fluzone High-Dose 2019- Med 03/23/19 10:00 Once 20 Syringe] 180 mcg IM .ONCE ONE Pantoprazole [ProTONIX IV] 80 mg Med 03/23/19 00:45 Active Sodium Chloride 0.9% [Normal Saline] 100 ml IV .Continuous Sodium Chloride 0.9% [Normal Saline] 1,000 ml Med 03/23/19 00:45 Active IV ASDIRECTED Sodium Chloride 0.9% [Normal Saline] 500 ml Med 03/22/19 23:00 Active IV STAT Sodium Chloride 0.9% [Saline Flush] Med 03/22/19 22:46 Active 10 ml FLUSH ASDIRECTED PRN Sodium Chloride 0.9% [Saline Flush] Med 03/22/19 22:46 Active 2.5 ml FLUSH ASDIRECTED PRN Saline Lock Insert [OM.PC] Stat Oth 03/22/19 22:46 Ordered Medication Orders Sodium Chloride (Normal Saline) 500 mls @ 999 mls/hr IV STAT [facility] Last Admin: 03/23/19 00:36 Dose: 999 mls/hr Pantoprazole Sodium 80 mg/ (Sodium Chloride) 100 mls @ 10 mls/hr IV .Continuous [facility] Last Admin: 03/23/19 01:27 Dose: 10 mls/hr Sodium Chloride (Normal Saline) 1,000 mls @ 75 mls/hr IV ASDIRECTED [facility] Last Admin: 03/23/19 01:27 Dose: 75 mls/hr Influenza Virus Vaccine (Fluzone High-Dose 2018-20 Syringe) 180 mcg IM .ONCE ONE Stop: 03/23/19 10:01 Sodium Chloride (Saline Flush) 10 ml FLUSH ASDIRECTED PRN PRN Reason: Keep Vein Open Last Admin: 03/23/19 01:27 Dose: 10 ml Sodium Chloride (Saline Flush) 2.5 ml FLUSH ASDIRECTED PRN PRN Reason: Keep Vein Open Last Admin: 03/23/19 01:27 Dose: 2.5 ml Assessment/Plan Comment:: A: 1. Suspected hematemesis 2. UTI 3. Constipation 4. PMH Afib on aspirin P: 1. Suspected hematemesis. Hg 8 down from Hg10 overnight. No emesis overnight. Will continue with protonix drip. NPO. H/H Q8H for now. Consult Dr. Ayala. 2. UTI- will start treating with ceftriaxone 3. Constipation- will order enema and monitor. For now NPO until evaluated by general surgery. 4. PMH AFib- holding aspirin for now. Dispo: 1-2 days
[2019-03-23] MEDS ORDERED: Pantoprazole 40 MG in Sodium Chloride 0.9% 10 ML IV SCH (09:00)
--- NOTE | 2019-03-23 11:47 | PCM.PREANE ---
Preanesthetic Assessment - Procedure Proposed Procedure: EGD for GI bleeding - Anesthesia/Transfusion/Family Hx Anesthesia History: Prior Anesthesia Without Reaction Family History of Anesthesia Reaction: No Transfusion History: No Prior Transfusion(s) Intubation History: Unknown - Review of Systems General: Fatigue Pulmonary: Shortness of Breath, Other (Bronchitis) Cardiovascular: Chest Pain (Elevated Tropin), Other Gastrointestinal: Vomiting, Other (GI Bleed Hgb 8.4) Neurological: Confusion, Other (TIA, confusion) - Physical Assessment NPO Status Date: 03/23/19 NPO Status Time: 05:00 Vital Signs: Last Vital Signs Temp 36.3 C 03/23/19 08:00 Pulse 78 03/23/19 08:00 Resp 18 03/23/19 08:00 BP 138/66 03/23/19 08:00 Pulse Ox 96 03/23/19 08:00 Height: 1.6 m Weight: 64.41 kg ASA Class: 4E Mental Status: Other Airway Class: Mallampati = 2 Dentition: Reports: Dentures Thyro-Mental Finger Breadths: 3 Mouth Opening Finger Breadths: 3 ROM/Head Extension: Full Lungs: Clear to Auscultation Cardiovascular: Regular Rate, Irregular Rhythm (Afib. Significant health hx. Anemia, TIA) - Lab Values: Laboratory Last Values WBC 4.95 K/uL (4.0-11.0) 03/23/19 06:20 RBC 2.72 M/uL (4.30-5.90) L 03/23/19 06:20 Hgb 8.4 g/dL (12.0-16.0) L 03/23/19 06:20 Hct 26.4 % (36.0-46.0) L 03/23/19 06:20 MCV 97.1 fL (80.0-98.0) 03/23/19 06:20 MCH 30.9 pg (27.0-32.0) 03/23/19 06:20 MCHC 31.8 g/dL (31.0-37.0) 03/23/19 06:20 RDW Std Deviation 47.2 fl (28.0-62.0) 03/23/19 06:20 RDW Coeff of Rosalinda 13 % (11.0-15.0) 03/23/19 06:20 Plt Count 151 K/uL (150-400) 03/23/19 06:20 MPV 9.00 fL (7.40-12.00) 03/23/19 06:20 Neut % (Auto) 51.9 % (48.0-80.0) 03/23/19 06:20 Lymph % (Auto) 39.0 % (16.0-40.0) 03/23/19 06:20 [place] % (Auto) 5.9 % (0.0-15.0) 03/23/19 06:20 Eos % (Auto) 2.6 % (0.0-7.0) 03/23/19 06:20 Baso % (Auto) 0.6 % (0.0-1.5) 03/23/19 06:20 Neut # (Auto) 2.6 K/uL (1.4-5.7) 03/23/19 06:20 Lymph # (Auto) 1.9 K/uL (0.6-2.4) 03/23/19 06:20 [place] # (Auto) 0.3 K/uL (0.0-0.8) 03/23/19 06:20 Eos # (Auto) 0.1 K/uL (0.0-0.7) 03/23/19 06:20 Baso # (Auto) 0.0 K/uL (0.0-0.1) 03/23/19 06:20 Nucleated RBC % 0.0 /100WBC 03/23/19 06:20 Nucleated RBCs # 0 K/uL 03/23/19 06:20 INR 1.16 03/22/19 22:10 Sodium 145 mmol/L (136-145) 03/23/19 06:20 Potassium 4.1 mmol/L (3.5-5.1) 03/23/19 06:20 Chloride 110 mmol/L (98-107) H 03/23/19 06:20 Carbon Dioxide 28.5 mmol/L (21.0-32.0) 03/23/19 06:20 BUN 38 mg/dL (7.0-18.0) H 03/23/19 06:20 Creatinine 1.0 mg/dL (0.6-1.0) 03/23/19 06:20 Est Cr Clr Drug Dosing 31.55 mL/min 03/23/19 06:20 Estimated GFR (MDRD) 52.2 ml/min 03/23/19 06:20 Glucose 73 mg/dL (74-106) L 03/23/19 06:20 Calcium 8.8 mg/dL (8.5-10.1) 03/23/19 06:20 Total Bilirubin 0.4 mg/dL (0.2-1.0) 03/22/19 22:10 AST 13 IU/L (15-37) L 03/22/19 22:10 ALT 13 IU/L (14-63) L 03/22/19 22:10 Alkaline Phosphatase 58 U/L (46-116) 03/22/19 22:10 Total Protein 6.5 g/dL (6.4-8.2) 03/22/19 22:10 Albumin 3.6 g/dL (3.4-5.0) 03/22/19 22:10 Globulin 2.9 g/dL (2.6-4.0) 03/22/19 22:10 Albumin/Globulin Ratio 1.2 (0.9-1.6) 03/22/19 22:10 Amylase 38 U/L (25-115) 03/22/19 22:10 Lipase 150 U/L (73-393) 03/22/19 22:10 Urine Color YELLOW 03/23/19 00:30 Urine Appearance SLT CLOUDY 03/23/19 00:30 Urine pH 7.0 (5.0-8.0) 03/23/19 00:30 Ur Specific [place] 1.010 (1.001-1.035) 03/23/19 00:30 Urine Protein NEGATIVE mg/dL (NEGATIVE) 03/23/19 00:30 Urine Glucose (UA) NEGATIVE mg/dL (NEGATIVE) 03/23/19 00:30 Urine Ketones TRACE mg/dL (NEGATIVE) H 03/23/19 00:30 Urine Occult Blood TRACE-INTACT (NEGATIVE) H 03/23/19 00:30 Urine Nitrite NEGATIVE (NEGATIVE) 03/23/19 00:30 Urine Bilirubin NEGATIVE (NEGATIVE) 03/23/19 00:30 Urine Urobilinogen 0.2 EU/dL (<2.0) 03/23/19 00:30 Ur Leukocyte Esterase TRACE (NEGATIVE) H 03/23/19 00:30 Urine RBC 2-4 (0-2/HPF) 03/23/19 00:30 Urine WBC 1-4 (0-5/HPF) 03/23/19 00:30 Ur Epithelial Cells OCCASIONAL (NONE-FEW) 03/23/19 00:30 Urine Bacteria FEW (NEGATIVE) 03/23/19 00:30 Blood Type A POSITIVE 03/22/19 22:50 Antibody Screen NEGATIVE 03/22/19 22:50 - Allergies Allergies/Adverse Reactions: Allergies Allergy/AdvReac Type Severity Reaction Status Date / Time candesartan [From Atacand] Allergy Hallucinati Verified 03/22/19 22:18 ons enalaprilat [From Vasotec] Allergy Hallucinati Verified 03/22/19 22:18 ons lisinopril Allergy Hallucinati Verified 03/22/19 22:18 ons morphine Allergy Hallucinati Verified 03/22/19 22:18 ons propoxyphene Allergy Hallucinati Verified 03/22/19 22:18 [From Darvocet-N] ons tramadol Allergy Hallucinati Verified 03/22/19 22:18 ons - Blood Blood Available: Yes Product(s) Available: PRBC - Anesthesia Plan Pre-Op Medication Ordered: None - Acknowledgements Anesthesia Type Planned: MAC Pt an Appropriate Candidate for the Planned Anesthesia: Yes Alternatives and Risks of Anesthesia Discussed w Pt/Guardian: Yes Pt/Guardian Understands and Agrees with Anesthesia Plan: Yes Additional Comments: Will use very light sedation with Propofol. Discussed condition with daughter. 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: Musculoskeletal History: Reports: None Neurological History: Reports: TIA, Other (See Below) Other Neuro History: Brain bleed Psychiatric History: Reports: None Endocrine/Metabolic History: Reports: None Hematologic History: Reports: None Immunologic History: Reports: None Oncologic (Cancer) History: Reports: None Dermatologic History: Reports: None - Infectious Disease History Infectious Disease History: Reports: Chicken Pox, Measles - Past Surgical History Head Surgeries/Procedures: Reports: None HEENT Surgical History: Reports: None Cardiovascular Surgical History: Reports: None Respiratory Surgical History: Reports: None GI Surgical History: Reports: None Female Surgical History: Reports: None Endocrine Surgical History: Reports: None Neurological Surgical History: Reports: None Musculoskeletal Surgical History: Reports: Hip Replacement, Joint Replacement, Knee Replacement, Shoulder Replacement Other Musculoskeletal Surgeries/Procedures:: bilat shoulder, bilat knee, r hip Oncologic Surgical History: Reports: None Dermatological Surgical History: Reports: None - SUBSTANCE USE Smoking Status *Q: Former Smoker Recreational Drug Use History: No - HOME MEDS Home Medications: Home Meds Acetaminophen 1,000 mg PO BID PRN 06/25/17 [History] Aspirin 325 mg PO BEDTIME 06/25/17 [History] Budesonide/Formoterol [Symbicort 80-4.5 MCG] 6.9 gm INH ASDIRECTED 06/25/17 [ History] Furosemide 20 mg PO DAILY 06/25/17 [History] Losartan [Cozaar] 50 mg PO BID 06/25/17 [History] Multivitamin [Multivitamins] 1 tab PO DAILY 06/25/17 [History] Potassium Chloride 10 meq PO BID 06/25/17 [History] atorvaSTATin [Lipitor] 20 mg PO BEDTIME 06/25/17 [History] Metoprolol Tartrate 50 mg PO BID 12/18/17 [History] Bisacodyl 10 mg RECTAL ASDIRECTED 03/22/19 [History] Diclofenac Sodium [Voltaren 1% Gel] 100 gm TOP ASDIRECTED 03/22/19 [History] Polyethylene Glycol 3350 [MiraLAX] 17 gm PO ASDIRECTED 03/22/19 [History] Psyllium Husk 3.4 gm PO ASDIRECTED 03/22/19 [History] levETIRAcetam [Keppra] 500 mg PO BID 03/22/19 [History] - CURRENT (IN HOUSE) MEDS Current Meds: Current Medications Bisacodyl (Dulcolax) 10 mg RECTAL DAILY [facility] Sodium Chloride (Normal Saline) 500 mls @ 999 mls/hr IV STAT [facility] Last Admin: 03/23/19 00:36 Dose: 999 mls/hr Sodium Chloride (Normal Saline) 1,000 mls @ 75 mls/hr IV ASDIRECTED [facility] Last Admin: 03/23/19 01:27 Dose: 75 mls/hr Pantoprazole Sodium 40 mg/ (Sodium Chloride) 10 mls @ 200 mls/hr IV Q24H [facility] Ceftriaxone Sodium/Dextrose 1 (gm/ Premix) 50 mls @ 100 mls/hr IV Q24H [facility] Sodium Chloride (Saline Flush) 10 ml FLUSH ASDIRECTED PRN PRN Reason: Keep Vein Open Last Admin: 03/23/19 01:27 Dose: 10 ml Sodium Chloride (Saline Flush) 2.5 ml FLUSH ASDIRECTED PRN PRN Reason: Keep Vein Open Last Admin: 03/23/19 01:27 Dose: 2.5 ml Discontinued Medications Sodium Chloride (Normal Saline) Confirm Administered Dose 20 mls @ as directed .ROUTE .STK-MED ONE Stop: 03/22/19 23:00 Last Admin: 03/22/19 23:00 Dose: 20 mls/hr Pantoprazole Sodium 80 mg/ (Sodium Chloride) 100 mls @ 10 mls/hr IV .Continuous [facility] Last Admin: 03/23/19 01:27 Dose: 10 mls/hr Influenza Virus Vaccine (Fluzone High-Dose Syringe) 180 mcg IM .ONCE ONE Stop: 03/23/19 10:01 Ondansetron HCl (Zofran) 4 mg IVPUSH ONETIME ONE Stop: 03/22/19 22:47 Last Admin: 03/22/19 23:00 Dose: 4 mg Pantoprazole Sodium (Protonix Iv) 80 mg IVPUSH .BOLUS ONE Stop: 03/22/19 22:47 Last Admin: 03/22/19 23:00 Dose: 80 mg
[2019-03-23] MEDS ORDERED: Propofol 200 MG/20 ML SDV ONE (12:10)
--- NOTE | 2019-03-23 12:31 | PCM.OPNOTE ---
- General Post-Op/Procedure Note Date of Surgery/Procedure: 03/23/19 Operative Procedure(s): Diagnostic EGD with biopsy Findings: Ulcer at the pylorus with fibrinous plaque, small superficial ulcers in the more proximal antrum Pre Op Diagnosis: GI bleed Post-Op Diagnosis: Peptic ulcer disease Anesthesia Technique: [facility] – [place] Primary Surgeon: Rossy Ayala Condition: Stable Free Text/Narrative:: Intake & Output 03/22/19 03/23/19 03/23/19 22:59 06:59 14:59 Intake Total 0 Balance 0
--- NOTE | 2019-03-23 12:34 | PCM.CONS ---
H&P History of Present Illness - General Date of Service: 03/23/19 Admit Problem/Dx: Admission Diagnosis/Problem Admission Diagnosis/Problem Hematemesis Source of Information: Family, Provider History Limitations: Reports: Other (Pleasantly demented ) - History of Present Illness Initial Comments - Free Text/Narative: Patient is a 88 year old brought in by family last night for hematemesis. She complained of epigastric pain then had a bought of vomiting. There were blood clots in her vomit. Her PMHx is significant for atrial fibrillation, HTN and TIA. She does take aspirin. When I asked the patient for more information she was unable to give me further details. She would talk in tangents and never address the questions I had asked. I visited with her daughter and the medicine provider for the remainder of the history. She had a Hgb of 12 on admission and after fluids it decreased to 8. She had an abdominal XR that showed a large amount of stool in the colon but otherwise normal. She was admitted overnight for close monitoring. No further hematemesis. Does not complain of abdominal pain this morning. No BMs since admission. - Related Data Allergies/Adverse Reactions: Allergies Allergy/AdvReac Type Severity Reaction Status Date / Time candesartan [From Atacand] Allergy Hallucinati Verified 03/22/19 22:18 ons enalaprilat [From Vasotec] Allergy Hallucinati Verified 03/22/19 22:18 ons lisinopril Allergy Hallucinati Verified 03/22/19 22:18 ons morphine Allergy Hallucinati Verified 03/22/19 22:18 ons propoxyphene Allergy Hallucinati Verified 03/22/19 22:18 [From Darvocet-N] ons tramadol Allergy Hallucinati Verified 03/22/19 22:18 ons Home Medications: Home Meds Acetaminophen 1,000 mg PO BID PRN 06/25/17 [History] Aspirin 325 mg PO BEDTIME 06/25/17 [History] Budesonide/Formoterol [Symbicort 80-4.5 MCG] 6.9 gm INH ASDIRECTED 06/25/17 [ History] Furosemide 20 mg PO DAILY 06/25/17 [History] Losartan [Cozaar] 50 mg PO BID 06/25/17 [History] Multivitamin [Multivitamins] 1 tab PO DAILY 06/25/17 [History] Potassium Chloride 10 meq PO BID 06/25/17 [History] atorvaSTATin [Lipitor] 20 mg PO BEDTIME 06/25/17 [History] Metoprolol Tartrate 50 mg PO BID 12/18/17 [History] Bisacodyl 10 mg RECTAL ASDIRECTED 03/22/19 [History] Diclofenac Sodium [Voltaren 1% Gel] 100 gm TOP ASDIRECTED 03/22/19 [History] Polyethylene Glycol 3350 [MiraLAX] 17 gm PO ASDIRECTED 03/22/19 [History] Psyllium Husk 3.4 gm PO ASDIRECTED 03/22/19 [History] levETIRAcetam [Keppra] 500 mg PO BID 03/22/19 [History] Past Medical History HEENT History: Reports: Hard of Hearing, Impaired Vision, Other (See Below) Other HEENT History: nasal polyps, wears glasses, upper dentures-not with pt Cardiovascular History: Reports: Afib, High Cholesterol, Other (See Below) Other Cardiovascular History: Enlagred heart Respiratory History: Reports: None Gastrointestinal History: Reports: None Genitourinary History: Reports: Urinary Incontinence [employer] History: Reports: Musculoskeletal History: Reports: None Neurological History: Reports: TIA, Other (See Below) Other Neuro History: Brain bleed Psychiatric History: Reports: None Endocrine/Metabolic History: Reports: None Hematologic History: Reports: None Immunologic History: Reports: None Oncologic (Cancer) History: Reports: None Dermatologic History: Reports: None - Infectious Disease History Infectious Disease History: Reports: Chicken Pox, Measles - Past Surgical History Head Surgeries/Procedures: Reports: None HEENT Surgical History: Reports: None Cardiovascular Surgical History: Reports: None Respiratory Surgical History: Reports: None GI Surgical History: Reports: None Female Surgical History: Reports: Hysterectomy Endocrine Surgical History: Reports: None Neurological Surgical History: Reports: None Musculoskeletal Surgical History: Reports: Hip Replacement, Joint Replacement, Knee Replacement, Shoulder Replacement Other Musculoskeletal Surgeries/Procedures:: bilat shoulder, bilat knee, r hip Oncologic Surgical History: Reports: None Dermatological Surgical History: Reports: None Social & Family History - Family History Family Medical History: Noncontributory - Tobacco Use Smoking Status *Q: Former Smoker Used Tobacco, but Quit: Yes Month/Year Tobacco Last Used: 1979 - Caffeine Use Caffeine Use: Reports: Coffee Caffeine Use Comment: 1 cup - Recreational Drug Use Recreational Drug Use: No H&P Review of Systems - Review of Systems: Review Of Systems: ROS reveals no pertinent complaints other than HPI. Exam - Exam Exam: See Below - Vital Signs Vital Signs: Last Vital Signs Temp 36.3 C 03/23/19 08:00 Pulse 78 03/23/19 08:00 Resp 18 03/23/19 08:00 BP 138/66 03/23/19 08:00 Pulse Ox 96 03/23/19 08:00 Weight: 64.41 kg - Exam General: Alert HEENT: Conjunctiva Clear, Mucosa Moist & [place], Posterior Pharynx Clear Lungs: Clear to Auscultation, Normal Respiratory Effort Cardiovascular: Regular Rate, Regular Rhythm GI/Abdominal Exam: Soft, Non-Tender, No Distention, No Mass Extremities: Normal Inspection Skin: Warm, Dry, Intact Psychiatric: Alert, Normal Affect, Normal Mood - Patient Data Lab Results Last 24 hrs: Laboratory Results - last 24 hr 03/22/19 03/22/19 03/22/19 Range/Units 22:10 22:10 22:10 WBC 6.69 (4.0-11.0) K/uL RBC 3.27 L (4.30-5.90) M/uL Hgb 10.3 L (12.0-16.0) g/dL Hct 32.3 L (36.0-46.0) % MCV 98.8 H (80.0-98.0) fL MCH 31.5 (27.0-32.0) pg MCHC 31.9 (31.0-37.0) g/dL RDW Std Deviation 49.0 (28.0-62.0) fl RDW Coeff of Rosalinda 14 (11.0-15.0) % Plt Count 186 (150-400) K/uL MPV 9.10 (7.40-12.00) fL Neut % (Auto) 53.4 (48.0-80.0) % Lymph % (Auto) 34.1 (16.0-40.0) % Lake % (Auto) 6.9 (0.0-15.0) % Eos % (Auto) 4.9 (0.0-7.0) % Baso % (Auto) 0.7 (0.0-1.5) % Neut # (Auto) 3.6 (1.4-5.7) K/uL Lymph # (Auto) 2.3 (0.6-2.4) K/uL Lake # (Auto) 0.5 (0.0-0.8) K/uL Eos # (Auto) 0.3 (0.0-0.7) K/uL Baso # (Auto) 0.1 (0.0-0.1) K/uL Nucleated RBC % 0.0 /100WBC Nucleated RBCs # 0 K/uL INR 1.16 Sodium 144 (136-145) mmol/L Potassium 4.1 (3.5-5.1) mmol/L Chloride 107 (98-107) mmol/L Carbon Dioxide 30.1 (21.0-32.0) mmol/L BUN 36 H (7.0-18.0) mg/dL Creatinine 1.0 (0.6-1.0) mg/dL Est Cr Clr Drug Dosing 30.16 mL/min Estimated GFR (MDRD) 52.2 ml/min Glucose 108 H (74-106) mg/dL Calcium 8.7 (8.5-10.1) mg/dL Total Bilirubin 0.4 (0.2-1.0) mg/dL AST 13 L (15-37) IU/L ALT 13 L (14-63) IU/L Alkaline Phosphatase 58 (46-116) U/L Total Protein 6.5 (6.4-8.2) g/dL Albumin 3.6 (3.4-5.0) g/dL Globulin 2.9 (2.6-4.0) g/dL Albumin/Globulin Ratio 1.2 (0.9-1.6) Amylase 38 (25-115) U/L Lipase 150 (73-393) U/L Urine Color Urine Appearance Urine pH (5.0-8.0) Ur Specific [place] (1.001-1.035) Urine Protein (NEGATIVE) mg/dL Urine Glucose (UA) (NEGATIVE) mg/dL Urine Ketones (NEGATIVE) mg/dL Urine Occult Blood (NEGATIVE) Urine Nitrite (NEGATIVE) Urine Bilirubin (NEGATIVE) Urine Urobilinogen (<2.0) EU/dL Ur Leukocyte Esterase (NEGATIVE) Urine RBC (0-2/HPF) Urine WBC (0-5/HPF) Ur Epithelial Cells (NONE-FEW) Urine Bacteria (NEGATIVE) Blood Type Antibody Screen 03/22/19 03/23/19 03/23/19 Range/Units 22:50 00:30 06:20 WBC 4.95 (4.0-11.0) K/uL RBC 2.72 L (4.30-5.90) M/uL Hgb 8.4 L (12.0-16.0) g/dL Hct 26.4 L (36.0-46.0) % MCV 97.1 (80.0-98.0) fL MCH 30.9 (27.0-32.0) pg MCHC 31.8 (31.0-37.0) g/dL RDW Std Deviation 47.2 (28.0-62.0) fl RDW Coeff of Rosalinda 13 (11.0-15.0) % Plt Count 151 (150-400) K/uL MPV 9.00 (7.40-12.00) fL Neut % (Auto) 51.9 (48.0-80.0) % Lymph % (Auto) 39.0 (16.0-40.0) % Lake % (Auto) 5.9 (0.0-15.0) % Eos % (Auto) 2.6 (0.0-7.0) % Baso % (Auto) 0.6 (0.0-1.5) % Neut # (Auto) 2.6 (1.4-5.7) K/uL Lymph # (Auto) 1.9 (0.6-2.4) K/uL Lake # (Auto) 0.3 (0.0-0.8) K/uL Eos # (Auto) 0.1 (0.0-0.7) K/uL Baso # (Auto) 0.0 (0.0-0.1) K/uL Nucleated RBC % 0.0 /100WBC Nucleated RBCs # 0 K/uL INR Sodium (136-145) mmol/L Potassium (3.5-5.1) mmol/L Chloride (98-107) mmol/L Carbon Dioxide (21.0-32.0) mmol/L BUN (7.0-18.0) mg/dL Creatinine (0.6-1.0) mg/dL Est Cr Clr Drug Dosing mL/min Estimated GFR (MDRD) ml/min Glucose (74-106) mg/dL Calcium (8.5-10.1) mg/dL Total Bilirubin (0.2-1.0) mg/dL AST (15-37) IU/L ALT (14-63) IU/L Alkaline Phosphatase (46-116) U/L Total Protein (6.4-8.2) g/dL Albumin (3.4-5.0) g/dL Globulin (2.6-4.0) g/dL Albumin/Globulin Ratio (0.9-1.6) Amylase (25-115) U/L Lipase (73-393) U/L Urine Color YELLOW Urine Appearance SLT CLOUDY Urine pH 7.0 (5.0-8.0) Ur Specific [place] 1.010 (1.001-1.035) Urine Protein NEGATIVE (NEGATIVE) mg/dL Urine Glucose (UA) NEGATIVE (NEGATIVE) mg/dL Urine Ketones TRACE H (NEGATIVE) mg/dL Urine Occult Blood TRACE-INTACT H (NEGATIVE) Urine Nitrite NEGATIVE (NEGATIVE) Urine Bilirubin NEGATIVE (NEGATIVE) Urine Urobilinogen 0.2 (<2.0) EU/dL Ur Leukocyte Esterase TRACE H (NEGATIVE) Urine RBC 2-4 (0-2/HPF) Urine WBC 1-4 (0-5/HPF) Ur Epithelial Cells OCCASIONAL (NONE-FEW) Urine Bacteria FEW (NEGATIVE) Blood Type A POSITIVE Antibody Screen NEGATIVE 03/23/19 Range/Units 06:20 WBC (4.0-11.0) K/uL RBC (4.30-5.90) M/uL Hgb (12.0-16.0) g/dL Hct (36.0-46.0) % MCV (80.0-98.0) fL MCH (27.0-32.0) pg MCHC (31.0-37.0) g/dL RDW Std Deviation (28.0-62.0) fl RDW Coeff of Rosalinda (11.0-15.0) % Plt Count (150-400) K/uL MPV (7.40-12.00) fL Neut % (Auto) (48.0-80.0) % Lymph % (Auto) (16.0-40.0) % Lake % (Auto) (0.0-15.0) % Eos % (Auto) (0.0-7.0) % Baso % (Auto) (0.0-1.5) % Neut # (Auto) (1.4-5.7) K/uL Lymph # (Auto) (0.6-2.4) K/uL [place] # (Auto) (0.0-0.8) K/uL Eos # (Auto) (0.0-0.7) K/uL Baso # (Auto) (0.0-0.1) K/uL Nucleated RBC % /100WBC Nucleated RBCs # K/uL INR Sodium 145 (136-145) mmol/L Potassium 4.1 (3.5-5.1) mmol/L Chloride 110 H (98-107) mmol/L Carbon Dioxide 28.5 (21.0-32.0) mmol/L BUN 38 H (7.0-18.0) mg/dL Creatinine 1.0 (0.6-1.0) mg/dL Est Cr Clr Drug Dosing 31.55 mL/min Estimated GFR (MDRD) 52.2 ml/min Glucose 73 L (74-106) mg/dL Calcium 8.8 (8.5-10.1) mg/dL Total Bilirubin (0.2-1.0) mg/dL AST (15-37) IU/L ALT (14-63) IU/L Alkaline Phosphatase (46-116) U/L Total Protein (6.4-8.2) g/dL Albumin (3.4-5.0) g/dL Globulin (2.6-4.0) g/dL Albumin/Globulin Ratio (0.9-1.6) Amylase (25-115) U/L Lipase (73-393) U/L Urine Color Urine Appearance Urine pH (5.0-8.0) Ur Specific [place] (1.001-1.035) Urine Protein (NEGATIVE) mg/dL Urine Glucose (UA) (NEGATIVE) mg/dL Urine Ketones (NEGATIVE) mg/dL Urine Occult Blood (NEGATIVE) Urine Nitrite (NEGATIVE) Urine Bilirubin (NEGATIVE) Urine Urobilinogen (<2.0) EU/dL Ur Leukocyte Esterase (NEGATIVE) Urine RBC (0-2/HPF) Urine WBC (0-5/HPF) Ur Epithelial Cells (NONE-FEW) Urine Bacteria (NEGATIVE) Blood Type Antibody Screen Result Diagrams: 03/23/19 06:20 03/23/19 06:20 Consult PN Assessment/Plan Procedures: Procedures AIRWAY INHALATION TREATMENT (07/15/17) ASSAY OF AMMONIA (08/20/17) ASSAY OF MAGNESIUM (08/20/17) ASSAY OF TROPONIN QUANT (01/31/18) BLOOD CULTURE FOR BACTERIA (08/20/17) CARDIOVASCULAR STRESS TEST (12/04/17) CAT SCAN FOLLOW-UP STUDY (02/01/18) COMPLETE CBC W/AUTO DIFF WBC (02/09/18) COMPREHEN METABOLIC PANEL (02/09/18) CT HEAD/BRAIN W/O DYE (02/09/18) CT NECK SPINE W/O DYE (02/09/18) DRUG TEST PRSMV DIR OPT OBS (08/20/17) ELECTROCARDIOGRAM TRACING (02/09/18) EMERGENCY DEPT VISIT (02/09/18) EMERGENCY DEPT VISIT (07/15/17) HT MUSCLE IMAGE SPECT MULT (12/04/17) HYDRATION IV INFUSION INIT (08/20/17) INFLUENZA ASSAY W/OPTIC (07/15/17) LIPID PANEL (08/20/17) METABOLIC PANEL TOTAL CA (08/20/17) MICROBE SUSCEPTIBLE AUGUSTO (01/31/18) MRI BRAIN STEM W/O & W/DYE (08/20/17) PROTHROMBIN TIME (02/09/18) PT EVAL LOW COMPLEX 20 MIN (08/20/17) ROUTINE VENIPUNCTURE (02/09/18) THER/PROPH/DIAG INJ IV PUSH (06/25/17) THER/PROPH/DIAG INJ SC/IM (12/18/17) THER/PROPH/DIAG IV INF INIT (12/18/17) TX/PRO/DX INJ NEW DRUG ADDON (12/18/17) URINALYSIS AUTO W/SCOPE (01/31/18) URINE BACTERIA CULTURE (01/31/18) URINE CULTURE/COLONY COUNT (01/31/18) X-RAY EXAM CHEST 1 VIEW (02/09/18) X-RAY EXAM CHEST 2 VIEWS (07/15/17) X-RAY EXAM OF KNEE 3 (06/25/17) X-RAY EXAM OF PELVIS (02/09/18) X-RAY EXAM OF SHOULDER (02/09/18) (1) PUD (peptic ulcer disease) SNOMED Code(s): 39397977 Code(s): K27.9 - PEPTIC ULC, SITE UNSP, UNSP AC OR CHR, W/O HEMOR OR PERF Current Visit: Yes Problem List Initiated/Reviewed/Updated: Yes Plan: Patient and her daughter were consented for a diagnostic EGD with biopsy. I explained the procedure, expected perioperative course and risks including bleeding or perforation. The daughter consented and signed the forms. She was taken to the OR and found to have a larger ulcer at the pylorus and a couple superficial ulcers in the antrum of her stomach. There was no evidence of bleeding. Rechecking hemoglobin in the PACU. Patient can advance diet as tolerated. Continue to monitor hemoglobin every 8 hours. Can switch to oral PPI. Would add scheduled carafate/sucralfate QID AC and before bed. If no further signs of bleeding and hemoglobin stays stable ok to discharge home tomorrow with 2 week follow up in my clinic. Remainder of cares per primary team.
--- NOTE | 2019-03-23 12:52 | PCM.POSTAN ---
POST ANESTHESIA ASSESSMENT - MENTAL STATUS Mental Status: Alert - VITAL SIGNS Vital Signs: Last Vital Signs Temp 36.7 C 03/23/19 12:33 Pulse 79 03/23/19 12:45 Resp 14 03/23/19 12:45 BP 135/66 03/23/19 12:45 Pulse Ox 98 03/23/19 12:45 - RESPIRATORY Respiratory Status: Respiratory Rate WNL - CARDIOVASCULAR CV Status: Pulse Rate WNL, Other - GASTROINTESTINAL GI Status: No Symptoms - PAIN Pain Score: 0 - POST OP HYDRATION Hydration Status: Adequate & Stable - OBSERVATIONS Free Text/Narrative:: Doing well. Remains in Afib. VSS. Sa02's good on room air. Ready for transfer back to floor.
--- NOTE | 2019-03-23 13:24 | OR ---
SURGEON: ROSSY AYALA MD DATE OF PROCEDURE: 03/23/2019 PREOPERATIVE DIAGNOSIS: Hematemesis. POSTOPERATIVE DIAGNOSIS: Peptic ulcer disease. PROCEDURE PERFORMED: Diagnostic esophagogastroduodenoscopy with biopsy. PRIMARY SURGEON: Rossy Ayala MD. ANESTHESIA: MAC. INSTRUMENT USED: Olympus endoscope. EXTENT OF EXAM: To the second portion of duodenum. PREPARATION: Good. LIMITATIONS: None. INDICATIONS: The patient is an 88-year-old female who presented with hematemesis to the emergency room. Her hemoglobin overnight dropped from 12 down to 8. Given these findings, the decision was made to proceed with a diagnostic EGD with biopsy. I explained the procedure to the patient and her daughter. I explained the expected perioperative course and risks including bleeding or perforation. They verbalized understanding and wished to proceed. PROCEDURE IN DETAIL: The patient was brought into the OR and placed on the OR cart in a beach chair position. A time-out was completed verifying the patient's name, age, date of , allergies, and procedure to be performed. A bite block was placed in the patient's mouth. Monitored anesthesia care was induced and continuous oxygen was provided via nasal cannula throughout the procedure. After adequate sedation was achieved, a well-lubricated endoscope was placed in the patient's mouth and advanced under direct visualization to the second portion of duodenum. This appeared normal and a photograph was taken. The scope was then fully withdrawn while examining the color, texture, anatomy, and integrity of the mucosa of the upper GI tract. The patient was noted to have an ulcer at the entrance to the pylorus. This had a fibrinous exudate on the top and no signs of recent bleed. A photograph of this was taken. The patient also had some areas of superficial ulceration in the antrum as well. Photographs of these were taken. The scope was retroflexed and photograph was taken of the pylorus which appeared grossly normal. The remainder of the stomach appeared normal. However, biopsies were taken of the gastric, antrum, body, and fundus, and sent for histologic review and H. pylori testing. The scope was brought into the distal esophagus and a photograph taken of the Z-line. The patient appeared to have a very small hiatal hernia. The remainder of the esophageal mucosa appeared free of pathology. The scope was removed and the procedure terminated. The patient tolerated the procedure well and was transferred to the PACU in stable condition. ENDOSCOPIC DIAGNOSIS: Peptic ulcer disease. RECOMMENDATIONS: The patient can be transitioned over to oral PPIs and her diet advance as tolerated. She will start Carafate scheduled. We will continue to monitor closely while in-house. KJ BUTLER /[id number]
[2019-03-23] MEDS ORDERED: Polyethylene Glycol 3350 Powder 17 GM Packet PO PRN (13:33)
[2019-03-23] MEDS: cefTRIAXone 1 GM in Premix Bag 1 BAG IV SCH (14:14)
[2019-03-23] MEDS: Sucralfate Suspension 1 GM/10 ML Cup PO SCH ×2 (17:34→20:39)
[2019-03-24 06:06] LABS: POTASSIUM,K 3.7 mmol/L (3.5-5.1)
--- NOTE | 2019-03-24 07:25 | PCM48HPAN ---
Post Anesthesia Note - EVALUATION WITHIN 48HRS OF ANESTHETIC Vital Signs in Normal Range: Yes Patient Participated in Evaluation: Yes Respiratory Function Stable: Yes Airway Patent: Yes Cardiovascular Function Stable: Yes Hydration Status Stable: Yes Pain Control Satisfactory: Yes Nausea and Vomiting Control Satisfactory: Yes Mental Status Recovered: Yes Vital Signs: Last Vital Signs Temp 36.3 C 03/24/19 04:00 Pulse 87 03/24/19 04:00 Resp 19 03/24/19 04:00 BP 127/70 03/24/19 04:00 Pulse Ox 95 03/24/19 04:00 - COMMENTS/OBSERVATIONS Free Text/Narrative:: Doing well. VSS. No problems noted post.
[2019-03-24] MEDS: Sucralfate Suspension 1 GM/10 ML Cup PO SCH ×2 (07:47→11:38)
[2019-03-24] MEDS ORDERED: Pantoprazole 40 MG Tab.CR PO SCH (09:00)
[2019-03-24] MEDS: cefTRIAXone 1 GM in Premix Bag 1 BAG IV SCH ×2 (10:17→10:24)
[2019-03-24] MEDS: Bisacodyl 10 MG Supp RECTAL SCH ×2 (10:18→10:19)
--- NOTE | 2019-03-24 10:51 | PCM.DCSUM1 ---
<Ruperto Jefferson - Last Filed: 03/24/19 13:26> Discharge Summary - Hospital Course Free Text/Narrative:: 88 y/o female with history of Afib on aspirin who presented to the ER complaining of hematemesis. Per daughter, the patient had vomited dark clots of blood. She was admitted for suspected hematemesis. She did not have further episodes of vomiting white in the hospital. In addition, imaging showed she had significant stool in her colon. Dr. Ayala, general surgery was consulted who performed an upper endoscopy which showed 2 superficial ulcers in her stomach. No active bleeding. Her hemoglobin remained stable during this hospitalization. Enema was performed which resolved her constipation. Hemoccult was negative. She was found to have a UTI and started on ceftriaxone. She was discharged home on omeprazole, carafate, and bactrim. She will need to follow-up with Dr. Ayala as outpatient. - Discharge Data Discharge Date: 03/24/19 Discharge Disposition: Home, Self-Care 01 Condition: Good - Referral to Home Health Primary Care Physician: Bradley Palma MD - Patient Summary/Data Operative Procedure(s) Performed: Diagnostic EGD with biopsy Consults: Consultations 03/23/19 09:43 Consult to Physician [CONS] Routine - Patient Instructions Diet: Regular Diet as Tolerated Activity: As Tolerated Notify Provider of: Fever, Increased Pain, Swelling and Redness, Nausea and/or Vomiting - Discharge Plan Prescriptions/Med Rec: Omeprazole 20 mg PO DAILY #30 capsule. Sucralfate [Carafate] 1 gm PO QIDACANDBED #30 cup Sulfamethoxazole/Trimethoprim [Bactrim Ds Tablet] 1 each PO BID 3 Days #6 tablet Home Medications: Home Meds Acetaminophen 1,000 mg PO BID PRN 06/25/17 [History] Aspirin 325 mg PO BEDTIME 06/25/17 [History] Budesonide/Formoterol [Symbicort 80-4.5 MCG] 6.9 gm INH ASDIRECTED 06/25/17 [ History] Furosemide 20 mg PO DAILY 06/25/17 [History] Losartan [Cozaar] 50 mg PO BID 06/25/17 [History] Multivitamin [Multivitamins] 1 tab PO DAILY 06/25/17 [History] Potassium Chloride 10 meq PO BID 06/25/17 [History] atorvaSTATin [Lipitor] 20 mg PO BEDTIME 06/25/17 [History] Metoprolol Tartrate 50 mg PO BID 12/18/17 [History] Bisacodyl 10 mg RECTAL ASDIRECTED 03/22/19 [History] Diclofenac Sodium [Voltaren 1% Gel] 100 gm TOP ASDIRECTED 03/22/19 [History] Polyethylene Glycol 3350 [MiraLAX] 17 gm PO ASDIRECTED 03/22/19 [History] Psyllium Husk 3.4 gm PO ASDIRECTED 03/22/19 [History] levETIRAcetam [Keppra] 500 mg PO BID 03/22/19 [History] Omeprazole 20 mg PO DAILY #30 capsule. 03/24/19 [Rx] Sucralfate [Carafate] 1 gm PO QIDACANDBED #30 cup 03/24/19 [Rx] Sulfamethoxazole/Trimethoprim [Bactrim Ds Tablet] 1 each PO BID 3 Days #6 tablet 03/24/19 [Rx] Patient Handouts: Hematemesis, Peptic Ulcer, [id number], Sucralfate tablets, Sulfamethoxazole; Trimethoprim, SMX-TMP tablets, Omeprazole tablets (OTC) Referrals: [facility] [Outside] Rossy Ayala MD [Physician] - 04/04/19 10:30 am Bradley Palma MD [Primary Care Provider] - 04/01/19 3:15 pm - Discharge Summary/Plan Comment DC Time >30 min.: No - Patient Data Vitals - Most Recent: Last Vital Signs Temp 36.2 C 03/24/19 07:43 Pulse 86 03/24/19 07:43 Resp 18 03/24/19 07:43 BP 150/70 H 03/24/19 07:43 Pulse Ox 95 03/24/19 07:43 Weight - Most Recent: 64.41 kg I&O - Last 24 hours: Intake & Output 03/23/19 03/24/19 03/24/19 22:59 06:59 14:59 Intake Total 192 660 Output Total 200 420 Balance -8 240 Lab Results - Last 24 hrs: Laboratory Results - last 24 hr 03/23/19 03/23/19 03/24/19 Range/Units 12:59 22:06 05:05 WBC 4.17 (4.0-11.0) K/uL RBC 2.38 L (4.30-5.90) M/uL Hgb 8.2 L 9.0 L 8.3 L (12.0-16.0) g/dL Hct 26.0 L 28.3 L 23.5 L (36.0-46.0) % MCV 98.7 H (80.0-98.0) fL MCH 34.9 H (27.0-32.0) pg MCHC 35.3 (31.0-37.0) g/dL RDW Std Deviation 49.5 (28.0-62.0) fl RDW Coeff of Rosalinda 14 (11.0-15.0) % Plt Count 215 (150-400) K/uL MPV 10.60 (7.40-12.00) fL Neut % (Auto) 52.5 (48.0-80.0) % Lymph % (Auto) 32.4 (16.0-40.0) % Lyman % (Auto) 8.6 (0.0-15.0) % Eos % (Auto) 6.0 (0.0-7.0) % Baso % (Auto) 0.5 (0.0-1.5) % Neut # (Auto) 2.2 (1.4-5.7) K/uL Lymph # (Auto) 1.4 (0.6-2.4) K/uL Lyman # (Auto) 0.4 (0.0-0.8) K/uL Eos # (Auto) 0.3 (0.0-0.7) K/uL Baso # (Auto) 0.0 (0.0-0.1) K/uL Nucleated RBC % 0.0 /100WBC Nucleated RBCs # 0 K/uL Sodium (136-145) mmol/L Potassium (3.5-5.1) mmol/L Chloride (98-107) mmol/L Carbon Dioxide (21.0-32.0) mmol/L BUN (7.0-18.0) mg/dL Creatinine (0.6-1.0) mg/dL Est Cr Clr Drug Dosing mL/min Estimated GFR (MDRD) ml/min Glucose (74-106) mg/dL Calcium (8.5-10.1) mg/dL Total Bilirubin (0.2-1.0) mg/dL AST (15-37) IU/L ALT (14-63) IU/L Alkaline Phosphatase (46-116) U/L Total Protein (6.4-8.2) g/dL Albumin (3.4-5.0) g/dL Globulin (2.6-4.0) g/dL Albumin/Globulin Ratio (0.9-1.6) 03/24/19 Range/Units 05:05 WBC (4.0-11.0) K/uL RBC (4.30-5.90) M/uL Hgb (12.0-16.0) g/dL Hct (36.0-46.0) % MCV (80.0-98.0) fL MCH (27.0-32.0) pg MCHC (31.0-37.0) g/dL RDW Std Deviation (28.0-62.0) fl RDW Coeff of Rosalinda (11.0-15.0) % Plt Count (150-400) K/uL MPV (7.40-12.00) fL Neut % (Auto) (48.0-80.0) % Lymph % (Auto) (16.0-40.0) % Lyman % (Auto) (0.0-15.0) % Eos % (Auto) (0.0-7.0) % Baso % (Auto) (0.0-1.5) % Neut # (Auto) (1.4-5.7) K/uL Lymph # (Auto) (0.6-2.4) K/uL Lyman # (Auto) (0.0-0.8) K/uL Eos # (Auto) (0.0-0.7) K/uL Baso # (Auto) (0.0-0.1) K/uL Nucleated RBC % /100WBC Nucleated RBCs # K/uL Sodium 145 (136-145) mmol/L Potassium 3.7 (3.5-5.1) mmol/L Chloride 110 H (98-107) mmol/L Carbon Dioxide 29.0 (21.0-32.0) mmol/L BUN 22 H (7.0-18.0) mg/dL Creatinine 0.9 (0.6-1.0) mg/dL Est Cr Clr Drug Dosing 35.05 mL/min Estimated GFR (MDRD) 59.0 ml/min Glucose 80 (74-106) mg/dL Calcium 8.6 (8.5-10.1) mg/dL Total Bilirubin 0.5 (0.2-1.0) mg/dL AST 13 L (15-37) IU/L ALT 11 L (14-63) IU/L Alkaline Phosphatase 44 L (46-116) U/L Total Protein 5.5 L (6.4-8.2) g/dL Albumin 3.2 L (3.4-5.0) g/dL Globulin 2.3 L (2.6-4.0) g/dL Albumin/Globulin Ratio 1.4 (0.9-1.6) [place] Results - Last 24 hrs: Microbiology 03/23/19 00:30 Urine Culture - Final Urine, Clean Catch MIXED BRENDON >100,000 CFU/ML 03/23/19 16:20 Stool Occult Blood ([place]) - Final Stool / Feces NEGATIVE OCCULT BLOOD REFERENCE RANGE: NEGATIVE Med Orders - Current: Current Medications Bisacodyl (Dulcolax) 10 mg RECTAL DAILY [facility] Last Admin: 03/24/19 10:19 Dose: Not Given Sodium Chloride (Normal Saline) 500 mls @ 999 mls/hr IV STAT [facility] Last Admin: 03/23/19 00:36 Dose: 999 mls/hr Sodium Chloride (Normal Saline) 1,000 mls @ 75 mls/hr IV ASDIRECTED [facility] Last Admin: 03/23/19 01:27 Dose: 75 mls/hr Ceftriaxone Sodium/Dextrose 1 (gm/ Premix) 50 mls @ 100 mls/hr IV Q24H [facility] Last Admin: 03/24/19 10:24 Dose: Not Given Pantoprazole Sodium (Protonix) 40 mg PO DAILY [facility] Last Admin: 03/24/19 10:17 Dose: 40 mg Polyethylene Glycol (Miralax) 17 gm PO DAILY PRN PRN Reason: Constipation Sodium Chloride (Saline Flush) 10 ml FLUSH ASDIRECTED PRN PRN Reason: Keep Vein Open Last Admin: 03/23/19 01:27 Dose: 10 ml Sodium Chloride (Saline Flush) 2.5 ml FLUSH ASDIRECTED PRN PRN Reason: Keep Vein Open Last Admin: 03/23/19 01:27 Dose: 2.5 ml Sucralfate (Carafate) 1 gm PO QIDACANDBED [facility] Last Admin: 03/24/19 07:47 Dose: 1 gm Discontinued Medications Sodium Chloride (Normal Saline) Confirm Administered Dose 20 mls @ as directed .ROUTE .STK-MED ONE Stop: 03/22/19 23:00 Last Admin: 03/22/19 23:00 Dose: 20 mls/hr Pantoprazole Sodium 80 mg/ (Sodium Chloride) 100 mls @ 10 mls/hr IV .Continuous [facility] Last Admin: 03/23/19 01:27 Dose: 10 mls/hr Pantoprazole Sodium 40 mg/ (Sodium Chloride) 10 mls @ 200 mls/hr IV Q24H [facility] Last Admin: 03/24/19 07:42 Dose: Not Given Influenza Virus Vaccine (Fluzone High-Dose 2019-20 Syringe) 180 mcg IM .ONCE ONE Stop: 03/23/19 10:01 Lidocaine HCl (Xylocaine-Mpf 1%) Confirm Administered Dose 5 ml .ROUTE .STK-MED ONE Stop: 03/23/19 12:11 Ondansetron HCl (Zofran) 4 mg IVPUSH ONETIME ONE Stop: 03/22/19 22:47 Last Admin: 03/22/19 23:00 Dose: 4 mg Pantoprazole Sodium (Protonix Iv) 80 mg IVPUSH .BOLUS ONE Stop: 03/22/19 22:47 Last Admin: 03/22/19 23:00 Dose: 80 mg Propofol (Diprivan 20 Ml) Confirm Administered Dose 200 mg .ROUTE .STK-MED ONE Stop: 03/23/19 12:11 <Angel Castaneda - Last Filed: 03/24/19 20:41> Discharge Summary - Referral to Home Health Primary Care Physician: Bradley Palma MD - Patient Summary/Data Consults: Consultations 03/23/19 09:43 Consult to Physician [CONS] Routine - Patient Data Vitals - Most Recent: Last Vital Signs Temp 36.7 C 03/24/19 12:00 Pulse 78 03/24/19 12:00 Resp 20 03/24/19 12:00 BP 140/62 03/24/19 12:00 Pulse Ox 95 03/24/19 12:00 I&O - Last 24 hours: Intake & Output 03/24/19 03/24/19 03/24/19 06:59 14:59 22:59 Intake Total 660 Output Total 420 Balance 240 Lab Results - Last 24 hrs: Laboratory Results - last 24 hr 03/23/19 03/24/19 03/24/19 Range/Units 22:06 05:05 05:05 WBC 4.17 (4.0-11.0) K/uL RBC 2.38 L (4.30-5.90) M/uL Hgb 9.0 L 8.3 L (12.0-16.0) g/dL Hct 28.3 L 23.5 L (36.0-46.0) % MCV 98.7 H (80.0-98.0) fL MCH 34.9 H (27.0-32.0) pg MCHC 35.3 (31.0-37.0) g/dL RDW Std Deviation 49.5 (28.0-62.0) fl RDW Coeff of Rosalinda 14 (11.0-15.0) % Plt Count 215 (150-400) K/uL MPV 10.60 (7.40-12.00) fL Neut % (Auto) 52.5 (48.0-80.0) % Lymph % (Auto) 32.4 (16.0-40.0) % Lyman % (Auto) 8.6 (0.0-15.0) % Eos % (Auto) 6.0 (0.0-7.0) % Baso % (Auto) 0.5 (0.0-1.5) % Neut # (Auto) 2.2 (1.4-5.7) K/uL Lymph # (Auto) 1.4 (0.6-2.4) K/uL Lyman # (Auto) 0.4 (0.0-0.8) K/uL Eos # (Auto) 0.3 (0.0-0.7) K/uL Baso # (Auto) 0.0 (0.0-0.1) K/uL Nucleated RBC % 0.0 /100WBC Nucleated RBCs # 0 K/uL Sodium 145 (136-145) mmol/L Potassium 3.7 (3.5-5.1) mmol/L Chloride 110 H (98-107) mmol/L Carbon Dioxide 29.0 (21.0-32.0) mmol/L BUN 22 H (7.0-18.0) mg/dL Creatinine 0.9 (0.6-1.0) mg/dL Est Cr Clr Drug Dosing 35.05 mL/min Estimated GFR (MDRD) 59.0 ml/min Glucose 80 (74-106) mg/dL Calcium 8.6 (8.5-10.1) mg/dL Total Bilirubin 0.5 (0.2-1.0) mg/dL AST 13 L (15-37) IU/L ALT 11 L (14-63) IU/L Alkaline Phosphatase 44 L (46-116) U/L Total Protein 5.5 L (6.4-8.2) g/dL Albumin 3.2 L (3.4-5.0) g/dL Globulin 2.3 L (2.6-4.0) g/dL Albumin/Globulin Ratio 1.4 (0.9-1.6) [place] Results - Last 24 hrs: Microbiology 03/23/19 00:30 Urine Culture - Final Urine, Clean Catch MIXED [place] >100,000 CFU/ML 03/23/19 16:20 Stool Occult Blood ([place]) - Final Stool / Feces NEGATIVE OCCULT BLOOD REFERENCE RANGE: NEGATIVE Med Orders - Current: Current Medications Discontinued Medications Bisacodyl (Dulcolax) 10 mg RECTAL DAILY [facility] Last Admin: 03/24/19 10:19 Dose: Not Given Sodium Chloride (Normal Saline) 500 mls @ 999 mls/hr IV STAT [facility] Last Admin: 03/23/19 00:36 Dose: 999 mls/hr Sodium Chloride (Normal Saline) Confirm Administered Dose 20 mls @ as directed .ROUTE .STK-MED ONE Stop: 03/22/19 23:00 Last Admin: 03/22/19 23:00 Dose: 20 mls/hr Pantoprazole Sodium 80 mg/ (Sodium Chloride) 100 mls @ 10 mls/hr IV .Continuous [facility] Last Admin: 03/23/19 01:27 Dose: 10 mls/hr Sodium Chloride (Normal Saline) 1,000 mls @ 75 mls/hr IV ASDIRECTED [facility] Last Admin: 03/23/19 01:27 Dose: 75 mls/hr Pantoprazole Sodium 40 mg/ (Sodium Chloride) 10 mls @ 200 mls/hr IV Q24H [facility] Last Admin: 03/24/19 07:42 Dose: Not Given Ceftriaxone Sodium/Dextrose 1 (gm/ Premix) 50 mls @ 100 mls/hr IV Q24H [facility] Last Admin: 03/24/19 10:24 Dose: Not Given Influenza Virus Vaccine (Fluzone High-Dose 2019-20 Syringe) 180 mcg IM .ONCE ONE Stop: 03/23/19 10:01 Lidocaine HCl (Xylocaine-Mpf 1%) Confirm Administered Dose 5 ml .ROUTE .STK-MED ONE Stop: 03/23/19 12:11 Ondansetron HCl (Zofran) 4 mg IVPUSH ONETIME ONE Stop: 03/22/19 22:47 Last Admin: 03/22/19 23:00 Dose: 4 mg Pantoprazole Sodium (Protonix Iv) 80 mg IVPUSH .BOLUS ONE Stop: 03/22/19 22:47 Last Admin: 03/22/19 23:00 Dose: 80 mg Pantoprazole Sodium (Protonix) 40 mg PO DAILY [facility] Last Admin: 03/24/19 10:17 Dose: 40 mg Polyethylene Glycol (Miralax) 17 gm PO DAILY PRN PRN Reason: Constipation Propofol (Diprivan 20 Ml) Confirm Administered Dose 200 mg .ROUTE .STK-MED ONE Stop: 03/23/19 12:11 Sodium Chloride (Saline Flush) 10 ml FLUSH ASDIRECTED PRN PRN Reason: Keep Vein Open Last Admin: 03/23/19 01:27 Dose: 10 ml Sodium Chloride (Saline Flush) 2.5 ml FLUSH ASDIRECTED PRN PRN Reason: Keep Vein Open Last Admin: 03/23/19 01:27 Dose: 2.5 ml Sucralfate (Carafate) 1 gm PO QIDACANDBED [facility] Last Admin: 03/24/19 11:38 Dose: 1 gm - Free Text/Narrative Note: I have seen and evaluated the patient with the resident. I have discussed findings and treatment plan with the resident. I agree with the assessment and plan outlined in the following note.
== END 2019-03-24 13:00 | disposition home or self-care (01) ==
LOC: MW.ED 22:17 → MW.MS 03-23 00:35
PROVIDERS: ADMIT Internal Medicine; ATTEND Internal Medicine
DX: K27.4 Chronic or unspecified peptic ulcer, site unspecified, with hemorrhage (principal); K29.31 Chronic superficial gastritis with bleeding; K59.00 Constipation, unspecified; I48.91 Unspecified atrial fibrillation; N39.0 Urinary tract infection, site not specified; E78.00 Pure hypercholesterolemia, unspecified; Z79.82 Long term (current) use of aspirin; Z79.899 Other long term (current) drug therapy; Z88.8 Allergy status to other drugs, medicaments and biological substances; Z88.5 Allergy status to narcotic agent; Z87.891 Personal history of nicotine dependence
CPT/HCPCS: 36415; 43239; 74022; 80048; 80053; 81001; 82150; 82272; 83690; 85014; 85018; 85025; 85610; 86850; 86900; 86901; 87086; 88305; 88312; 93005; 96361; 96365; 96375; 96376; 99285; A9270; C9113; J0696; J2001; J2405; J2704; J7030; J7040; 00731; 96367; G0378

== ENCOUNTER 2019-04-08 09:36 | Observation (INO) | payer MEDICARE ==
--- NOTE | 2019-04-08 10:28 | EDM.PDOC ---
ED HPI GENERAL MEDICAL PROBLEM - General Chief Complaint: Neurological Problem Stated Complaint: CONFUSSION Time Seen by Provider: 04/08/19 09:55 Source of Information: Reports: Patient, Family History Limitations: Reports: No Limitations - History of Present Illness INITIAL COMMENTS - FREE TEXT/NARRATIVE: HISTORY AND PHYSICAL: History of present illness: Patient is an 88-year-old female who presents to the ED today with her daughter for concern of increased confusion since yesterday. Daughter does state she has underlying dementia but over the past day she has been "seeing things "that aren 't there. Daughter states that she is seeing people in her room and believes that she was on a boat last night when they were at home. Daughter states that she has a history of "brain bleed "approximately one year ago. Daughter denies any falls for patient and states patient lives with her at home. Patient does seem confused and unaware of place and time but is aware of person. Patient does have a history of atrial fibrillation in which she was taking full dose aspirin daily for anticoagulation. Daughter states [address] Palma, her primary care provider, to stop taking the aspirin. Daughter states she did give patient a full dose ASA today. Patient/daughter denies fever, chills, chest pain, shortness of breath, or cough. Denies headache, neck stiff ness, change in vision, syncope, or near syncope. Denies nausea, vomiting, abdominal pain, diarrhea, constipation, or dysuria. Has not noted any blood in urine or stool. Patient has been eating and drinking appropriately. Review of systems: As per history of present illness and below otherwise all systems reviewed and negative. Past medical history: As per history of present illness and as reviewed below otherwise noncontributory. Surgical history: As per history of present illness and as reviewed below otherwise noncontributory. Social history: See social history for further information Family history: As per history of present illness and as reviewed below otherwise noncontributory. Physical exam: General: Patient is alert, oriented to person but not place and time, and in no acute distress. Patient laying comfortably on exam table. HEENT: Atraumatic, normocephalic, pupils equal and reactive bilaterally, negative for conjunctival pallor or scleral icterus, mucous membranes moist, TMs normal bilaterally, throat clear, neck supple, nontender, trachea midline. No drooling or trismus noted. No meningeal signs. No hot potato voice noted. Lungs: Clear to auscultation, breath sounds equal bilaterally, chest nontender. Heart: S1S2, regular rate and rhythm without overt murmur Abdomen: Soft, nondistended, nontender. Negative for masses or hepatosplenomegaly. Negative for costovertebral tenderness. Pelvis: Stable nontender. Genitourinary: Deferred. Rectal: Hemoccult positive. Tone intact. No obvious masses, hemorrhoids, or lesions noted. Skin: Intact, warm, dry. No lesions or rashes noted. Extremities: Atraumatic, negative for cords or calf pain. Neurovascular unremarkable. Neuro: Awake, alert, oriented. Cranial nerves II through XII unremarkable. Cerebellum unremarkable. Motor and sensory unremarkable throughout. Exam nonfocal. Notes: Dr. Millan directly involved in patient care. Dr. Gimenez consulted on patient. Will admit to observation. Voices understanding and is agreeable to plan of care. Denies any further questions or concerns at this time. Diagnostics: CBC, CMP, UA, EKG, CXR, Troponin, Head CT, PT/INR, Hemoccult, keppra level Therapeutics: None Impression: Confusion Elevated troponin H/O GI bleed H/O Dementia Plan: 1. Admit to observation to Dr. Gimenez Definitive disposition and diagnosis as appropriate pending reevaluation and review of above. Neck Pain Score (Numeric/FACES): 4 - Related Data Allergies Allergy/AdvReac Type Severity Reaction Status Date / Time candesartan [From Atacand] Allergy Hallucinati Verified 03/22/19 22:18 ons enalaprilat [From Vasotec] Allergy Hallucinati Verified 03/22/19 22:18 ons lisinopril Allergy Hallucinati Verified 03/22/19 22:18 ons morphine Allergy Hallucinati Verified 03/22/19 22:18 ons propoxyphene Allergy Hallucinati Verified 03/22/19 22:18 [From Darvocet-N] ons tramadol Allergy Hallucinati Verified 03/22/19 22:18 ons Home Meds: Home Meds Acetaminophen 1,000 mg PO BID PRN 06/25/17 [History] Aspirin 325 mg PO BEDTIME 06/25/17 [History] Budesonide/Formoterol [Symbicort 80-4.5 MCG] 6.9 gm INH ASDIRECTED 06/25/17 [ History] Furosemide 20 mg PO DAILY 06/25/17 [History] Losartan [Cozaar] 50 mg PO BID 06/25/17 [History] Multivitamin [Multivitamins] 1 tab PO DAILY 06/25/17 [History] Potassium Chloride 10 meq PO BID 06/25/17 [History] atorvaSTATin [Lipitor] 20 mg PO BEDTIME 06/25/17 [History] Metoprolol Tartrate 50 mg PO BID 12/18/17 [History] Bisacodyl 10 mg RECTAL ASDIRECTED 03/22/19 [History] Diclofenac Sodium [Voltaren 1% Gel] 100 gm TOP ASDIRECTED 03/22/19 [History] Polyethylene Glycol 3350 [MiraLAX] 17 gm PO ASDIRECTED 03/22/19 [History] Psyllium Husk 3.4 gm PO ASDIRECTED 03/22/19 [History] levETIRAcetam [Keppra] 500 mg PO BID 03/22/19 [History] Omeprazole 20 mg PO DAILY #30 capsule.dr 03/24/19 [Rx] Sucralfate [Carafate] 1 gm PO QIDACANDBED #30 cup 03/24/19 [Rx] Sulfamethoxazole/Trimethoprim [Bactrim Ds Tablet] 1 each PO BID 3 Days #6 tablet 03/24/19 [Rx] Past Medical History HEENT History: Reports: Hard of Hearing, Impaired Vision, Other (See Below) Other HEENT History: nasal polyps, wears glasses, upper dentures-not with pt Cardiovascular History: Reports: Afib, High Cholesterol, Other (See Below) Other Cardiovascular History: Enlagred heart Respiratory History: Reports: None Gastrointestinal History: Reports: None Genitourinary History: Reports: Urinary Incontinence CHAIRMAN History: Reports: Musculoskeletal History: Reports: None Neurological History: Reports: TIA, Other (See Below) Other Neuro History: Brain bleed Psychiatric History: Reports: None Endocrine/Metabolic History: Reports: None Hematologic History: Reports: None Immunologic History: Reports: None Oncologic (Cancer) History: Reports: None Dermatologic History: Reports: None - Infectious Disease History Infectious Disease History: Reports: None - Past Surgical History Head Surgeries/Procedures: Reports: None HEENT Surgical History: Reports: None Cardiovascular Surgical History: Reports: None Respiratory Surgical History: Reports: None GI Surgical History: Reports: None Female Surgical History: Reports: Hysterectomy Endocrine Surgical History: Reports: None Neurological Surgical History: Reports: None Musculoskeletal Surgical History: Reports: Hip Replacement, Joint Replacement, Knee Replacement, Shoulder Replacement Other Musculoskeletal Surgeries/Procedures:: bilat shoulder, bilat knee, r hip Oncologic Surgical History: Reports: None Dermatological Surgical History: Reports: None Social & Family History - Family History Family Medical History: Noncontributory - Tobacco Use Smoking Status *Q: Never Smoker - Caffeine Use Caffeine Use: Reports: Coffee Caffeine Use Comment: 1 cup - Recreational Drug Use Recreational Drug Use: No ED ROS GENERAL - Review of Systems Review Of Systems: Comprehensive ROS is negative, except as noted in HPI. ED EXAM, GENERAL - Physical Exam Exam: See Below (see dictation) Course - Vital Signs Last Recorded V/S: Last Vital Signs Temp 97.1 F 04/08/19 10:02 Pulse 69 04/08/19 12:21 Resp 16 04/08/19 12:21 BP 149/65 H 04/08/19 12:21 Pulse Ox 98 04/08/19 12:21 - Orders/Labs/Meds Orders: Active Orders 24 hr Category Date Time Status Admission Status [Patient Status] [ADT] Stat ADT 04/08/19 13:10 Ordered EKG Documentation Completion [RC] STAT Care 04/08/19 10:17 Active B-TYPE NATRIURETIC PEPTIDE,BNP [CHEM] Stat Lab 04/08/19 10:30 Received LEVETIRACETAM, S [REF] Stat Lab 04/08/19 12:56 Ordered Labs: Laboratory Tests 04/08/19 04/08/19 04/08/19 Range/Units 10:30 10:30 10:30 WBC 4.10 (4.0-11.0) K/uL RBC 3.06 L (4.30-5.90) M/uL Hgb 9.7 L (12.0-16.0) g/dL Hct 30.3 L (36.0-46.0) % MCV 99.0 H (80.0-98.0) fL MCH 31.7 (27.0-32.0) pg MCHC 32.0 (31.0-37.0) g/dL RDW Std Deviation 51.2 (28.0-62.0) fl RDW Coeff of Rosalinda 14 (11.0-15.0) % Plt Count 220 (150-400) K/uL MPV 8.60 (7.40-12.00) fL Neut % (Auto) 51.5 (48.0-80.0) % Lymph % (Auto) 31.2 (16.0-40.0) % [place] % (Auto) 9.5 (0.0-15.0) % Eos % (Auto) 6.1 (0.0-7.0) % Baso % (Auto) 1.7 H (0.0-1.5) % Neut # (Auto) 2.1 (1.4-5.7) K/uL Lymph # (Auto) 1.3 (0.6-2.4) K/uL [place] # (Auto) 0.4 (0.0-0.8) K/uL Eos # (Auto) 0.3 (0.0-0.7) K/uL Baso # (Auto) 0.1 (0.0-0.1) K/uL Nucleated RBC % 0.0 /100WBC Nucleated RBCs # 0 K/uL INR 1.08 Sodium 139 (136-145) mmol/L Potassium 4.2 (3.5-5.1) mmol/L Chloride 103 (98-107) mmol/L Carbon Dioxide 28.2 (21.0-32.0) mmol/L BUN 13 (7.0-18.0) mg/dL Creatinine 1.0 (0.6-1.0) mg/dL Est Cr Clr Drug Dosing 31.55 mL/min Estimated GFR (MDRD) 52.2 ml/min Glucose 116 H (74-106) mg/dL Calcium 9.2 (8.5-10.1) mg/dL Total Bilirubin 0.5 (0.2-1.0) mg/dL AST 18 (15-37) IU/L ALT 14 (14-63) IU/L Alkaline Phosphatase 74 (46-116) U/L Troponin I 0.060 H* (0.000-0.056) ng/mL Total Protein 6.6 (6.4-8.2) g/dL Albumin 3.8 (3.4-5.0) g/dL Globulin 2.8 (2.6-4.0) g/dL Albumin/Globulin Ratio 1.4 (0.9-1.6) Lipase 125 (73-393) U/L Urine Color Urine Appearance Urine pH (5.0-8.0) Ur Specific [place] (1.001-1.035) Urine Protein (NEGATIVE) mg/dL Urine Glucose (UA) (NEGATIVE) mg/dL Urine Ketones (NEGATIVE) mg/dL Urine Occult Blood (NEGATIVE) Urine Nitrite (NEGATIVE) Urine Bilirubin (NEGATIVE) Urine Urobilinogen (<2.0) EU/dL Ur Leukocyte Esterase (NEGATIVE) Urine RBC (0-2/HPF) Urine WBC (0-5/HPF) Ur Epithelial Cells (NONE-FEW) Amorphous Sediment (NEGATIVE) Urine Bacteria (NEGATIVE) Urine Mucus (NONE-MOD) 04/08/19 Range/Units 11:00 WBC (4.0-11.0) K/uL RBC (4.30-5.90) M/uL Hgb (12.0-16.0) g/dL Hct (36.0-46.0) % MCV (80.0-98.0) fL MCH (27.0-32.0) pg MCHC (31.0-37.0) g/dL RDW Std Deviation (28.0-62.0) fl RDW Coeff of Rosalinda (11.0-15.0) % Plt Count (150-400) K/uL MPV (7.40-12.00) fL Neut % (Auto) (48.0-80.0) % Lymph % (Auto) (16.0-40.0) % [place] % (Auto) (0.0-15.0) % Eos % (Auto) (0.0-7.0) % Baso % (Auto) (0.0-1.5) % Neut # (Auto) (1.4-5.7) K/uL Lymph # (Auto) (0.6-2.4) K/uL [place] # (Auto) (0.0-0.8) K/uL Eos # (Auto) (0.0-0.7) K/uL Baso # (Auto) (0.0-0.1) K/uL Nucleated RBC % /100WBC Nucleated RBCs # K/uL INR Sodium (136-145) mmol/L Potassium (3.5-5.1) mmol/L Chloride (98-107) mmol/L Carbon Dioxide (21.0-32.0) mmol/L BUN (7.0-18.0) mg/dL Creatinine (0.6-1.0) mg/dL Est Cr Clr Drug Dosing mL/min Estimated GFR (MDRD) ml/min Glucose (74-106) mg/dL Calcium (8.5-10.1) mg/dL Total Bilirubin (0.2-1.0) mg/dL AST (15-37) IU/L ALT (14-63) IU/L Alkaline Phosphatase (46-116) U/L Troponin I (0.000-0.056) ng/mL Total Protein (6.4-8.2) g/dL Albumin (3.4-5.0) g/dL Globulin (2.6-4.0) g/dL Albumin/Globulin Ratio (0.9-1.6) Lipase (73-393) U/L Urine Color YELLOW Urine Appearance CLEAR Urine pH 6.0 (5.0-8.0) Ur Specific [place] <= 1.005 (1.001-1.035) Urine Protein NEGATIVE (NEGATIVE) mg/dL Urine Glucose (UA) NEGATIVE (NEGATIVE) mg/dL Urine Ketones NEGATIVE (NEGATIVE) mg/dL Urine Occult Blood SMALL H (NEGATIVE) Urine Nitrite NEGATIVE (NEGATIVE) Urine Bilirubin NEGATIVE (NEGATIVE) Urine Urobilinogen 0.2 (<2.0) EU/dL Ur Leukocyte Esterase NEGATIVE (NEGATIVE) Urine RBC 1-3 (0-2/HPF) Urine WBC 2-3 (0-5/HPF) Ur Epithelial Cells OCCASIONAL (NONE-FEW) Amorphous Sediment NOT SEEN (NEGATIVE) Urine Bacteria NOT SEEN (NEGATIVE) Urine Mucus NOT SEEN (NONE-MOD) Meds: Medications Discontinued Medications Generic Name Dose Route Start Last Admin Trade Name Freq PRN Reason Stop Dose Admin Enalaprilat 0.625 mg 04/08/19 12:30 Vasotec Iv IV 04/08/19 12:31 NOW STA Sodium Chloride 1,000 mls @ 999 mls/hr 04/08/19 10:29 04/08/19 11:29 Normal Saline IV 04/08/19 11:29 999 mls/hr STAT ONE Administration Departure - Departure Time of Disposition: 13:15 Disposition: Refer to Observation Clinical Impression: Confusion, Elevated troponin, History of GI bleed, History of dementia - Discharge Information Referrals: Bradley Palma MD [Primary Care Provider] - Forms: ED Department Discharge - My Orders Last 24 Hours: My Active Orders 04/08/19 10:17 EKG Documentation Completion [RC] STAT 04/08/19 10:30 B-TYPE NATRIURETIC PEPTIDE,BNP [CHEM] Stat 04/08/19 12:56 LEVETIRACETAM, S [REF] Stat 04/08/19 13:10 Admission Status [Patient Status] [ADT] Stat - Assessment/Plan Last 24 Hours: My Active Orders 04/08/19 10:17 EKG Documentation Completion [RC] STAT 04/08/19 10:30 B-TYPE NATRIURETIC PEPTIDE,BNP [CHEM] Stat 04/08/19 12:56 LEVETIRACETAM, S [REF] Stat 04/08/19 13:10 Admission Status [Patient Status] [ADT] Stat
[2019-04-08] MEDS ORDERED: Sodium Chloride 0.9% 1,000 ML IV ONE (10:29)
--- NOTE | 2019-04-08 11:13 | CR ---
EXAM DATE: 04/08/19 PATIENT'S AGE: 88 Chest: Portable view of the chest was obtained. Comparison: Prior chest x-ray of 02/09/18. Heart is enlarged. Tortuous thoracic aorta is seen. Slight scarring is seen within the left midlung. Bilateral shoulder prosthesis are seen. Scoliosis is noted within the spine. No acute parenchymal change is seen. Impression: 1. Cardiomegaly. Other findings as noted above. 2. Nothing acute is appreciated on portable chest x-ray. Diagnostic code #2 This report was dictated in [place] Standard Time Report Signed by Proxy. [facility]
--- NOTE | 2019-04-08 11:23 | CT ---
EXAM DATE: 04/08/19 PATIENT'S AGE: [address] Technique: Multiple axial sections through the brain were obtained. Intravenous contrast was not utilized. Comparison: Prior head CT study of 02/09/18. Findings: Ventricles along with basal cisterns and sulci over the convexities are moderately prominent. Mild areas of diminished density are noted within the periventricular white matter compatible with small vessel ischemic demyelination change. Similar findings are seen within portions of the basal ganglia. 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 Minimal basal ganglia calcification is seen. No other abnormal parenchymal densities are seen. No evidence of intracranial hemorrhage. No midline shift or mass effect is seen. Bone window settings were reviewed which shows mild mucosal thickening within the ethmoid sinuses. There is an old medial left orbital blowout fracture. Mastoid sinuses are clear. No acute calvarial abnormality is appreciated. Impression: 1. Mild mucosal thickening within the ethmoid sinuses which appear chronic. Old medial left orbital blowout fracture. 2. Senescent change as noted above. 3. Nothing acute is appreciated on noncontrast head CT study. Diagnostic code #2 This report was dictated in [place] Standard Time Report Signed by Proxy. [facility]
[2019-04-08 11:43] LABS: CARBON DIOXIDE,CO2 28.2 mmol/L (21.0-32.0); POTASSIUM,K 4.2 mmol/L (3.5-5.1)
[2019-04-08] MEDS ORDERED: Enalaprilat 1.25 MG/ML SDV IV STA (12:30)
[2019-04-08] MEDS: Pantoprazole 40 MG in Sodium Chloride 0.9% 10 ML IV SCH ×2 (15:51→20:32)
[2019-04-08] MEDS ORDERED: ALPRAZolam 0.25 MG Tab PO PRN (17:49)
[2019-04-08] MEDS: atorvaSTATin 40 MG Tab PO SCH (20:32)
[2019-04-08] MEDS ORDERED: levETIRAcetam 500 MG Tab PO SCH (21:00)
--- NOTE | 2019-04-08 21:15 | PCM.HP.2 ---
H&P History of Present Illness - General Date of Service: 04/08/19 Admit Problem/Dx: Admission Diagnosis/Problem Admission Diagnosis/Problem Confusion Source of Information: Family History Limitations: Reports: Altered Mental Status - History of Present Illness Initial Comments - Free Text/Narative: Patient is an 88-year-old female from home with PMH of possible dementia, seizures, TIA, GI bleeding, A-fib who presents to the ED for concern of confusion and hallucinations since yesterday. According to daughter she has similar episodes in the past several years ago, work up at that time reveled possible seizures causing hallucinations and confusion. Patient was stated on Keppra. After incitation of Keppra there were no more incidents up until yesterday. Hallucinations are vivid, patient describes people present in the room and faces appearing on the ceiling. Daughter also states that she has a history of "brain bleed "approximately one year ago, family denied any falls for patient. In ER patient was confused and unaware of place and time but is aware of person. Patient does have a history of atrial fibrillation in which she was taking full dose aspirin daily for anticoagulation but 5 days back her PCP stopped ASA due to concerns of GI bleeding. Today daughter thought she is having a stroke so gave her full dose of ASA. In the ER patient was found to be heme-occult positive. CT scan negative for acute bleed or infarct but sowed chronic vacular changes. Patient is being admitted for management of GI bleed and AMS. Neck Pain Score (Numeric/FACES): 4 - Related Data Allergies/Adverse Reactions: Allergies Allergy/AdvReac Type Severity Reaction Status Date / Time candesartan [From Atacand] Allergy Hallucinati Verified 04/08/19 14:25 ons enalaprilat [From Vasotec] Allergy Hallucinati Verified 04/08/19 14:25 ons lisinopril Allergy Hallucinati Verified 04/08/19 14:25 ons morphine Allergy Hallucinati Verified 04/08/19 14:25 ons propoxyphene Allergy Hallucinati Verified 04/08/19 14:25 [From Darvocet-N] ons tramadol Allergy Hallucinati Verified 04/08/19 14:25 ons Home Medications: Home Meds Acetaminophen 1,000 mg PO BID PRN 06/25/17 [History] Aspirin 325 mg PO BEDTIME 06/25/17 [History] Furosemide 20 mg PO DAILY 06/25/17 [History] Losartan [Cozaar] 50 mg PO DAILY 06/25/17 [History] Multivitamin [Multivitamins] 1 tab PO DAILY 06/25/17 [History] Potassium Chloride 10 meq PO BID 06/25/17 [History] atorvaSTATin [Lipitor] 20 mg PO BEDTIME 06/25/17 [History] Metoprolol Tartrate 50 mg PO BID 12/18/17 [History] Bisacodyl 10 mg RECTAL ASDIRECTED 03/22/19 [History] levETIRAcetam [Keppra] 500 mg PO BID 03/22/19 [History] Omeprazole 20 mg PO DAILY #30 capsule.dr 03/24/19 [Rx] Sucralfate [Carafate] 1 gm PO QIDACANDBED #30 cup 03/24/19 [Rx] Folic Acid 1 tab DAILY 04/08/19 [History] traMADol HCl [Tramadol HCl] 50 mg PO Q12HR PRN 04/08/19 [History] Ferrous Sulfate 324 mg PO DAILY 04/09/19 [History] Past Medical History HEENT History: Reports: Hard of Hearing, Impaired Vision, Other (See Below) Other HEENT History: nasal polyps, wears glasses, upper dentures Cardiovascular History: Reports: Afib, High Cholesterol, Other (See Below) Other Cardiovascular History: Enlagred heart, pts daughter reports having mulitple TIAs in the past Respiratory History: Reports: Asthma Gastrointestinal History: Reports: None Genitourinary History: Reports: Urinary Incontinence 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: Musculoskeletal History: Reports: Arthritis, Back Pain, Chronic Neurological History: Reports: TIA, Other (See Below) Other Neuro History: Brain bleed- 2014 Psychiatric History: Reports: None Endocrine/Metabolic History: Reports: None Hematologic History: Reports: None Immunologic History: Reports: None Oncologic (Cancer) History: Reports: None Dermatologic History: Reports: None - Infectious Disease History Infectious Disease History: Reports: None - Past Surgical History Head Surgeries/Procedures: Reports: None HEENT Surgical History: Reports: None Cardiovascular Surgical History: Reports: None Respiratory Surgical History: Reports: None GI Surgical History: Reports: None Female Surgical History: Reports: Hysterectomy Endocrine Surgical History: Reports: None Neurological Surgical History: Reports: None Musculoskeletal Surgical History: Reports: Hip Replacement, Joint Replacement, Knee Replacement, Shoulder Replacement Other Musculoskeletal Surgeries/Procedures:: bilat shoulder, bilat knee, r hip Oncologic Surgical History: Reports: None Dermatological Surgical History: Reports: None Social & Family History - Family History Family Medical History: Noncontributory - Tobacco Use Smoking Status *Q: Former Smoker Years of Tobacco use: 30 Packs/Tins Daily: 0.5 Used Tobacco, but Quit: Yes Month/Year Tobacco Last Used: 1984 Second Hand Smoke Exposure: No - Caffeine Use Caffeine Use: Reports: Coffee Caffeine Use Comment: 1 cup - Recreational Drug Use Recreational Drug Use: No H&P Review of Systems - Review of Systems: Review Of Systems: Unable To Obtain (Altered) Reason Not Obtained: Altered Exam - Exam Exam: See Below - Vital Signs Vital Signs: Last Vital Signs Temp 36.5 C 04/08/19 16:58 Pulse 68 04/08/19 16:58 Resp 22 H 04/08/19 16:58 BP 136/63 04/08/19 16:58 Pulse Ox 96 04/08/19 16:58 Weight: 67.5 kg - Exam General: Alert, Mild Distress. No: Oriented Neck: Trachea Midline Lungs: Clear to Auscultation, Normal Respiratory Effort Cardiovascular: Regular Rate, Normal S1, Normal S2, Irregular Rhythm GI/Abdominal Exam: Normal Bowel Sounds Extremities: Normal Inspection, Normal Range of Motion Peripheral Pulses: 3+: Dorsalis Pedis (L), Dorsalis Pedis (R) Neuro Extensive - Mental Status: No: Oriented x3, Normal Mood/Affect, Normal Cognition, Memory Intact Neuro Extensive - Motor, Sensory, Reflexes: CN II-XII Intact. No: Tongue Deviation (R), Dysarthria, Facial Palsy (R), Facial Palsy wo Forehead, Pronator Drift (L) DTR: 2+: Patella (L), Patella (R) Psychiatric: Anxious, Hallucinations - Patient Data Lab Results Last 24 hrs: Laboratory Results - last 24 hr 04/08/19 04/08/19 04/08/19 Range/Units 10:30 10:30 10:30 WBC 4.10 (4.0-11.0) K/uL RBC 3.06 L (4.30-5.90) M/uL Hgb 9.7 L (12.0-16.0) g/dL Hct 30.3 L (36.0-46.0) % MCV 99.0 H (80.0-98.0) fL MCH 31.7 (27.0-32.0) pg MCHC 32.0 (31.0-37.0) g/dL RDW Std Deviation 51.2 (28.0-62.0) fl RDW Coeff of Rosalinda 14 (11.0-15.0) % Plt Count 220 (150-400) K/uL MPV 8.60 (7.40-12.00) fL Neut % (Auto) 51.5 (48.0-80.0) % Lymph % (Auto) 31.2 (16.0-40.0) % Grant % (Auto) 9.5 (0.0-15.0) % Eos % (Auto) 6.1 (0.0-7.0) % Baso % (Auto) 1.7 H (0.0-1.5) % Neut # (Auto) 2.1 (1.4-5.7) K/uL Lymph # (Auto) 1.3 (0.6-2.4) K/uL Grant # (Auto) 0.4 (0.0-0.8) K/uL Eos # (Auto) 0.3 (0.0-0.7) K/uL Baso # (Auto) 0.1 (0.0-0.1) K/uL Nucleated RBC % 0.0 /100WBC Nucleated RBCs # 0 K/uL INR 1.08 Sodium 139 (136-145) mmol/L Potassium 4.2 (3.5-5.1) mmol/L Chloride 103 (98-107) mmol/L Carbon Dioxide 28.2 (21.0-32.0) mmol/L BUN 13 (7.0-18.0) mg/dL Creatinine 1.0 (0.6-1.0) mg/dL Est Cr Clr Drug Dosing 31.55 mL/min Estimated GFR (MDRD) 52.2 ml/min Glucose 116 H (74-106) mg/dL Calcium 9.2 (8.5-10.1) mg/dL Phosphorus (2.6-4.7) mg/dL Magnesium (1.8-2.4) mg/dL Total Bilirubin 0.5 (0.2-1.0) mg/dL AST 18 (15-37) IU/L ALT 14 (14-63) IU/L Alkaline Phosphatase 74 (46-116) U/L Troponin I 0.060 H* (0.000-0.056) ng/mL B-Natriuretic Peptide (<100) PG/ML Total Protein 6.6 (6.4-8.2) g/dL Albumin 3.8 (3.4-5.0) g/dL Globulin 2.8 (2.6-4.0) g/dL Albumin/Globulin Ratio 1.4 (0.9-1.6) Lipase 125 (73-393) U/L TSH 3rd Generation (0.36-3.74) uIU/mL Urine Color Urine Appearance Urine pH (5.0-8.0) Ur Specific [place] (1.001-1.035) Urine Protein (NEGATIVE) mg/dL Urine Glucose (UA) (NEGATIVE) mg/dL Urine Ketones (NEGATIVE) mg/dL Urine Occult Blood (NEGATIVE) Urine Nitrite (NEGATIVE) Urine Bilirubin (NEGATIVE) Urine Urobilinogen (<2.0) EU/dL Ur Leukocyte Esterase (NEGATIVE) Urine RBC (0-2/HPF) Urine WBC (0-5/HPF) Ur Epithelial Cells (NONE-FEW) Amorphous Sediment (NEGATIVE) Urine Bacteria (NEGATIVE) Urine Mucus (NONE-MOD) 04/08/19 04/08/19 04/08/19 Range/Units 10:30 10:30 10:30 WBC (4.0-11.0) K/uL RBC (4.30-5.90) M/uL Hgb (12.0-16.0) g/dL Hct (36.0-46.0) % MCV (80.0-98.0) fL MCH (27.0-32.0) pg MCHC (31.0-37.0) g/dL RDW Std Deviation (28.0-62.0) fl RDW Coeff of Rosalinda (11.0-15.0) % Plt Count (150-400) K/uL MPV (7.40-12.00) fL Neut % (Auto) (48.0-80.0) % Lymph % (Auto) (16.0-40.0) % Grant % (Auto) (0.0-15.0) % Eos % (Auto) (0.0-7.0) % Baso % (Auto) (0.0-1.5) % Neut # (Auto) (1.4-5.7) K/uL Lymph # (Auto) (0.6-2.4) K/uL Grant # (Auto) (0.0-0.8) K/uL Eos # (Auto) (0.0-0.7) K/uL Baso # (Auto) (0.0-0.1) K/uL Nucleated RBC % /100WBC Nucleated RBCs # K/uL INR Sodium (136-145) mmol/L Potassium (3.5-5.1) mmol/L Chloride (98-107) mmol/L Carbon Dioxide (21.0-32.0) mmol/L BUN (7.0-18.0) mg/dL Creatinine (0.6-1.0) mg/dL Est Cr Clr Drug Dosing mL/min Estimated GFR (MDRD) ml/min Glucose (74-106) mg/dL Calcium (8.5-10.1) mg/dL Phosphorus 3.5 (2.6-4.7) mg/dL Magnesium 1.9 (1.8-2.4) mg/dL Total Bilirubin (0.2-1.0) mg/dL AST (15-37) IU/L ALT (14-63) IU/L Alkaline Phosphatase (46-116) U/L Troponin I (0.000-0.056) ng/mL B-Natriuretic Peptide 115 H (<100) PG/ML Total Protein (6.4-8.2) g/dL Albumin (3.4-5.0) g/dL Globulin (2.6-4.0) g/dL Albumin/Globulin Ratio (0.9-1.6) Lipase (73-393) U/L TSH 3rd Generation 3.87 H (0.36-3.74) uIU/mL Urine Color Urine Appearance Urine pH (5.0-8.0) Ur Specific [place] (1.001-1.035) Urine Protein (NEGATIVE) mg/dL Urine Glucose (UA) (NEGATIVE) mg/dL Urine Ketones (NEGATIVE) mg/dL Urine Occult Blood (NEGATIVE) Urine Nitrite (NEGATIVE) Urine Bilirubin (NEGATIVE) Urine Urobilinogen (<2.0) EU/dL Ur Leukocyte Esterase (NEGATIVE) Urine RBC (0-2/HPF) Urine WBC (0-5/HPF) Ur Epithelial Cells (NONE-FEW) Amorphous Sediment (NEGATIVE) Urine Bacteria (NEGATIVE) Urine Mucus (NONE-MOD) 04/08/19 04/08/19 04/08/19 Range/Units 11:00 15:35 17:30 WBC (4.0-11.0) K/uL RBC (4.30-5.90) M/uL Hgb 9.9 L (12.0-16.0) g/dL Hct (36.0-46.0) % MCV (80.0-98.0) fL MCH (27.0-32.0) pg MCHC (31.0-37.0) g/dL RDW Std Deviation (28.0-62.0) fl RDW Coeff of Rosalinda (11.0-15.0) % Plt Count (150-400) K/uL MPV (7.40-12.00) fL Neut % (Auto) (48.0-80.0) % Lymph % (Auto) (16.0-40.0) % Grant % (Auto) (0.0-15.0) % Eos % (Auto) (0.0-7.0) % Baso % (Auto) (0.0-1.5) % Neut # (Auto) (1.4-5.7) K/uL Lymph # (Auto) (0.6-2.4) K/uL Grant # (Auto) (0.0-0.8) K/uL Eos # (Auto) (0.0-0.7) K/uL Baso # (Auto) (0.0-0.1) K/uL Nucleated RBC % /100WBC Nucleated RBCs # K/uL INR Sodium (136-145) mmol/L Potassium (3.5-5.1) mmol/L Chloride (98-107) mmol/L Carbon Dioxide (21.0-32.0) mmol/L BUN (7.0-18.0) mg/dL Creatinine (0.6-1.0) mg/dL Est Cr Clr Drug Dosing mL/min Estimated GFR (MDRD) ml/min Glucose (74-106) mg/dL Calcium (8.5-10.1) mg/dL Phosphorus (2.6-4.7) mg/dL Magnesium (1.8-2.4) mg/dL Total Bilirubin (0.2-1.0) mg/dL AST (15-37) IU/L ALT (14-63) IU/L Alkaline Phosphatase (46-116) U/L Troponin I 0.050 (0.000-0.056) ng/mL B-Natriuretic Peptide (<100) PG/ML Total Protein (6.4-8.2) g/dL Albumin (3.4-5.0) g/dL Globulin (2.6-4.0) g/dL Albumin/Globulin Ratio (0.9-1.6) Lipase (73-393) U/L TSH 3rd Generation (0.36-3.74) uIU/mL Urine Color YELLOW Urine Appearance CLEAR Urine pH 6.0 (5.0-8.0) Ur Specific [place] <= 1.005 (1.001-1.035) Urine Protein NEGATIVE (NEGATIVE) mg/dL Urine Glucose (UA) NEGATIVE (NEGATIVE) mg/dL Urine Ketones NEGATIVE (NEGATIVE) mg/dL Urine Occult Blood SMALL H (NEGATIVE) Urine Nitrite NEGATIVE (NEGATIVE) Urine Bilirubin NEGATIVE (NEGATIVE) Urine Urobilinogen 0.2 (<2.0) EU/dL Ur Leukocyte Esterase NEGATIVE (NEGATIVE) Urine RBC 1-3 (0-2/HPF) Urine WBC 2-3 (0-5/HPF) Ur Epithelial Cells OCCASIONAL (NONE-FEW) Amorphous Sediment NOT SEEN (NEGATIVE) Urine Bacteria NOT SEEN (NEGATIVE) Urine Mucus NOT SEEN (NONE-MOD) Result Diagrams: 04/09/19 16:08 04/09/19 06:25 - Problem List (1) GI bleed SNOMED Code(s): 50590832 ICD Code: K92.2 - GASTROINTESTINAL HEMORRHAGE, UNSPECIFIED Status: Acute Current Visit: Yes (2) History of dementia SNOMED Code(s): 982136716 ICD Code: Z86.59 - PERSONAL HISTORY OF OTHER MENTAL AND BEHAVIORAL DISORDERS Status: Chronic Current Visit: Yes (3) Troponin level elevated SNOMED Code(s): 234691233, 644362251, 222182896 ICD Code: R74.8 - ABNORMAL LEVELS OF OTHER SERUM ENZYMES Status: Acute Current Visit: Yes (4) Altered mental status SNOMED Code(s): 367382057 ICD Code: R41.82 - ALTERED MENTAL STATUS, UNSPECIFIED Status: Acute Current Visit: No Problem List Initiated/Reviewed/Updated: Yes Orders Last 24hrs: Active Orders 24 hr Category Date Time Status Admission Status [Patient Status] [ADT] Stat ADT 04/08/19 13:10 Active Notify Provider Consults [RC] ASDIRECTED Care 04/08/19 15:17 Active Oxygen Therapy [RC] PRN Care 04/08/19 14:23 Active Telemetry Monitoring [Cardiac Monitoring] [RC] Q8H Care 04/08/19 14:04 Active VTE/DVT Education [RC] PER UNIT ROUTINE Care 04/08/19 14:23 Active Vital Signs [RC] Q4H Care 04/08/19 14:23 Active Consult to Physician [CONS] Routine Cons 04/08/19 15:16 Active PT Evaluation and Treatment [CONS] Routine Cons 04/08/19 14:23 Active NPO Now [Nothing per Oral Now Diet] [DIET] Diet 04/08/19 Dinner Active MRA Head Without Contrast [Ang Head wo Cont] [MR] Exams 04/08/19 14:30 Taken Routine LEVETIRACETAM, S [REF] Stat Lab 04/08/19 13:23 Received LIPID PANEL [CHEM] AM Lab 04/09/19 05:11 Ordered Furosemide [Lasix] Med 04/09/19 09:00 Active 20 mg PO DAILY Pantoprazole [ProTONIX IV] 40 mg Med 04/08/19 14:45 Active Sodium Chloride 0.9% [Normal Saline] 10 ml IV BID atorvaSTATin [Lipitor] Med 04/08/19 21:00 Active 20 mg PO BEDTIME levETIRAcetam [Keppra] 500 mg Med 04/08/19 19:00 Active Dextrose 5% in Water 100 ml IV Q12H Code Status [Resuscitation Status] Routine Resus Stat 04/08/19 19:10 Ordered Medication Orders Atorvastatin Calcium (Lipitor) 20 mg PO BEDTIME CARLYN Last Admin: 04/08/19 20:32 Dose: 20 mg Furosemide (Lasix) 20 mg PO DAILY CARLYN Pantoprazole Sodium 40 mg/ (Sodium Chloride) 10 mls @ 300 mls/hr IV BID CARLYN Last Admin: 04/08/19 20:32 Dose: 300 mls/hr Infusion: 04/08/19 15:53 Dose: 300 mls/hr Admin: 04/08/19 15:51 Dose: 300 mls/hr Levetiracetam 500 mg/ Dextrose (/Water) 105 mls @ 420 mls/hr IV Q12H [facility] Last Admin: 04/08/19 18:24 Dose: 420 mls/hr Assessment/Plan Comment:: A/P: 88 y/o F comes in with AMS, hallucinations and GI bleeding. CT scan negative for acute bleed or infarct., possible stroke vs Seizure Will obatin MRI brain 1st set trop elevated, chronic elevation in past likely sec. to demand supply mismatch due to ongoing GI bleed/Anemia Will trend another set of troponin Anticoagulation not an option right now due to GI bleeding Will start IV PPI BID 40 mg Will Keep NPO for now Cont IVF for hydrations Trend Hemoglobin After a long discussion with family about goals of care, family wants patient to be DNR/DNI
--- NOTE | 2019-04-08 22:33 | MR ---
EXAMINATION: MRA HEAD DATE: 04/08/2019 HISTORY: Patient with altered mental status. TECHNIQUE: 3D TOF MRA of the head was performed. COMPARISON: None. FINDINGS: The intracranial segments of the right internal carotid artery are normal. The anterior communicating artery is seen. The visualized portions of the right middle and anterior cerebral arteries are normal. The intracranial segments of the left internal carotid artery are normal. The visualized portions of the left middle and anterior cerebral arteries are normal. The vertebral arteries are codominant. The visualized intracranial portions of the vertebral arteries are normal. The basilar artery is normal. The right posterior cerebral artery is normal. The left posterior cerebral artery is normal. IMPRESSION: Normal MRA of the head. Dictated by: Mona Bingham MD @ 04/08/2019 22:31:27 (Electronically Signed)
--- NOTE | 2019-04-09 08:36 | PCM.PN ---
- General Info Date of Service: 04/09/19 Admission Dx/Problem (Free Text): Admission Diagnosis/Problem Admission Diagnosis/Problem Confusion Subjective Update: At baseline this morning. Daughter at bedside. Mild confusion, but she reports this is normal. No chest pain or SOB. No urinary concerns. Still feels some hallucinations were real events. Functional Status: Reports: Pain Controlled, Tolerating Diet, Ambulating - Review of Systems General: Reports: No Symptoms. Denies: Fever HEENT: Reports: No Symptoms Pulmonary: Reports: No Symptoms. Denies: Shortness of Breath Cardiovascular: Reports: No Symptoms. Denies: Chest Pain Gastrointestinal: Reports: No Symptoms. Denies: Abdominal Pain, Nausea, Vomiting Genitourinary: Reports: No Symptoms Neurological: Reports: Confusion (but at baseline). Denies: Difficulty Walking Psychiatric: Denies: Hallucinations (no longer having these) - Patient Data Vitals - Most Recent: Last Vital Signs Temp 97.1 F 04/09/19 07:24 Pulse 58 L 04/09/19 07:24 Resp 15 04/09/19 07:24 BP 121/47 L 04/09/19 07:24 Pulse Ox 96 04/09/19 07:24 Weight - Most Recent: 67.5 kg I&O - Last 24 Hours: Intake & Output 04/08/19 04/09/19 04/09/19 22:59 06:59 14:59 Intake Total 580 155 Output Total 0 Balance 580 155 Lab Results Last 24 Hours: Laboratory Results - last 24 hr 04/08/19 04/08/19 04/08/19 Range/Units 10:30 10:30 10:30 WBC 4.10 (4.0-11.0) K/uL RBC 3.06 L (4.30-5.90) M/uL Hgb 9.7 L (12.0-16.0) g/dL Hct 30.3 L (36.0-46.0) % MCV 99.0 H (80.0-98.0) fL MCH 31.7 (27.0-32.0) pg MCHC 32.0 (31.0-37.0) g/dL RDW Std Deviation 51.2 (28.0-62.0) fl RDW Coeff of Rosalinda 14 (11.0-15.0) % Plt Count 220 (150-400) K/uL MPV 8.60 (7.40-12.00) fL Neut % (Auto) 51.5 (48.0-80.0) % Lymph % (Auto) 31.2 (16.0-40.0) % [place] % (Auto) 9.5 (0.0-15.0) % Eos % (Auto) 6.1 (0.0-7.0) % Baso % (Auto) 1.7 H (0.0-1.5) % Neut # (Auto) 2.1 (1.4-5.7) K/uL Lymph # (Auto) 1.3 (0.6-2.4) K/uL [place] # (Auto) 0.4 (0.0-0.8) K/uL Eos # (Auto) 0.3 (0.0-0.7) K/uL Baso # (Auto) 0.1 (0.0-0.1) K/uL Nucleated RBC % 0.0 /100WBC Nucleated RBCs # 0 K/uL INR 1.08 Sodium 139 (136-145) mmol/L Potassium 4.2 (3.5-5.1) mmol/L Chloride 103 (98-107) mmol/L Carbon Dioxide 28.2 (21.0-32.0) mmol/L BUN 13 (7.0-18.0) mg/dL Creatinine 1.0 (0.6-1.0) mg/dL Est Cr Clr Drug Dosing 31.55 mL/min Estimated GFR (MDRD) 52.2 ml/min Glucose 116 H (74-106) mg/dL Calcium 9.2 (8.5-10.1) mg/dL Phosphorus (2.6-4.7) mg/dL Magnesium (1.8-2.4) mg/dL Total Bilirubin 0.5 (0.2-1.0) mg/dL AST 18 (15-37) IU/L ALT 14 (14-63) IU/L Alkaline Phosphatase 74 (46-116) U/L Troponin I 0.060 H* (0.000-0.056) ng/mL B-Natriuretic Peptide (<100) PG/ML Total Protein 6.6 (6.4-8.2) g/dL Albumin 3.8 (3.4-5.0) g/dL Globulin 2.8 (2.6-4.0) g/dL Albumin/Globulin Ratio 1.4 (0.9-1.6) Triglycerides (0-200) mg/dL Cholesterol (50-200) mg/dL LDL Cholesterol, Calc (60-180) mg/dL VLDL Cholesterol (5-55) mg/dL HDL Cholesterol (40-60) mg/dL Cholesterol/HDL Ratio (3.3-6.0) Lipase 125 (73-393) U/L TSH 3rd Generation (0.36-3.74) uIU/mL Urine Color Urine Appearance Urine pH (5.0-8.0) Ur Specific [place] (1.001-1.035) Urine Protein (NEGATIVE) mg/dL Urine Glucose (UA) (NEGATIVE) mg/dL Urine Ketones (NEGATIVE) mg/dL Urine Occult Blood (NEGATIVE) Urine Nitrite (NEGATIVE) Urine Bilirubin (NEGATIVE) Urine Urobilinogen (<2.0) EU/dL Ur Leukocyte Esterase (NEGATIVE) Urine RBC (0-2/HPF) Urine WBC (0-5/HPF) Ur Epithelial Cells (NONE-FEW) Amorphous Sediment (NEGATIVE) Urine Bacteria (NEGATIVE) Urine Mucus (NONE-MOD) 04/08/19 04/08/19 04/08/19 Range/Units 10:30 10:30 10:30 WBC (4.0-11.0) K/uL RBC (4.30-5.90) M/uL Hgb (12.0-16.0) g/dL Hct (36.0-46.0) % MCV (80.0-98.0) fL MCH (27.0-32.0) pg MCHC (31.0-37.0) g/dL RDW Std Deviation (28.0-62.0) fl RDW Coeff of Rosalinda (11.0-15.0) % Plt Count (150-400) K/uL MPV (7.40-12.00) fL Neut % (Auto) (48.0-80.0) % Lymph % (Auto) (16.0-40.0) % [place] % (Auto) (0.0-15.0) % Eos % (Auto) (0.0-7.0) % Baso % (Auto) (0.0-1.5) % Neut # (Auto) (1.4-5.7) K/uL Lymph # (Auto) (0.6-2.4) K/uL [place] # (Auto) (0.0-0.8) K/uL Eos # (Auto) (0.0-0.7) K/uL Baso # (Auto) (0.0-0.1) K/uL Nucleated RBC % /100WBC Nucleated RBCs # K/uL INR Sodium (136-145) mmol/L Potassium (3.5-5.1) mmol/L Chloride (98-107) mmol/L Carbon Dioxide (21.0-32.0) mmol/L BUN (7.0-18.0) mg/dL Creatinine (0.6-1.0) mg/dL Est Cr Clr Drug Dosing mL/min Estimated GFR (MDRD) ml/min Glucose (74-106) mg/dL Calcium (8.5-10.1) mg/dL Phosphorus 3.5 (2.6-4.7) mg/dL Magnesium 1.9 (1.8-2.4) mg/dL Total Bilirubin (0.2-1.0) mg/dL AST (15-37) IU/L ALT (14-63) IU/L Alkaline Phosphatase (46-116) U/L Troponin I (0.000-0.056) ng/mL B-Natriuretic Peptide 115 H (<100) PG/ML Total Protein (6.4-8.2) g/dL Albumin (3.4-5.0) g/dL Globulin (2.6-4.0) g/dL Albumin/Globulin Ratio (0.9-1.6) Triglycerides (0-200) mg/dL Cholesterol (50-200) mg/dL LDL Cholesterol, Calc (60-180) mg/dL VLDL Cholesterol (5-55) mg/dL HDL Cholesterol (40-60) mg/dL Cholesterol/HDL Ratio (3.3-6.0) Lipase (73-393) U/L TSH 3rd Generation 3.87 H (0.36-3.74) uIU/mL Urine Color Urine Appearance Urine pH (5.0-8.0) Ur Specific [place] (1.001-1.035) Urine Protein (NEGATIVE) mg/dL Urine Glucose (UA) (NEGATIVE) mg/dL Urine Ketones (NEGATIVE) mg/dL Urine Occult Blood (NEGATIVE) Urine Nitrite (NEGATIVE) Urine Bilirubin (NEGATIVE) Urine Urobilinogen (<2.0) EU/dL Ur Leukocyte Esterase (NEGATIVE) Urine RBC (0-2/HPF) Urine WBC (0-5/HPF) Ur Epithelial Cells (NONE-FEW) Amorphous Sediment (NEGATIVE) Urine Bacteria (NEGATIVE) Urine Mucus (NONE-MOD) 04/08/19 04/08/19 04/08/19 Range/Units 11:00 15:35 17:30 WBC (4.0-11.0) K/uL RBC (4.30-5.90) M/uL Hgb 9.9 L (12.0-16.0) g/dL Hct (36.0-46.0) % MCV (80.0-98.0) fL MCH (27.0-32.0) pg MCHC (31.0-37.0) g/dL RDW Std Deviation (28.0-62.0) fl RDW Coeff of Rosalinda (11.0-15.0) % Plt Count (150-400) K/uL MPV (7.40-12.00) fL Neut % (Auto) (48.0-80.0) % Lymph % (Auto) (16.0-40.0) % [place] % (Auto) (0.0-15.0) % Eos % (Auto) (0.0-7.0) % Baso % (Auto) (0.0-1.5) % Neut # (Auto) (1.4-5.7) K/uL Lymph # (Auto) (0.6-2.4) K/uL [place] # (Auto) (0.0-0.8) K/uL Eos # (Auto) (0.0-0.7) K/uL Baso # (Auto) (0.0-0.1) K/uL Nucleated RBC % /100WBC Nucleated RBCs # K/uL INR Sodium (136-145) mmol/L Potassium (3.5-5.1) mmol/L Chloride (98-107) mmol/L Carbon Dioxide (21.0-32.0) mmol/L BUN (7.0-18.0) mg/dL Creatinine (0.6-1.0) mg/dL Est Cr Clr Drug Dosing mL/min Estimated GFR (MDRD) ml/min Glucose (74-106) mg/dL Calcium (8.5-10.1) mg/dL Phosphorus (2.6-4.7) mg/dL Magnesium (1.8-2.4) mg/dL Total Bilirubin (0.2-1.0) mg/dL AST (15-37) IU/L ALT (14-63) IU/L Alkaline Phosphatase (46-116) U/L Troponin I 0.050 (0.000-0.056) ng/mL B-Natriuretic Peptide (<100) PG/ML Total Protein (6.4-8.2) g/dL Albumin (3.4-5.0) g/dL Globulin (2.6-4.0) g/dL Albumin/Globulin Ratio (0.9-1.6) Triglycerides (0-200) mg/dL Cholesterol (50-200) mg/dL LDL Cholesterol, Calc (60-180) mg/dL VLDL Cholesterol (5-55) mg/dL HDL Cholesterol (40-60) mg/dL Cholesterol/HDL Ratio (3.3-6.0) Lipase (73-393) U/L TSH 3rd Generation (0.36-3.74) uIU/mL Urine Color YELLOW Urine Appearance CLEAR Urine pH 6.0 (5.0-8.0) Ur Specific [place] <= 1.005 (1.001-1.035) Urine Protein NEGATIVE (NEGATIVE) mg/dL Urine Glucose (UA) NEGATIVE (NEGATIVE) mg/dL Urine Ketones NEGATIVE (NEGATIVE) mg/dL Urine Occult Blood SMALL H (NEGATIVE) Urine Nitrite NEGATIVE (NEGATIVE) Urine Bilirubin NEGATIVE (NEGATIVE) Urine Urobilinogen 0.2 (<2.0) EU/dL Ur Leukocyte Esterase NEGATIVE (NEGATIVE) Urine RBC 1-3 (0-2/HPF) Urine WBC 2-3 (0-5/HPF) Ur Epithelial Cells OCCASIONAL (NONE-FEW) Amorphous Sediment NOT SEEN (NEGATIVE) Urine Bacteria NOT SEEN (NEGATIVE) Urine Mucus NOT SEEN (NONE-MOD) 04/09/19 Range/Units 05:25 WBC (4.0-11.0) K/uL RBC (4.30-5.90) M/uL Hgb (12.0-16.0) g/dL Hct (36.0-46.0) % MCV (80.0-98.0) fL MCH (27.0-32.0) pg MCHC (31.0-37.0) g/dL RDW Std Deviation (28.0-62.0) fl RDW Coeff of Ros[place] (11.0-15.0) % Plt Count (150-400) K/uL MPV (7.40-12.00) fL Neut % (Auto) (48.0-80.0) % Lymph % (Auto) (16.0-40.0) % [place] % (Auto) (0.0-15.0) % Eos % (Auto) (0.0-7.0) % Baso % (Auto) (0.0-1.5) % Neut # (Auto) (1.4-5.7) K/uL Lymph # (Auto) (0.6-2.4) K/uL [place] # (Auto) (0.0-0.8) K/uL Eos # (Auto) (0.0-0.7) K/uL Baso # (Auto) (0.0-0.1) K/uL Nucleated RBC % /100WBC Nucleated RBCs # K/uL INR Sodium (136-145) mmol/L Potassium (3.5-5.1) mmol/L Chloride (98-107) mmol/L Carbon Dioxide (21.0-32.0) mmol/L BUN (7.0-18.0) mg/dL Creatinine (0.6-1.0) mg/dL Est Cr Clr Drug Dosing mL/min Estimated GFR (MDRD) ml/min Glucose (74-106) mg/dL Calcium (8.5-10.1) mg/dL Phosphorus (2.6-4.7) mg/dL Magnesium (1.8-2.4) mg/dL Total Bilirubin (0.2-1.0) mg/dL AST (15-37) IU/L ALT (14-63) IU/L Alkaline Phosphatase (46-116) U/L Troponin I (0.000-0.056) ng/mL B-Natriuretic Peptide (<100) PG/ML Total Protein (6.4-8.2) g/dL Albumin (3.4-5.0) g/dL Globulin (2.6-4.0) g/dL Albumin/Globulin Ratio (0.9-1.6) Triglycerides 50 (0-200) mg/dL Cholesterol 105 (50-200) mg/dL LDL Cholesterol, Calc 37 L (60-180) mg/dL VLDL Cholesterol 10 (5-55) mg/dL HDL Cholesterol 58 (40-60) mg/dL Cholesterol/HDL Ratio 1.8 L (3.3-6.0) Lipase (73-393) U/L TSH 3rd Generation (0.36-3.74) uIU/mL Urine Color Urine Appearance Urine pH (5.0-8.0) Ur Specific [place] (1.001-1.035) Urine Protein (NEGATIVE) mg/dL Urine Glucose (UA) (NEGATIVE) mg/dL Urine Ketones (NEGATIVE) mg/dL Urine Occult Blood (NEGATIVE) Urine Nitrite (NEGATIVE) Urine Bilirubin (NEGATIVE) Urine Urobilinogen (<2.0) EU/dL Ur Leukocyte Esterase (NEGATIVE) Urine RBC (0-2/HPF) Urine WBC (0-5/HPF) Ur Epithelial Cells (NONE-FEW) Amorphous Sediment (NEGATIVE) Urine Bacteria (NEGATIVE) Urine Mucus (NONE-MOD) Med Orders - Current: Current Medications Atorvastatin Calcium (Lipitor) 20 mg PO BEDTIME [facility] Last Admin: 04/08/19 20:32 Dose: 20 mg Folic Acid (Folic Acid) 1 mg PO DAILY [facility] Furosemide (Lasix) 20 mg PO DAILY [facility] Pantoprazole Sodium 40 mg/ (Sodium Chloride) 10 mls @ 300 mls/hr IV BID [facility] Last Admin: 04/08/19 20:32 Dose: 300 mls/hr Levetiracetam 500 mg/ Dextrose (/Water) 105 mls @ 420 mls/hr IV Q12H [facility] Last Admin: 04/09/19 06:13 Dose: 420 mls/hr Discontinued Medications Alprazolam (Xanax) 0.25 mg PO ONETIME PRN PRN Reason: Anxiety Enalaprilat (Vasotec Iv) 0.625 mg IV NOW STA Stop: 04/08/19 12:31 Last Admin: 04/08/19 13:12 Dose: Not Given Sodium Chloride (Normal Saline) 1,000 mls @ 999 mls/hr IV STAT ONE Stop: 04/08/19 11:29 Last Admin: 04/08/19 11:29 Dose: 999 mls/hr Levetiracetam (Keppra) 500 mg PO BID CARLYN - Exam General: Alert, Oriented, Cooperative, No Acute Distress Lungs: Clear to Auscultation, Normal Respiratory Effort Cardiovascular: Regular Rate, Regular Rhythm GI/Abdominal Exam: Normal Bowel Sounds, Soft, Non-Tender Extremities: Normal Inspection, Normal Range of Motion, Non-Tender, No Pedal Edema Neurological: No New Focal Deficit Psy/Mental Status: Alert, Normal Affect, Normal Mood - Problem List & Annotations (1) Altered mental status SNOMED Code(s): 740089914 Code(s): R41.82 - ALTERED MENTAL STATUS, UNSPECIFIED Status: Acute Current Visit: No (2) Confusion SNOMED Code(s): 126653623 Code(s): R41.0 - DISORIENTATION, UNSPECIFIED Status: Acute Current Visit : Yes (3) Troponin level elevated SNOMED Code(s): 999437703, 846517316, 529469261 Code(s): R74.8 - ABNORMAL LEVELS OF OTHER SERUM ENZYMES Status: Acute Current Visit: Yes (4) Hx of seizure disorder SNOMED Code(s): 604075322 Code(s): Z86.69 - PERSONAL HISTORY OF DIS OF THE NERVOUS SYS AND SENSE ORGANS Status: Chronic Current Visit: Yes (5) History of GI bleed SNOMED Code(s): 139701252 Code(s): Z87.19 - PERSONAL HISTORY OF OTHER DISEASES OF THE DIGESTIVE SYSTEM Status: Chronic Current Visit: Yes (6) History of dementia SNOMED Code(s): 817485025 Code(s): Z86.59 - PERSONAL HISTORY OF OTHER MENTAL AND BEHAVIORAL DISORDERS Status: Chronic Current Visit: Yes (7) History of TIA (transient ischemic attack) SNOMED Code(s): 054134180 Code(s): Z86.73 - PRSNL HX OF TIA (TIA), AND CEREB INFRC W/O RESID DEFICITS Status: Chronic Current Visit: No (8) History of atrial fibrillation SNOMED Code(s): 766931869 Code(s): Z86.79 - PERSONAL HISTORY OF OTHER DISEASES OF THE CIRCULATORY SYSTEM Status: Chronic Current Visit: No (9) PUD (peptic ulcer disease) SNOMED Code(s): 45351682 Code(s): K27.9 - [facility], SITE UNSP, UNSP AC OR CHR, W/O HEMOR OR PERF Status: Chronic Current Visit: No - Problem List Review Problem List Initiated/Reviewed/Updated: Yes - My Orders Last 24 Hours: My Active Orders 04/09/19 08:32 BMP [BASIC METABOLIC PANEL,BMP] [CHEM] Routine CBC WITH AUTO DIFF [HEME] Routine VITAMIN B12 [CHEM] Routine - Plan Plan:: This 88 year old female admitted with hallucinations and AMS 1.AMS: Hallucinations have since stopped. Mild confusion but at baseline per family at bedside. No infectious source. MRI/MRA brain no acute infarction noted. I spoke with Dr Thao, who knows patient. Recommended to continue Keppra for now and she will follow up with her in the clinic. Will transition to PO Keppra today. 2.GI bleed: Was admitted for upper GI bleed beginning of March, has been holding ASA at home and taking Omeprazole. Daughter denies alan bloody stools and no black stools at home. Will continue PPI for now and hold ASA. Restart diet and home medications. Recheck HH this evening. 3.Elevated troponin: repeat was back to normal. No chest pain likely demand / supply mismatch due to GI bleed. 4.Afib: Hold ASA. Hx of intracranial bleeding on blood thinners, which is why she was switched to ASA only. Will consider started EC ASA 81 mg. Restart medications. Stable. VTE prophylaxis: None, risk of bleeding Dispo: 1 day.
[2019-04-09] MEDS: Folic Acid 1 MG Tab PO SCH (09:15)
[2019-04-09] MEDS: Pantoprazole 40 MG in Sodium Chloride 0.9% 10 ML IV SCH ×2 (09:16→22:37)
[2019-04-09] MEDS: Furosemide 20 MG Tab PO SCH (09:16)
[2019-04-09 09:35] LABS: CARBON DIOXIDE,CO2 27.9 mmol/L (21.0-32.0); POTASSIUM,K 3.8 mmol/L (3.5-5.1)
[2019-04-09] MEDS ORDERED: Polyethylene Glycol 3350 Powder 17 GM Packet PO PRN (11:17)
--- NOTE | 2019-04-09 12:23 | MR ---
INDICATION: 88-year-old female. Hallucinations. History of seizures. Technique : Routine multiple acquisition, multiplanar MRI imaging of the brain. COMPARISON: Brain and MRA brain exam is dated 04/08/2029. Findings : The ventricles and subarachnoid spaces are proportionately enlarged due to generalized atrophy there are multifocal and confluent areas of FLAIR and T2 signal hyperintensity throughout the supratentorial white matter and also in the upper brain stem within few corresponding areas of T2 shine through consistent with chronic microvascular ischemia and small chronic infarcts. No evidence of acute ischemic infarction at this time. No evidence of intracranial hemorrhage. No mass effect at the usual expected flow voids within the major cerebral arteries and dural venous sinuses imply gross patency these major vascular structures. Some deformity of the medial wall of the left orbit as noted on prior CT probably relates to old trauma. IMPRESSION: 1. There is no evidence of acute infarction intracranial hemorrhage or mass. 2. 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 3. Atrophy. Dictated by Pawan Spring MD @ Apr 09 2019 12:11PM Signed by Dr. Pawan Spring @ Apr 09 2019 12:21PM
[2019-04-09] MEDS ORDERED: Metoprolol Tartrate 50 MG Tab PO SCH (21:00)
[2019-04-09] MEDS: levETIRAcetam 500 MG Tab PO SCH (22:34)
[2019-04-09] MEDS: atorvaSTATin 40 MG Tab PO SCH (22:34)
[2019-04-09] MEDS: Metoprolol Tartrate 25 MG Tab PO SCH (22:35)
[2019-04-10 06:40] LABS: CARBON DIOXIDE,CO2 29.4 mmol/L (21.0-32.0); POTASSIUM,K 3.6 mmol/L (3.5-5.1)
[2019-04-10] MEDS: Pantoprazole 40 MG in Sodium Chloride 0.9% 10 ML IV SCH (08:42)
[2019-04-10] MEDS: Furosemide 20 MG Tab PO SCH (08:45)
[2019-04-10] MEDS: Metoprolol Tartrate 25 MG Tab PO SCH (08:45)
[2019-04-10] MEDS: Folic Acid 1 MG Tab PO SCH (08:45)
[2019-04-10] MEDS: levETIRAcetam 500 MG Tab PO SCH (08:47)
--- NOTE | 2019-04-10 18:14 | PCM.DCSUM1 ---
<Real Royal - Last Filed: 04/11/19 14:54> Discharge Summary - Hospital Course Free Text/Narrative:: 88-year-old female admitted for hallucination and altered mental status. She has a PMH of GI bleed, TIA, dementia, seizures and atrial fibrillation. MRI/MRA brain showed no acute infarction. Neurology contacted who is aware of patient and recommended to continue keppra and have patient follow-up in clinic. Patient also had history of GI bleed and was noted to have elevated troponin level. Her aspirin was held. Repeat troponin was normal and likely secondary to supply/demand mismatch secondary to GI bleed. Patient mentation improved throughout the course of her hospitalization and did not have any more hallucinations. Patient discharged in stable condition. Diagnosis: Stroke: No - Discharge Data Discharge Date: 04/10/19 Discharge Disposition: Home, Self-Care 01 Condition: Stable - Referral to Home Health Primary Care Physician: Bradley Palma MD - Patient Summary/Data Consults: Consultations 04/08/19 14:23 PT Evaluation and Treatment [CONS] Routine 04/08/19 15:16 Consult to Physician [CONS] Routine - Patient Instructions Diet: Heart Healthy Diet Activity: As Tolerated Driving: Do Not Drive Showering/Bathing: May Shower Notify Provider of: Fever, Nausea and/or Vomiting - Discharge Plan *PRESCRIPTION DRUG MONITORING PROGRAM REVIEWED*: Not Applicable *COPY OF PRESCRIPTION DRUG MONITORING REPORT IN PATIENT MISA: Not Applicable Prescriptions/Med Rec: Metoprolol Tartrate [Lopressor] 25 mg PO BID #30 tablet Polyethylene Glycol 3350 [Powderlax] 17 gm PO DAILY PRN 30 Days #30 powd.pack PRN Reason: Constipation Home Medications: Home Meds Acetaminophen 1,000 mg PO BID PRN 06/25/17 [History] Furosemide 20 mg PO DAILY 06/25/17 [History] Losartan [Cozaar] 50 mg PO DAILY 06/25/17 [History] Multivitamin [Multivitamins] 1 tab PO DAILY 06/25/17 [History] Potassium Chloride 10 meq PO BID 06/25/17 [History] atorvaSTATin [Lipitor] 20 mg PO BEDTIME 06/25/17 [History] Bisacodyl 10 mg RECTAL ASDIRECTED 03/22/19 [History] levETIRAcetam [Keppra] 500 mg PO BID 03/22/19 [History] Omeprazole 20 mg PO DAILY #30 capsule.dr 03/24/19 [Rx] Sucralfate [Carafate] 1 gm PO QIDACANDBED #30 cup 03/24/19 [Rx] Folic Acid 1 tab DAILY 04/08/19 [History] traMADol HCl [Tramadol HCl] 50 mg PO Q12HR PRN 04/08/19 [History] Ferrous Sulfate 324 mg PO DAILY 04/09/19 [History] Metoprolol Tartrate [Lopressor] 25 mg PO BID #30 tablet 04/10/19 [Rx] Polyethylene Glycol 3350 [Powderlax] 17 gm PO DAILY PRN 30 Days #30 powd.pack [Rx] Patient Handouts: Metoprolol tablets, Confusion, Polyethylene Glycol powder Referrals: Maricruz Thao MD [Physician] - 05/05/19 11:30 am (1-2 week follow-up) Bradley Palma MD [Primary Care Provider] - 04/18/19 2:00 pm - Discharge Summary/Plan Comment DC Time >30 min.: No - Patient Data Vitals - Most Recent: Last Vital Signs Temp 98.8 F 04/10/19 12:00 Pulse 74 04/10/19 12:00 Resp 18 04/10/19 12:00 BP 116/65 04/10/19 12:00 Pulse Ox 96 04/10/19 12:00 Weight - Most Recent: 63.73 kg I&O - Last 24 hours: Intake & Output 04/10/19 04/10/19 04/10/19 06:59 14:59 22:59 Intake Total 390 10 500 Output Total 550 Balance 390 10 -50 Lab Results - Last 24 hrs: Laboratory Results - last 24 hr 04/10/19 04/10/19 Range/Units 06:00 06:00 Hgb 9.3 L (12.0-16.0) g/dL Hct 28.5 L (36.0-46.0) % Sodium 142 (136-145) mmol/L Potassium 3.6 (3.5-5.1) mmol/L Chloride 105 (98-107) mmol/L Carbon Dioxide 29.4 (21.0-32.0) mmol/L BUN 12 (7.0-18.0) mg/dL Creatinine 1.0 (0.6-1.0) mg/dL Est Cr Clr Drug Dosing 31.55 mL/min Estimated GFR (MDRD) 52.2 ml/min Glucose 84 (74-106) mg/dL Calcium 8.9 (8.5-10.1) mg/dL Med Orders - Current: Current Medications Discontinued Medications Alprazolam (Xanax) 0.25 mg PO ONETIME PRN PRN Reason: Anxiety Atorvastatin Calcium (Lipitor) 20 mg PO BEDTIME [facility] Last Admin: 04/09/19 22:34 Dose: 20 mg Enalaprilat (Vasotec Iv) 0.625 mg IV NOW STA Stop: 04/08/19 12:31 Last Admin: 04/08/19 13:12 Dose: Not Given Folic Acid (Folic Acid) 1 mg PO DAILY [facility] Last Admin: 04/10/19 08:45 Dose: 1 mg Furosemide (Lasix) 20 mg PO DAILY [facility] Last Admin: 04/10/19 08:45 Dose: 20 mg Sodium Chloride (Normal Saline) 1,000 mls @ 999 mls/hr IV STAT ONE Stop: 04/08/19 11:29 Last Admin: 04/08/19 11:29 Dose: 999 mls/hr Pantoprazole Sodium 40 mg/ (Sodium Chloride) 10 mls @ 300 mls/hr IV BID [facility] Last Admin: 04/10/19 08:42 Dose: 300 mls/hr Levetiracetam 500 mg/ Dextrose (/Water) 105 mls @ 420 mls/hr IV Q12H [facility] Last Admin: 04/09/19 06:13 Dose: 420 mls/hr Levetiracetam (Keppra) 500 mg PO BID [facility] Levetiracetam (Keppra) 500 mg PO BID [facility] Last Admin: 04/10/19 08:47 Dose: 500 mg Metoprolol Tartrate (Lopressor) 50 mg PO BID CARLYN Metoprolol Tartrate (Lopressor) 25 mg PO BID [facility] Last Admin: 04/10/19 08:45 Dose: 25 mg Polyethylene Glycol (Miralax) 17 gm PO DAILY PRN PRN Reason: constipation <Pernell,Hooria - Last Filed: 04/13/19 13:20> Discharge Summary - Hospital Course HPI Initial Comments: I have seen and evaluated the patient and agree with the residents note unless specified in my note - Referral to Home Health Primary Care Physician: Bradley Palma MD - Discharge Diagnosis/Problem(s) (1) Altered mental status SNOMED Code(s): 182177200 ICD Code: R41.82 - ALTERED MENTAL STATUS, UNSPECIFIED Status: Acute (2) GI bleed SNOMED Code(s): 75396823 ICD Code: K92.2 - GASTROINTESTINAL HEMORRHAGE, UNSPECIFIED Status: Acute (3) History of dementia SNOMED Code(s): 986180168 ICD Code: Z86.59 - PERSONAL HISTORY OF OTHER MENTAL AND BEHAVIORAL DISORDERS Status: Chronic (4) Troponin level elevated SNOMED Code(s): 832369147, 451813925, 301483204 ICD Code: R74.8 - ABNORMAL LEVELS OF OTHER SERUM ENZYMES Status: Acute - Patient Summary/Data Consults: Consultations 04/08/19 14:23 PT Evaluation and Treatment [CONS] Routine 04/08/19 15:16 Consult to Physician [CONS] Routine - Patient Data Vitals - Most Recent: Last Vital Signs Temp 37.1 C 04/10/19 12:00 Pulse 74 04/10/19 12:00 Resp 18 04/10/19 12:00 BP 116/65 04/10/19 12:00 Pulse Ox 96 04/10/19 12:00 Lab Results - Last 24 hrs: Laboratory Results - last 24 hr 04/08/19 Range/Units 13:23 Levetiracetam 34.2 (10.0-40.0) ug/mL Med Orders - Current: Current Medications Discontinued Medications Alprazolam (Xanax) 0.25 mg PO ONETIME PRN PRN Reason: Anxiety Atorvastatin Calcium (Lipitor) 20 mg PO BEDTIME [facility] Last Admin: 04/09/19 22:34 Dose: 20 mg Enalaprilat (Vasotec Iv) 0.625 mg IV NOW STA Stop: 04/08/19 12:31 Last Admin: 04/08/19 13:12 Dose: Not Given Folic Acid (Folic Acid) 1 mg PO DAILY [facility] Last Admin: 04/10/19 08:45 Dose: 1 mg Furosemide (Lasix) 20 mg PO DAILY [facility] Last Admin: 04/10/19 08:45 Dose: 20 mg Sodium Chloride (Normal Saline) 1,000 mls @ 999 mls/hr IV STAT ONE Stop: 04/08/19 11:29 Last Admin: 04/08/19 11:29 Dose: 999 mls/hr Pantoprazole Sodium 40 mg/ (Sodium Chloride) 10 mls @ 300 mls/hr IV BID [facility] Last Admin: 04/10/19 08:42 Dose: 300 mls/hr Levetiracetam 500 mg/ Dextrose (/Water) 105 mls @ 420 mls/hr IV Q12H [facility] Last Admin: 04/09/19 06:13 Dose: 420 mls/hr Levetiracetam (Keppra) 500 mg PO BID [facility] Levetiracetam (Keppra) 500 mg PO BID [facility] Last Admin: 04/10/19 08:47 Dose: 500 mg Metoprolol Tartrate (Lopressor) 50 mg PO BID [facility] Metoprolol Tartrate (Lopressor) 25 mg PO BID [facility] Last Admin: 04/10/19 08:45 Dose: 25 mg Polyethylene Glycol (Miralax) 17 gm PO DAILY PRN PRN Reason: constipation
== END 2019-04-10 16:00 | disposition home or self-care (01) ==
LOC: MW.ED 09:36 → MW.MS 13:34
PROVIDERS: ADMIT Student in an Organized Health Care Education/Training Program; ATTEND Student in an Organized Health Care Education/Training Program
DX: R41.82 Altered mental status, unspecified (principal); K92.2 Gastrointestinal hemorrhage, unspecified; F03.90 Unspecified dementia, unspecified severity, without behavioral disturbance, psychotic disturbance, mood disturbance, and anxiety; R79.89 Other specified abnormal findings of blood chemistry; G40.909 Epilepsy, unspecified, not intractable, without status epilepticus; I48.91 Unspecified atrial fibrillation; E78.00 Pure hypercholesterolemia, unspecified; J45.909 Unspecified asthma, uncomplicated; G89.29 Other chronic pain; M54.9 Dorsalgia, unspecified; M19.90 Unspecified osteoarthritis, unspecified site; Z87.891 Personal history of nicotine dependence; Z79.82 Long term (current) use of aspirin; Z79.899 Other long term (current) drug therapy; Z88.8 Allergy status to other drugs, medicaments and biological substances; Z88.5 Allergy status to narcotic agent; Z86.73 Personal history of transient ischemic attack (TIA), and cerebral infarction without residual deficits
CPT/HCPCS: 36415; 70450; 70544; 70551; 71045; 80048; 80053; 80061; 80177; 81001; 82607; 83690; 83735; 83880; 84100; 84443; 84484; 85014; 85018; 85025; 85610; 93005; 96361; 96365; 96375; 96376; 97161; 99285; A9270; C9113; G0378; J1953; J7040; J7050; J7060; 96360; 99284; J7030